=== PATIENT | male | born 1940 | race Caucasian/White ===

== ENCOUNTER 2017-04-19 11:58 | Inpatient (IN) | payer BC, OTHER ==
[2017-04-19] VITALS (9 sets, daily range): BP systolic 136–157; BP diastolic 83–93; PULSE 63–96; TEMP 37.2; O2SAT 87–97; Ht 172.7 cm; Wt 94.3 kg
[~2017-04-19] VITALS: Ht 172.7 cm; Wt 94.3 kg
[2017-04-19] MEDS ORDERED: SODIUM CHLORIDE 0.9% 1000ML 1,000 ML IV STA (12:18)
[2017-04-19] MEDS ORDERED: ALBUT/IPRATROP 3MG/0.5MG NEB 3 ML VIAL INH STA (12:25)
[2017-04-19] MEDS ORDERED: METHYLPREDNISOLONE 125 MG VIAL IV STA (12:30)
[2017-04-19] MEDS ORDERED: PIPERACILLIN/TAZOBACTAM 4.5 GM/100ML D5W IV STA (12:32)
[2017-04-19] MEDS ORDERED: LEVAQUIN 750MG / 150ML D5W IV ONE (12:45)
--- NOTE | 2017-04-19 12:49 | EMERGENCY ROOM VISIT NOTE ---
History First contact with patient: 12:13 Chief Complaint: RESPIRATORY PROBLEMS Stated Complaint: BREATHING DIFFICULTY History of Present Illness The patient is a 76 year old male with myasthenia gravis and polycythemia jennifer vera who presents to the Emergency Room with complaints of cough and shortness of breath. He has been getting progressively unwell for the past week with worsening cough and shortness of breath. He reports no problems with eyelid droop or swallowing which have previously been a problem with his myasthenia crisis. He last had a myasthenia crisis two years previously requiring plasmapheresis. He previously has had all his care in [place] but recently moved to the area. He has had his pneumococcal vaccinations. He most recent decreased his prednisone from 20->15mg 1 month previously. On arrival his oxygen saturations are 79% on room air. He denies any fevers, chills, chest pain , previous SD, asthma or COPD. His myasthenia gravis [facility] physician is Dr Morris and he sees Dr Alfaro locally. 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 HTN Hypothyroidism Hx melanoma Hx prostate cancer GERD HTN Polycythemia jennifer vera Social History Smoking Status: Former Smoker Smokeless Tobacco Use: No Alcohol Use: none Drug Use: none Marital Status: Housing Status: lives with family Current/Historical Medications Scheduled Amlodipine (Norvasc), 5 MG PO DAILY Aspirin (Aspirin Ec), 81 MG PO DAILY Azathioprine (Imuran), 50 MG PO DAILY Cholecalciferol (Vitamin D3), 1 CAP PO DAILY Hydrochlorothiazide (Hctz), 25 MG PO DAILY Levothyroxine Sodium (Levothyroxine Sodium), 1 TAB PO DAILY Omeprazole (Prilosec), 40 MG PO DAILY Prednisone (Prednisone), 1.5 TAB PO UD Pyridostigmine [place] (Mestinon), 60 MG PO QID Physical Exam Vital Signs Date Time Temp Pulse Resp B/P (MAP) Pulse Ox O2 Delivery O2 Flow Rate FiO2 04/19/17 16:15 72 23 91 04/19/17 16:01 139/81 04/19/17 16:00 73 21 90 Nasal Cannula 6.0 Humidified Oxygen 12/9/17 15:45 78 32 91 Nasal Cannula 6.0 Humidified Oxygen 04/19/17 15:30 72 28 146/80 89 04/19/17 15:15 72 41 88 04/19/17 15:00 70 31 152/77 89 Nasal Cannula 6.0 Humidified Oxygen 04/19/17 14:36 68 32 136/78 91 Nasal Cannula 6.0 Humidified Oxygen 04/19/17 13:35 73 37 92 Nasal Cannula 6.0 04/19/17 13:31 92 Nasal Cannula 6.0 04/19/17 13:31 135/102 04/19/17 13:20 72 26 88 04/19/17 13:05 74 29 83 04/19/17 13:01 140/77 04/19/17 12:50 81 27 96 04/19/17 12:35 74 15 95 04/19/17 12:30 150/90 04/19/17 12:20 80 19 93 04/19/17 12:12 79 04/19/17 12:10 37.5 77 14 135/75 79 Room Air 04/19/17 12:06 135/75 04/19/17 11:58 79 Room Air Physical Exam General Appearance: WD/WN, + mild distress (respiratory) Head: normocephalic, atraumatic Eyes: normal inspection (pupils equal) ENT: pharynx normal (moist mucus membranes) Neck: supple, no JVD, trachea midline Respiratory/Chest: no accessory muscle use, + respiratory distress (mild), + crackles (b/l worse on left base, coarse, no wheezing) Cardiovascular: regular rate, rhythm, no murmur, normal peripheral pulses Abdomen / GI: normal bowel sounds, non tender, soft Back: no CVA tenderness Extremities: no calf tenderness, normal capillary refill, no pedal edema Neurologic/Psych: alert, oriented x 3, + pertinent finding (no facial muscle fatigue noted) Medical Decision & Procedures ER Provider Diagnostic Interpretation: CHEST ONE VIEW PORTABLE CLINICAL HISTORY: Shortness of breath. COMPARISON STUDY: No previous studies for comparison. FINDINGS: There is no pneumothorax. Mild elevation of the right hemidiaphragm is noted. No pleural effusion is noted. Extensive bilateral airspace opacities are present. Cardiac size is within normal limits. No cavitation is identified. IMPRESSION: Extensive bilateral airspace opacities. Bilateral pneumonia is favored. However, pulmonary edema or hemorrhage could appear similar. Metastatic disease is also within the differential although is considered less likely. Radiographic follow-up is recommended to ensure resolution. Electronically signed by: Andre Tripathi M.D. 04/19/2017 1:05 PM Dictated Date/Time: 04/19/2017 1:03 PM Laboratory Results Test 04/19/17 12:10 04/19/17 13:45 04/19/17 14:20 04/19/17 15:49 Prothrombin Time 10.7 SECONDS (9.0-12.0) Prothromb Time International Ratio 1.0 (0.9-1.1) Troponin I 0.045 ng/ml (0-0.045) Procalcitonin 0.31 ng/ml (0-0.5) Influenza Type A (RT-PCR) Neg for Influ A (NEG) Influenza Type B (RT-PCR) Neg for Influ B (NEG) Total Bilirubin 1.1 mg/dl (0.2-1) Direct Bilirubin 0.4 mg/dl (0-0.2) Aspartate Amino Transf (AST/SGOT) 128 U/L (15-37) Alanine Aminotransferase (ALT/SGPT) 89 U/L (12-78) Alkaline Phosphatase 165 U/L (45-117) Pro-B-Type Natriuretic Peptide 138 pg/ml (0-900) Total Protein 6.5 gm/dl (6.4-8.2) Albumin 2.8 gm/dl (3.4-5.0) Arterial Blood pH 7.45 (7.35-7.45) Arterial Blood Partial Pressure CO2 43 mmHg (35-46) Arterial Blood Partial Pressure O2 62 mm/Hg (80-95) Arterial Blood HCO3 30 mmol/L (19-24) Arterial Blood Oxygen Saturation 90.0 % (90-95) Arterial Blood Base Excess 5.0 mEq/L (-9-1.8) Arterial Blood Gas Delivery 5 L [place] Test POS (POS) Date/Time Source Procedure Growth Status 04/19/17 00:00 Nasal MRSA DNA Surveillance Screen - Final Specimen Negative for MRSA by DNA Probe Complete Medications Administered Medications (Trade) Dose Ordered Sig/Kevin Route Start Time Stop Time Status Last Admin Dose Admin Sodium Chloride 1,000 ml @ 999 mls/hr Q1H1M STAT IV 04/19/17 12:18 04/19/17 13:18 DC 04/19/17 12:31 999 MLS/HR Albuterol/ Ipratropium (Duoneb) 3 ml ONE STAT INH 04/19/17 12:25 04/19/17 12:26 DC 04/19/17 12:33 3 ML Methylprednisolone Sodium Succinate (Solu-Medrol IV) 125 mg NOW STAT IV 04/19/17 12:30 04/19/17 12:33 DC 04/19/17 13:36 125 MG Piperacillin Sod/ Tazobactam Sod (Zosyn Iv) 4.5 gm NOW STAT IV 04/19/17 12:32 04/19/17 12:34 DC 04/19/17 13:36 4.5 GM Levofloxacin (Levaquin / D5W) 750 mg NOW ONCE IV 04/19/17 12:45 04/19/17 12:46 DC 04/19/17 13:58 750 MG Pyridostigmine [place] (Mestinon Tab) 60 mg ONE STAT PO 04/19/17 13:02 04/19/17 13:03 DC 04/19/17 13:57 60 MG Potassium Chloride (Klor-Con Tab) 40 meq NOW STAT PO 04/19/17 14:04 04/19/17 14:06 DC 04/19/17 14:35 40 MEQ ECG Indication: SOB/dyspnea Rate (beats per minute): 71 Comparison ECG Date: no prior available Change: Normal sinus rhythm ST & T wave abnormality, consider lateral ischemia Abnormal ECG No previous ECGs available Confirmed by JEANINE WHATLEY ([id number]) on 04/20/2017 11:59:37 AM ED Course Complete history and physical was performed by myself - labs, CXR and solu- medrol were ordered The patient was discussed with Dr Porras who separately performed history and examination After his CXR showed bilateral opacifications consistent with history and concerning for pneumonia, Zosyn and Levaquin were ordered The patient was reassessed multiple times throughout his ER stay His care was discussed with [facility]. I do not believe his current condition is consistent with myasthenia crisis and more likely represents a pneumonia therefore I do not feel an emergent transfer is currently necessary. Medical Decision Prior records/ancillary studies reviewed. Triage Nursing notes reviewed. Additional history obtained from the patient and his . The patient's history was concerning for shortness of breath with myasthenia gravis. Differential diagnosis: Etiologies such as infections, reactive airway disease, pneumonia, pneumothorax , COPD, CHF, cardiac ischemia, pulmonary embolism, musculoskeletal, gastrointestinal, as well as others were entertained. Physical examination: As above. bilateral crackles R > L ER treatment provided: 1L NSS bolus 125mg Solu-medrol IV Duoneb Zosyn 4.5g IV Levaquin 750mg IV Pyridostigmine 60mg PO (usual dose and time for patient) On reassessment the patient felt better but still requiring 5L O2. Diagnostic interpretation by me: The electrocardiogram showed some ST changes however likely demand related with troponin 0.045 The labs revealed elevated WBC and lactic acid. The patient was hypoxic (on no oxygen at home and currently requiring 5L in the ER to maintain 92-94%) Imaging studies: Chest x-ray as above Concerning findings of pneumonia with hypoxia with history of myasthenia gravis. I do not believe this represents a myasthenia crisis as currently the patient Consultation: A consultation was placed with the [facility] hospitalist (Dr Sanches). The case was discussed and diagnostics were reviewed. The patient was evaluated in the ER for further treatment. Medication Reconcilliation Current Medication List: was personally reviewed by me Consults Time Called: 13:24 Consulting Physician: Dr Sanches ([facility] Hospitalist) Returned Call: 13:24 Impression Primary Impression: Bilateral pneumonia Additional Impressions: Myasthenia gravis Hypoxia Hypokalemia Departure Information Dispostion Being Evaluated By Hospitalist Condition FAIR Referrals Kai Freeman M.D. (PCP) Patient Instructions [facility] Resident Tracking Resident Involvement: Resident Care Provided Care Provided: Adult ED Problem Qualifiers Primary Impression: Bilateral pneumonia Pneumonia type: due to unspecified organism Lung location: unspecified part of lung Qualified Codes: J18.9 - Pneumonia, unspecified organism
[2017-04-19 12:50] LABS: BASO % 0.2 %; BASO ABS # 0.03 K/uL (0-0.2); EOS % 0.1 %; EOS ABS # 0.02 K/uL (0-0.5); HEMATOCRIT 44.1 % (42-52); HEMOGLOBIN 13.7 g/dL (14.0-18.0); IG# 0.05 K/uL (0.00-0.02); LYMPH % 4.2 %; LYMPH ABS # 0.58 K/uL (1.2-3.4); MEAN CELL VOLUME 80.5 fL (80-100); MEAN CORPUSCULAR HGB CONC 31.1 g/dl (32-36); MEAN PLATELET VOLUME 9.7 fL (7.4-10.4); MONO % 4.5 %; MONO ABS # 0.62 K/uL (0.11-0.59); NEUT % 90.6 %; NEUT ABS # 12.45 K/uL (1.4-6.5); PLATELET COUNT 516 K/uL (130-400); RED CELL DISTRIBUTION WIDTH CV 17.4 % (11.5-14.5); RED CELL DISTRIBUTION WIDTH SD 50.2 fL (36.4-46.3); WHITE BLOOD COUNT 13.75 K/uL (4.8-10.8)
[2017-04-19] MEDS ORDERED: PYRIDOSTIGMINE BROMIDE 60 MG TAB PO STA (13:02)
[2017-04-19 13:06] LABS: CREATININE 1.1 mg/dl (0.60-1.40)
--- NOTE | 2017-04-19 13:07 | DIAGNOSTIC IMAGING REPORT ---
CHEST ONE VIEW PORTABLE CLINICAL HISTORY: Shortness of breath. COMPARISON STUDY: No previous studies for comparison. FINDINGS: There is no pneumothorax. Mild elevation of the right hemidiaphragm is noted. No pleural effusion is noted. Extensive bilateral airspace opacities are present. Cardiac size is within normal limits. No cavitation is identified. IMPRESSION: Extensive bilateral airspace opacities. Bilateral pneumonia is favored. However, pulmonary edema or hemorrhage could appear similar. Metastatic disease is also within the differential although is considered less likely. Radiographic follow-up is recommended to ensure resolution. Electronically signed by: Andre Tripathi M.D. 04/19/2017 1:05 PM Dictated Date/Time: 04/19/2017 1:03 PM
[2017-04-19] MEDS ORDERED: POTASSIUM CHLORIDE 20 MEQ TABCR PO STA (14:04)
--- NOTE | 2017-04-19 14:07 | EMERGENCY ROOM VISIT NOTE ---
History Report prepared by Taco: Lora Kaplan Under the Supervision of: Dr. John Porras D.O. First contact with patient: 12:13 Chief Complaint: RESPIRATORY PROBLEMS Stated Complaint: BREATHING DIFFICULTY History of Present Illness The patient is a 76 year old male who presents to the Emergency Room with complaints of worsening shortness of breath beginning 1 week ago. The patient also reports having a non-productive cough. He states that he recently decreased his prednisone, which he was on for myasthenia gravis. The patient states that he was a smoker and quit 40 years ago. Source of History: patient Onset: 1 week ago Position: other (global) Quality: other (shortness of breath ) Timing: worsening Associated Symptoms: + cough (non-productive) Review of Systems See HPI for pertinent positives & negatives. A total of 10 systems reviewed and were otherwise negative. Family History No pertinent family history stated. Social History Smoking Status: Former Smoker Marital Status: Physical Exam Vital Signs Date Time Temp Pulse Resp B/P (MAP) Pulse Ox O2 Delivery O2 Flow Rate FiO2 04/19/17 13:35 73 37 92 Nasal Cannula 6.0 04/19/17 13:31 92 Nasal Cannula 6.0 04/19/17 13:31 135/102 04/19/17 13:20 72 26 88 04/19/17 13:05 74 29 83 04/19/17 13:01 140/77 04/19/17 12:50 81 27 96 04/19/17 12:35 74 15 95 04/19/17 12:30 150/90 04/19/17 12:20 80 19 93 04/19/17 12:12 79 04/19/17 12:10 37.5 77 14 135/75 79 Room Air 04/19/17 12:06 135/75 04/19/17 11:58 79 Room Air Physical Exam CONSTITUTIONAL/VITAL SIGNS: Reviewed / noted above. GENERAL: Non-toxic in appearance. INTEGUMENTARY: Warm, dry, and [place]. HEAD: Normocephalic. EYES: without scleral icterus or trauma. ENT/OROPHARYNX: clear and moist. LYMPHADENOPATHY/NECK: Is supple without lymphadenopathy or meningismus. RESPIRATORY: Bilateral crackles. Mild increased work of breathing. CARDIOVASCULAR: Regular rate and rhythm. GI/ABDOMEN: Soft and nontender. No organomegaly or pulsatile mass. No rebound or guarding. Normal bowel sounds. EXTREMITIES: Warm and well perfused. BACK: No CVA tenderness. NEUROLOGICAL: Intact without focal deficits. PSYCHIATRIC: normal affect. MUSCULOSKELETAL: Normally developed with good muscle tone. Medical Decision & Procedures ER Provider Diagnostic Interpretation: Radiology results as stated below per my review and radiologist interpretation: CHEST ONE VIEW PORTABLE CLINICAL HISTORY: Shortness of breath. COMPARISON STUDY: No previous studies for comparison. FINDINGS: There is no pneumothorax. Mild elevation of the right hemidiaphragm is noted. No pleural effusion is noted. Extensive bilateral airspace opacities are present. Cardiac size is within normal limits. No cavitation is identified. IMPRESSION: Extensive bilateral airspace opacities. Bilateral pneumonia is favored. However, pulmonary edema or hemorrhage could appear similar. Metastatic disease is also within the differential although is considered less likely. Radiographic follow-up is recommended to ensure resolution. Electronically signed by: Andre Tripathi M.D. 04/19/2017 1:05 PM Dictated Date/Time: 04/19/2017 1:03 PM Laboratory Results 04/19/17 12:10 Red Blood Count 5.48, Mean Corpuscular Volume 80.5, Mean Corpuscular Hemoglobin 25.0, Mean Corpuscular Hemoglobin Concent 31.1, Mean Platelet Volume 9.7, Neutrophils (%) (Auto) 90.6, Lymphocytes (%) (Auto) 4.2, Monocytes (%) (Auto) 4.5, Eosinophils (%) (Auto) 0.1, Basophils (%) (Auto) 0.2, Neutrophils # (Auto) 12.45, Lymphocytes # (Auto) 0.58, Monocytes # (Auto) 0.62, Eosinophils # (Auto) 0.02, Basophils # (Auto) 0.03 04/19/17 12:10 Test 04/19/17 12:10 04/19/17 13:11 04/19/17 13:45 White Blood Count 13.75 K/uL (4.8-10.8) Red Blood Count 5.48 M/uL (4.7-6.1) Hemoglobin 13.7 g/dL (14.0-18.0) Hematocrit 44.1 % (42-52) Mean Corpuscular Volume 80.5 fL (80-100) Mean Corpuscular Hemoglobin 25.0 pg (25-34) Mean Corpuscular Hemoglobin Concent 31.1 g/dl (32-36) Platelet Count 516 K/uL (130-400) Mean Platelet Volume 9.7 fL (7.4-10.4) Neutrophils (%) (Auto) 90.6 % Lymphocytes (%) (Auto) 4.2 % Monocytes (%) (Auto) 4.5 % Eosinophils (%) (Auto) 0.1 % Basophils (%) (Auto) 0.2 % Neutrophils # (Auto) 12.45 K/uL (1.4-6.5) Lymphocytes # (Auto) 0.58 K/uL (1.2-3.4) Monocytes # (Auto) 0.62 K/uL (0.11-0.59) Eosinophils # (Auto) 0.02 K/uL (0-0.5) Basophils # (Auto) 0.03 K/uL (0-0.2) RDW Standard Deviation 50.2 fL (36.4-46.3) RDW Coefficient of Variation 17.4 % (11.5-14.5) Immature Granulocyte % (Auto) 0.4 % Immature Granulocyte # (Auto) 0.05 K/uL (0.00-0.02) Anion Gap 8.0 mmol/L (3-11) Est Creatinine Clear Calc Drug Dose 64.7 ml/min Estimated GFR () 75.7 Estimated GFR (Non- 65.3 BUN/Creatinine Ratio 15.4 (10-20) Calcium Level 9.0 mg/dl (8.5-10.1) Magnesium Level 1.8 mg/dl (1.8-2.4) Troponin I 0.045 ng/ml (0-0.045) Lactic Acid Level 3.9 mmol/L (0.4-2.0) Laboratory results as stated above per my review. Medications Administered Medications (Trade) Dose Ordered Sig/Kevin Route Start Time Stop Time Status Last Admin Dose Admin Sodium Chloride 1,000 ml @ 999 mls/hr Q1H1M STAT IV 04/19/17 12:18 04/19/17 13:18 DC 04/19/17 12:31 999 MLS/HR Albuterol/ Ipratropium (Duoneb) 3 ml ONE STAT INH 04/19/17 12:25 04/19/17 12:26 DC 04/19/17 12:33 3 ML Methylprednisolone Sodium Succinate (Solu-Medrol IV) 125 mg NOW STAT IV 04/19/17 12:30 04/19/17 12:33 DC 04/19/17 13:36 125 MG Piperacillin Sod/ Tazobactam Sod (Zosyn Iv) 4.5 gm NOW STAT IV 04/19/17 12:32 04/19/17 12:34 DC 04/19/17 13:36 4.5 GM Levofloxacin (Levaquin / D5W) 750 mg NOW ONCE IV 04/19/17 12:45 04/19/17 12:46 DC 04/19/17 13:58 750 MG Pyridostigmine [place] (Mestinon Tab) 60 mg ONE STAT PO 04/19/17 13:02 04/19/17 13:03 DC 04/19/17 13:57 60 MG ECG Indication: SOB/dyspnea Rate (beats per minute): 71 Rhythm: normal sinus Findings: other (ST changes laterally, concerning for ischemia) ED Course 1200: Previous medical records were reviewed. The patient was evaluated in room C11B by Dr. Todd. A complete history and physical examination was performed. 1218: Ordered Sodium Chloride 1,000 ml @ 999 mls/hr IV. 1225: Ordered Duoneb 3 ml INH. 1230: Ordered Methylprednisolone Sodium Succinate 125 mg IV. 1232: Ordered Zosyn Iv 4.5 gm IV. 1245: Ordered Levofloxacin 750 mg IV. 1302: Ordered Mestinon Tab 60 mg PO. 1324: Dr. Todd discussed the patient's case with Dr. Sanches. The patient will be evaluated for further treatment and disposition. 1346: Previous medical records were reviewed. The patient was evaluated in room C11B. A complete history and physical examination was performed. 1350: On reevaluation, the patient is resting. I discussed the results and findings with him. He verbalized agreement of the treatment plan. Medical Decision the differential was considered includes acute myocardial infarction, acute coronary syndrome, myocarditis, pericarditis, pericardial effusions /tamponad, esophageal perforation, pulmonary embolism, pneumonia, pneumothorax, cardiomyopathy, congestive heart, anemia , COPD/asthma exacerbation. This is a 76-year-old male who presents to the ED with a chief complaint of shortness of breath. The patient had some bilateral upper respiratory symptoms last week. He progressively worsened over the past 4 days. Further details listed above. Physical exam reveals bilateral rhonchi. EKG shows a normal sinus rhythm. White blood cell count is 13.7. Lactic acid level was 3.9. Potassium was 3.0. Chest x-ray reveals extensive bilateral infiltrates. The patient was treated with IV Levaquin and IV Zosyn. He was given 1 L normal saline and some by mouth potassium. He will be seen by the hospitalist service for further inpatient evaluation and care. He is currently not in any significant respiratory distress. Medication Reconcilliation Current Medication List: was personally reviewed by me Blood Pressure Screening Patient's blood pressure: Low blood pressure Consults Time Called: 1250 Consulting Physician: Dr. Sanches- [place] Returned Call: 1324 Dr. Todd discussed the patient's case with Dr. Sanches. The patient will be evaluated for further treatment and disposition. Impression Primary Impression: Bilateral pneumonia Additional Impression: Hypoxia Scribe Attestation The scribe's documentation has been prepared under my direction and personally reviewed by me in its entirety. I confirm that the note above accurately reflects all work, treatment, procedures, and medical decision making performed by me. Departure Information Dispostion Being Evaluated By Hospitalist Referrals Kai Freeman M.D. (PCP) Patient Instructions [facility] Problem Qualifiers
[2017-04-19] MEDS ORDERED: AZAT50TA17 PO (14:19)
[2017-04-19] MEDS ORDERED: AMLO-110 PO (14:19)
[2017-04-19] MEDS ORDERED: PYRI60TA2 PO (14:19)
[2017-04-19] MEDS ORDERED: HYDR25TA4 PO (14:19)
[2017-04-19] MEDS ORDERED: PRED10TA PO (14:19)
[2017-04-19] MEDS ORDERED: LEVO50TA6 PO (14:19)
[2017-04-19] MEDS ORDERED: CHOL2000 PO (14:19)
[2017-04-19] MEDS ORDERED: OMEP40CA41 PO (14:19)
[2017-04-19] MEDS ORDERED: ASPI81TA28 PO (14:19)
[2017-04-19] MEDS ORDERED: SODIUM CHLORIDE 0.9% 1000ML 1,000 ML IV SCH (14:25)
[2017-04-19] MEDS ORDERED: ACETAMINOPHEN 325 MG TAB PO PRN (14:30)
[2017-04-19] MEDS ORDERED: ONDANSETRON INJ 2 MG/ML 2 ML VIAL IV PRN (14:30)
[2017-04-19 15:16] LABS: INFLUENZA A PCR Neg for Influ A (NEG); INFLUENZA B PCR Neg for Influ B (NEG)
--- NOTE | 2017-04-19 16:01 | Pulmonary Consultation ---
History General Date of Service: Apr 19, 2017. Stated Complaint: Breathing Difficulty HPI The patient is a 76 year old male who presents to [facility] with complaints of Breathing Difficulty. The patient's primary care provider is Ladarius Hernandez MD. Mr. Shaikh is a 76-year-old male with history of myasthenia gravis on long- standing prednisone at 20 mg and azathioprine, hypertension, hypothyroidism who presents with 4 day history of shortness of breath and dyspnea on exertion. Patient states that he is also had nonproductive cough productive and chills. He denies any fevers. He states his dyspnea is worse upon exertion. He denies any sick contacts or recent travel. He denies any chest pain, palpitations, lightheadedness or dizziness. He denies orthopnea, paroxysmal dyspnea or lower extremity edema. He denies any lower extremity weakness. His last myasthenia gravis exacerbation was several years ago in which she received plasmapheresis. He was started on azathioprine at that time. He was managed by neurologist in [place], however recently moved to [place] lasta year to be closer to family . He was tapered down from 20 mg of prednisone in December 2016, to 15 mg. Initial vital signs upon presentation to the ER showed a pulse oximetry of 79% on room air, 37.5, pulse 77, respiratory rate 14, blood pressure 135/75. Laboratory data shows a white blood cell count of 13.75, hemoglobin 13.7, platelet count 516. Chemistry significant for potassium of 3, carbon dioxide of 33, creatinine 1.1, glucose 115. Lactate was 3.9, calcium 9, magnesium 1.8 and troponin 0.045. Influenza A and B PCR is negative. Chest x-ray showed extensive bilateral airspace opacities consistent with multifocal bilateral pneumonia. In the ER he was given 1 L normal saline bolus , albuterol/ipratropium nebulizer, Solu-Medrol 125 mg, Zosyn 4.5 g, Levaquin 750 mg, pyridostigmine 60 mg and potassium chloride 40 mEq. Historian: patient Onset: other (4 days prior to arrival) Complaint Status: persistent Review of Systems Constitutional: reports: chills Eyes: reports: as stated in HPI ENT: reports: as stated in HPI Cardiovascular: reports: as stated in HPI Respiratory: reports: cough, shortness of breath, ARIAS Gastrointestinal: reports: no symptoms Genitourinary - Male: reports: no symptoms Musculoskeletal: reports: no symptoms Integumentary: reports: no symptoms Neurologic: reports: no symptoms Psychiatric: reports: no symptoms Endocrine: no symptoms Hematologic / Lymphatic: no symptoms Allergic / Immunologic: no symptoms Past Medical History Past Medical History: Hyperlipidemia Baretts esophagus Myasthenia gravis Hyperparathyroidism 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 state [place] to be closer to family. He denies any alcohol, illicit drug use. He smoked 4-5 cigarettes per day for about 10 years. Quit 30 years ago. Hx Tobacco Use In Past Year?: No Smoking Status: Former Smoker Marital status: Allergies Coded Allergies: No Known Allergies (Unverified , 04/19/17) Current Medications Reported Home Medications Medications Dose Route/Sig Max Daily Dose Days Date Category Aspirin Ec (Aspirin) 81 Mg Tab 81 Mg PO DAILY 04/19/17 Reported Mestinon (Pyridostigmine [place]) 60 Mg Tab 60 Mg PO QID 04/19/17 Reported Imuran (Azathioprine) 50 Mg Tab 50 Mg PO DAILY 04/19/17 Reported Prilosec (Omeprazole) 40 Mg Cap 40 Mg PO DAILY 04/19/17 Reported Norvasc (Amlodipine Besylate) 5 Mg Tab 5 Mg PO DAILY 04/19/17 Reported Hctz (Hydrochlorothiazide) 25 Mg Tab 25 Mg PO DAILY 04/19/17 Reported Levothyroxine Sodium 50 Mcg Tab 1 Tab PO DAILY 04/19/17 Reported Vitamin D3 (Cholecalciferol) 2,000 Unit Cap 1 Cap PO DAILY 04/19/17 Reported Prednisone 10 Mg Tab 1.5 Tab PO UD 04/19/17 Reported Physical Physical Exam Vital Signs: Date Time Temp Pulse Resp B/P (MAP) Pulse Ox O2 Delivery O2 Flow Rate FiO2 04/19/17 14:36 68 32 136/78 91 Nasal Cannula 6.0 Humidified Oxygen 04/19/17 13:35 73 37 92 Nasal Cannula 6.0 04/19/17 13:31 92 Nasal Cannula 6.0 04/19/17 13:31 135/102 04/19/17 13:20 72 26 88 04/19/17 13:05 74 29 83 04/19/17 13:01 140/77 04/19/17 12:50 81 27 96 04/19/17 12:35 74 15 95 04/19/17 12:30 150/90 04/19/17 12:20 80 19 93 04/19/17 12:12 79 04/19/17 12:10 37.5 77 14 135/75 79 Room Air 04/19/17 12:06 135/75 04/19/17 11:58 79 Room Air General Appearance: WD/WN, uncomfortable Head: NORMOCEPHALIC, ATRAUMATIC Eyes: PERRLA, NO DISCHARGE, EOMI, SCLERAE NORMAL, CONJUNCTIVAE NORMAL ENT: NORMAL MOUTH EXAM Neck: NORMAL RANGE OF MOTION, NO TENDERNESS, TRACHEA MIDLINE, NO STRIDOR, SUPPLE, NO LYMPHADENOPATHY, NO NUCHAL RIGIDITY Respiratory: other (coarse breath sound bilaterally, with pleural rub in left upper lung field, tachypneic) Cardiovasular: REGULAR RATE/RHYTHM, NORMAL S1S2, NORMAL PERIPHERAL PULSES Abdomen: NON TENDER, NORMAL BOWEL SOUNDS, NO REBOUND Back: NORMAL INSPECTION, NO MIDLINE TENDERNESS, NO CVA TENDERNESS Upper Extremities: NO EDEMA, NO DEFORMITY, NORMAL ROM Lower Extremities: NO EDEMA, NO DEFORMITY, NORMAL ROM Pulses: dorsalis pedis (R) (1+), dorsalis pedis (L) (2+) Neuro: ALERT, ORIENTED x 3, NORMAL MOTOR EXAM, NORMAL SENSATION, NORMAL CEREBELLAR EXAM, NORMAL SPEECH, NORMAL MEMORY Psychiatric: NORMAL AFFECT, NO SUICIDAL IDEATION, CONTRACTS FOR SAFETY Diagnostics Labs Results Past 24 Hours Test 04/19/17 12:10 04/19/17 13:11 04/19/17 13:45 04/19/17 14:56 Range/Units White Blood Count 13.75 4.8-10.8 K/uL Red Blood Count 5.48 4.7-6.1 M/uL Hemoglobin 13.7 14.0-18.0 g/dL Hematocrit 44.1 42-52 % Mean Corpuscular Volume 80.5 80-100 fL Mean Corpuscular Hemoglobin 25.0 25-34 pg Mean Corpuscular Hemoglobin Concent 31.1 32-36 g/dl Platelet Count 516 130-400 K/uL Mean Platelet Volume 9.7 7.4-10.4 fL Neutrophils (%) (Auto) 90.6 % Lymphocytes (%) (Auto) 4.2 % Monocytes (%) (Auto) 4.5 % Eosinophils (%) (Auto) 0.1 % Basophils (%) (Auto) 0.2 % Neutrophils # (Auto) 12.45 1.4-6.5 K/uL Lymphocytes # (Auto) 0.58 1.2-3.4 K/uL Monocytes # (Auto) 0.62 0.11-0.59 K/uL Eosinophils # (Auto) 0.02 0-0.5 K/uL Basophils # (Auto) 0.03 0-0.2 K/uL RDW Standard Deviation 50.2 36.4-46.3 fL RDW Coefficient of Variation 17.4 11.5-14.5 % Immature Granulocyte % (Auto) 0.4 % Immature Granulocyte # (Auto) 0.05 0.00-0.02 K/uL Sodium Level 140 136-145 mmol/L Potassium Level 3.0 3.5-5.1 mmol/L Chloride Level 98 98-107 mmol/L Carbon Dioxide Level 33 21-32 mmol/L Anion Gap 8.0 3-11 mmol/L Blood Urea Nitrogen 17 7-18 mg/dl Creatinine 1.10 0.60-1.40 mg/dl Est Creatinine Clear Calc Drug Dose 64.7 ml/min Estimated GFR () 75.7 Estimated GFR (Non- 65.3 BUN/Creatinine Ratio 15.4 10-20 Random Glucose 115 70-99 mg/dl Calcium Level 9.0 8.5-10.1 mg/dl Magnesium Level 1.8 1.8-2.4 mg/dl Troponin I 0.045 0-0.045 ng/ml Lactic Acid Level 3.9 0.4-2.0 mmol/L Microbiology Results 04/19/17 Blood Culture, Received Pending 04/19/17 Blood Culture, Received Pending Diagnostic Radiology CHEST ONE VIEW PORTABLE CLINICAL HISTORY: Shortness of breath. COMPARISON STUDY: No previous studies for comparison. FINDINGS: There is no pneumothorax. Mild elevation of the right hemidiaphragm is noted. No pleural effusion is noted. Extensive bilateral airspace opacities are present. Cardiac size is within normal limits. No cavitation is identified. IMPRESSION: Extensive bilateral airspace opacities. Bilateral pneumonia is favored. However, pulmonary edema or hemorrhage could appear similar. Metastatic disease is also within the differential although is considered less likely. Radiographic follow-up is recommended to ensure resolution EKG EKG Normal sinus rhythm, [address] & T wave abnormality, consider lateral ischemia Abnormal ECG No previous ECGs available Impression Assessment and Plan Hypoxemic respiratory failure Multifocal pneumonia Myasthenia gravis Mr. Shaikh is a 76-year-old male with history of myasthenia gravis now with multifocal pneumonia and hypoxic respiratory failure. Patient has been on long- standing azathioprine as well as prednisone which puts him at risk for opportunistic infections as well as community-acquired pneumonia. Patient remains patient remains hypoxic despite supplemental oxygenation. Patient has mild elevation in CO2 and my fear is that he may ultimately decompensate secondary to increased work of breathing. I have consulted ICU and discussd case with Dr. Rhina stewart has accepted patient upon my recommendation. I would continue his supplemental oxygen to maintain an SaO2 above 92%. This can be obtained with high flow nasal cannula on BiPAP to assist with the work of breathing. However if he should decompensate intubation is warranted. I recommend broad-spectrum antibiotics with vancomycin, Zosyn or cefepime. We have to be careful with antibiotics such as aminoglycosides, fluoroquinolones tetracyclines and macrolides as they can exacerbate myasthenic gravis and place him into crisis. He has been on long-standing prednisone and should ideally cover empirically for PCP with Bactrim. If he shows no improvement, recommend bronchoscopy and BAL. Follow up blood cultures. I recommend putting him systemic corticosteroids while he is critically ill for relative adrenal insufficiency. Obviously his blood sugars will have to be closely monitored. Check a TSH. I have also ordered an ABG as well as CT chest of early evaluate degree of hypoxemia and hypercarbia as well as his lung parenchymal, respectively. He does not appear to be clinically fluid overloaded however still ordered a BNP. Also check transthoracic echo. He denies any dysphasia but may be silently aspirating. Can evaluate further with video swallowing evaluation. Continue with DVT and GI prophylaxis. I appreciate the consult and will continue to follow with you. Please contact with any further questions or concerns.
[2017-04-19] MEDS ORDERED: GLUCAGON FOR INJ 1 MG VIAL SQ PRN ×2 (16:30→17:15)
[2017-04-19] MEDS ORDERED: ICU ELECTROLYTE REPLACEMENT PROTOCOL PRN ×2 (16:30→19:45)
[2017-04-19] MEDS ORDERED: ICU PROTOCOL FOR HYPERGLYCEMIA PRN ×2 (16:30→19:45)
[2017-04-19] MEDS ORDERED: DEXTROSE 50% 50 ML SYR IV PRN ×2 (16:30→17:15)
[2017-04-19] MEDS ORDERED: GLUCOSE 10 TABS/TUBE PO PRN ×2 (16:30→17:15)
[2017-04-19] MEDS ORDERED: GLUCOSE 40% GEL 15 GM TUBE PO PRN ×2 (16:30→17:15)
[2017-04-19] MEDS ORDERED: LEVALBUTEROL 0.63MG/3 ML NEB INH PRN (16:30)
--- NOTE | 2017-04-19 17:13 | Critical Care Consultation ---
Critical Care Consultation Date of Consultation: Apr 19, 2017. Attending Physician: Reason for Consultation: Acute Respiratory Failure History of Present Illness Patient is a 76 year old male with a past medical history of myasthenia gravis currently on chronic prednisone therapy (15mg daily) and Azathioprine that presents with a 4 day history of progressive shortness of breath. The patient states that it initially started as a cough but became progressively short of breath to the point that walking up and down the stars was making him winded. He also states that he has been having sweats at night. His cough has been dry and constant throughout the day, and denies any fevers, chills, nausea, vomiting , diarrhea, abdominal pain, chest pain, or headaches. He is currently on 15mg of Prednison daily that was recently reduced from 20mg daily. He follow with Dr. Duke for hematology and Dr. Perez of neurology. The patient has previously had plasmapheresis as treatment for an MG exacerbation several years ago. The patient was assessed in the ED this afternoon and found to be hypoxic with a oxygen saturation on 79% on room air. The patient is not chronically on home oxygen. At time of evaluation the patient was 90% on 6L NC and was becoming winded with speaking. His CXR revealed revealed extensive bilateral airspace opacities. Due to the concern for acute respiratory failure the critical care team was consulted. Past Medical/Surgical History Myasthenia Gravis, HTN, Hypothyroidism Social History Smoking Status: Former Smoker Smokeless Tobacco Use: No Drug Use: none Marital Status: Housing Status: lives with family Allergies Coded Allergies: No Known Allergies (Unverified , 04/19/17) Home Medications Scheduled Amlodipine (Norvasc), 5 MG PO DAILY Aspirin (Aspirin Ec), 81 MG PO DAILY Azathioprine (Imuran), 50 MG PO DAILY Cholecalciferol (Vitamin D3), 1 CAP PO DAILY Hydrochlorothiazide (Hctz), 25 MG PO DAILY Levothyroxine Sodium (Levothyroxine Sodium), 1 TAB PO DAILY Omeprazole (Prilosec), 40 MG PO DAILY Prednisone (Prednisone), 1.5 TAB PO UD Pyridostigmine [place] (Mestinon), 60 MG PO QID Current Inpatient Medications Current Inpatient Medications Medications (Trade) Dose Ordered Sig/Kevin Route Start Time Stop Time Status Last Admin Dose Admin Enoxaparin Sodium (Lovenox Inj) 40 mg Q24H SC 04/19/17 14:30 05/19/17 14:29 UNV Acetaminophen (Tylenol Tab) 650 mg Q4H PRN PO 04/19/17 14:30 05/19/17 14:29 Ondansetron HCl (Zofran Inj) 4 mg Q6H PRN IV 04/19/17 14:30 05/19/17 14:29 Amlodipine Besylate (Norvasc Tab) 5 mg DAILY PO 04/20/17 09:00 05/20/17 08:59 Aspirin (Ecotrin Tab) 81 mg DAILY PO 04/20/17 09:00 05/20/17 08:59 Azathioprine (Imuran Tab) 50 mg DAILY PO 04/20/17 09:00 05/20/17 08:59 Levothyroxine Sodium (Synthroid Tab) 50 mcg DAILYBB PO 04/20/17 07:00 05/20/17 06:59 Prednisone (PredniSONE TAB) 15 mg UD PO 04/19/17 14:30 05/19/17 14:29 UNV Pyridostigmine [place] (Mestinon Tab) 60 mg QID PO 04/19/17 17:00 05/19/17 16:59 UNV Pantoprazole Sodium (Protonix Tab) 40 mg DAILY PO 04/20/17 09:00 05/20/17 08:59 Levofloxacin 750 mg/Prmx 150 ml @ 100 mls/hr Q24H IV 04/19/17 14:45 04/26/17 14:44 UNV Ampicillin Sodium/ Sulbactam Sodium 3000 mg/Sodium Chloride 108 ml @ 200 mls/hr Q6H IV 04/19/17 14:45 04/26/17 14:44 UNV Albuterol/ Ipratropium (Duoneb) 3 ml QIDR INH 04/19/17 16:00 05/19/17 15:59 UNV Hydrocortisone Sodium Succinate 50 mg/Syringe 1 ml @ 4 mls/min Q8 IV 04/19/17 22:00 04/20/17 14:01 UNV Parenteral Electrolyte Solution 1,000 ml @ 100 mls/hr Q10H IV 04/19/17 16:30 05/19/17 16:29 UNV Miscellaneous Information ( [facility] Electrolyte Replacement Protocol) 1 ea per protocol PRN N/A 04/19/17 16:30 12/16/17 16:29 Levalbuterol (Xopenex 0.63 Mg/ 3 Ml Neb) 0.63 mg Q6H PRN INH 04/19/17 16:30 05/19/17 16:29 Miscellaneous Information ([facility] Protocol For Hyperglycemia) 1 ea PRN PRN N/A 04/19/17 16:30 04/21/17 16:29 Glucose (Glucose 40% Gel) 15-30 GRAMS 15 GRAMS... UD PRN PO 04/19/17 16:30 05/19/17 16:29 Glucose (Glucose Chew Tab) 4-8 Tablets 4 Tabl... UD PRN PO 04/19/17 16:30 05/19/17 16:29 Dextrose (Dextrose 50% 50ML Syringe) 25-50ML OF 50% DW IV FOR... UD PRN IV 04/19/17 16:30 05/19/17 16:29 Glucagon (Glucagon Inj) 1 mg UD PRN SQ 04/19/17 16:30 05/19/17 16:29 Review of Systems Constitutional: + fatigue, No fever, No chills Eyes: No worsening of vision, No diplopia Respiratory: + cough, + shortness of breath, No sputum, No wheezing Cardiovascular: No chest pain, No palpitations Abdomen: No pain, No nausea, No vomiting Neurologic: No weakness, No numbness/tingling Physical Exam Date Time Temp Pulse Resp B/P (MAP) Pulse Ox O2 Delivery O2 Flow Rate FiO2 04/19/17 16:15 72 23 91 04/19/17 16:01 139/81 04/19/17 16:00 73 21 90 Nasal Cannula 6.0 Humidified Oxygen 04/19/17 15:45 78 32 91 Nasal Cannula 6.0 Humidified Oxygen 04/19/17 15:30 72 28 146/80 89 04/19/17 15:15 72 41 88 04/19/17 15:00 70 31 152/77 89 Nasal Cannula 6.0 Humidified Oxygen 04/19/17 14:36 68 32 136/78 91 Nasal Cannula 6.0 Humidified Oxygen 04/19/17 13:35 73 37 92 Nasal Cannula 6.0 04/19/17 13:31 92 Nasal Cannula 6.0 04/19/17 13:31 135/102 04/19/17 13:20 72 26 88 12/9/17 13:05 74 29 83 04/19/17 13:01 140/77 04/19/17 12:50 81 27 96 04/19/17 12:35 74 15 95 04/19/17 12:30 150/90 04/19/17 12:20 80 19 93 04/19/17 12:12 79 04/19/17 12:10 37.5 77 14 135/75 79 Room Air 04/19/17 12:06 135/75 04/19/17 11:58 79 Room Air General Appearance: WD/WN, uncomfortable Head: normocephalic, atraumatic Neck: trachea midline, supple Respiratory: other (Bilateral crackles. Patient short of breath and unable to speak full sentences without becoming winded. No accessory muscle use and currently on nasal cannula.) Cardiovasular: regular rate/rhythm, normal S1S2, no M/G/R Abdomen: non tender, normal bowel sounds Neuro: alert, oriented x 3 Laboratory Results Last 24 Hours Test 04/19/17 12:10 04/19/17 13:11 04/19/17 13:45 04/19/17 14:20 White Blood Count 13.75 K/uL Red Blood Count 5.48 M/uL Hemoglobin 13.7 g/dL Hematocrit 44.1 % Mean Corpuscular Volume 80.5 fL Mean Corpuscular Hemoglobin 25.0 pg Mean Corpuscular Hemoglobin Concent 31.1 g/dl Platelet Count 516 K/uL Mean Platelet Volume 9.7 fL Neutrophils (%) (Auto) 90.6 % Lymphocytes (%) (Auto) 4.2 % Monocytes (%) (Auto) 4.5 % Eosinophils (%) (Auto) 0.1 % Basophils (%) (Auto) 0.2 % Neutrophils # (Auto) 12.45 K/uL Lymphocytes # (Auto) 0.58 K/uL Monocytes # (Auto) 0.62 K/uL Eosinophils # (Auto) 0.02 K/uL Basophils # (Auto) 0.03 K/uL RDW Standard Deviation 50.2 fL RDW Coefficient of Variation 17.4 % Immature Granulocyte % (Auto) 0.4 % Immature Granulocyte # (Auto) 0.05 K/uL Sodium Level 140 mmol/L Potassium Level 3.0 mmol/L Chloride Level 98 mmol/L Carbon Dioxide Level 33 mmol/L Anion Gap 8.0 mmol/L Blood Urea Nitrogen 17 mg/dl Creatinine 1.10 mg/dl Est Creatinine Clear Calc Drug Dose 64.7 ml/min Estimated GFR () 75.7 Estimated GFR (Non- 65.3 BUN/Creatinine Ratio 15.4 Random Glucose 115 mg/dl Calcium Level 9.0 mg/dl Magnesium Level 1.8 mg/dl Troponin I 0.045 ng/ml Lactic Acid Level 3.9 mmol/L Influenza Type A (RT-PCR) Neg for Influ A Influenza Type B (RT-PCR) Neg for Influ B Pro-B-Type Natriuretic Peptide 138 pg/ml Test 04/19/17 15:49 04/19/17 16:24 Arterial Blood pH 7.45 Arterial Blood Partial Pressure CO2 43 mmHg Arterial Blood Partial Pressure O2 62 mm/Hg Arterial Blood HCO3 30 mmol/L Arterial Blood Oxygen Saturation 90.0 % Arterial Blood Base Excess 5.0 mEq/L Arterial Blood Gas Delivery 5 L [place] Test POS Lactic Acid Level 2.7 mmol/L Assessment & Plan Patient is a 76 year old male that presents with acute hypoxic respiratory failure 2/2 presumed bilateral pneumonia Neuro - [facility] ICU- Negative - Alert and Oriented - Continue Azathioprine 50mg daily for MG - Continue Pyridostigmine Bromine 60mg QID home medication - 120mg Solumedrol IV in ED - 50mg Hydrocortisone q8h IV - Consult Neurology Respiratory - CXR: . However, pulmonary edema or hemorrhage could appear similar. Metastatic disease is also within the differential although is considered less likely. Radiographic follow-up is recommended to ensure resolution. - Follow up Chest CT ordered - 7.45/ / / 30 - Pulmonary Consult - 120mg Solumedrol in ED, 50mg Hydrocortisone q8h IV - Vancomycin, Zosyn, and Levaquin broad spectrum coverage - Tamiflu Prophylaxis - Currently on oxygen to maintain O2 sats > 90% - Patient full code and consent obtained for Bronchoscopy, A-line, Central Line , Intubation, and Blood Transfusions - Admission to the ICU - Lactic Acid Initially 3.9, repeat 2.7 --> Trend q4h - Influenza A & B negative - Mycoplasma pending - Procalcitonin Pending CV: - Hemodynamically stable - Continue home Norvasc 5mg daily - Holding home HCTZ due to hypokalemia - Normosol 100cc/hr - Aspirin 81mg daily GI: - Protonix 40mg PO Daily - AHA Diet Renal: - Hypokalemia (3.0) - Holding home HCTZ - 40mEq of KCl in the ED - Daily BMP Endo: - Continue home Levothyroxine 50 mcg - Monitor blood sugars as patient on high dose steroid Heme/ ID: - Leukocytosis - 13.75 - Bilateral Airspace Opacities on CXR - Broad Spectrum Antibiotic coverage + Tamiflu prophylaxis - H/H: 13.7/44.1 - Thrombocytosis- Platelets 516 DVT Prophylaxis: - Lovenox GI Prophylaxis: - Protonix Code Status: - Full Resuscitation Resident Physician Supervision Note: Dr. Griffith was resident physician during care of patient. I separately evaluated patient and did history and exam. I discussed the case with the resident and generally agree with the findings and plan. Patient in hypoxic respiratory failure, does not wear oxygen at baseline. Initial concern was for bilateral pneumonia possibly concerning for ARDS. Obtain CT scan which demonstrated multiple pulmonary nodules, obtained contrasted CT scan of chest as well as abdomen pelvis and there appears to be nodules in both the soft tissue, muscles, liver. Differential diagnoses included metastatic melanoma, upon additional questioning patient remembered he had a removal of melanoma lesion of the right naris in approximately September of this year. I advised the patient of the CT findings, we will discuss these findings with his family tomorrow, we have consult to Dr. Duke of oncology, we have started empiric Lovenox 1 mg/kg twice a day I have personally spent 175 minutes of critical care time in the direct management of this patient. This is a life/limb threatening event. This includes time spent evaluating patient, direct bedside care, chart review, placing orders, interpretation of diagnostic studies, discussion with consultants, patient, and family members, as well as other required patient management activities. This time is exclusive of all separately billable procedures, and teaching time and separate from and in addition to any other critical care service time. Documented By: Roldan Lantigua DO Resident Tracking Resident Involvement: Resident Care Provided Care Provided: Adult Hospital Medicine
--- NOTE | 2017-04-19 17:32 | DIAGNOSTIC IMAGING REPORT ---
CT OF THE CHEST WITHOUT IV CONTRAST CLINICAL HISTORY: Shortness of breath. Pneumonia. COMPARISON STUDY: Chest radiograph April 19, 2017. CT DOSE: 990.86 mGy.cm TECHNIQUE: Axial images of the chest were obtained without IV contrast. Images were reviewed in the axial, sagittal, and coronal planes. IV contrast was not administered for this examination. A dose lowering technique was utilized adhering to the principles of ALARA. FINDINGS: A few prominent mediastinal lymph nodes are present. The size of the heart is normal. There is no pericardial effusion. A small hiatal hernia is noted. A mildly enlarged distal paraesophageal lymph node is noted. There are innumerable nodules throughout the lungs, the largest of which is a 2.2 cm left lower lobe nodule. The nodules are confluent. In addition, there is possible superimposed airspace opacity within the lungs. There is no cavitation. There is no pneumothorax or pleural effusion. Central airways are patent. No suspicious osseous lesions are identified within the bony thorax. A tracheal diverticulum along the right aspect of the trachea at the level of the thoracic inlet is incidentally noted. Visualized portions of the upper abdomen reveal a possible hypodense hepatic lesions, including a 3 cm subcapsular right hepatic lobe lesion and additional 3.7 cm right hepatic dome lesion. There are also several nonspecific upper abdominal soft tissue nodules that measure up to 1.2 cm. IMPRESSION: 1. Innumerable nodules throughout the lungs. Although nonspecific, extensive metastatic disease is favored. Metastatic melanoma could have this imaging appearance. Findings discussed with Dr. Lantigua at time of dictation. 2. Upper lobe predominant airspace opacity within the lungs which could reflect superimposed pneumonia. 3. Possible hypodense hepatic lesions which raise the possibility of metastatic disease. A contrast-enhanced CT of the abdomen and pelvis could be obtained. 4. Multiple small indeterminate but suspicious upper abdominal nodules/implants which favor metastatic disease. Electronically signed by: Andre Tripathi M.D. 04/19/2017 5:31 PM Dictated Date/Time: 04/19/2017 5:12 PM
[2017-04-19] MEDS ORDERED: OPTIRAY 320 IV PRN (17:45)
[2017-04-19] MEDS ORDERED: OSELTAMIVIR PHOSPHATE 75 MG CAP PO SCH (18:00)
[2017-04-19] MEDS: NORMOSOL R 1,000 ML IV SCH (18:05)
[2017-04-19] MEDS: HYDROCORTISONE IV 50 MG in SYRINGE 0 ML IV SCH (18:05)
[2017-04-19] MEDS ORDERED: THIAMINE HCL INJ 200 MG in SODIUM CHLORIDE 0.9% 50ML 50 ML IV ONE (18:30)
[2017-04-19] MEDS: ALBUT/IPRATROP 3MG/0.5MG NEB 3 ML VIAL INH SCH (18:55)
[2017-04-19] MEDS ORDERED: ENOXAPARIN 40 MG/0.4 ML SYR SC SCH (19:00)
--- NOTE | 2017-04-19 19:04 | DIAGNOSTIC IMAGING REPORT ---
CT ANGIOGRAPHY OF THE CHEST, PULMONARY EMBOLUS PROTOCOL CLINICAL HISTORY: Bilateral airspace opacities. Acute respiratory failure. COMPARISON STUDY: Chest radiograph and chest CT performed earlier today. TECHNIQUE: Following IV administration of 119 mL of Optiray-320, helical axial images of the chest were obtained utilizing the pulmonary embolus protocol. Maximal intensity projections and sagittal and coronal reformats were viewed on an independent 3D workstation. IV contrast was administered without complication. A dose lowering technique was utilized adhering to the principles of ALARA. FINDINGS: No pulmonary emboli are identified although the segmental and subsegmental pulmonary arteries are suboptimally assessed due to respiratory motion. There are innumerable nodules within the lungs, the largest of which is a 2.2 cm left lower lobe nodule. In addition, there is apparent superimposed upper lobe airspace opacity. There is no cavitation. No pneumothorax or pleural effusion is present. Note is made of an enlarged posterior left hilar lymph node that measures 1.7 cm. A possible right anterior chest wall implant is noted. A 6 mm subcutaneous nodule of the left aspect of the back is noted. Multiple hepatic metastases and upper abdominal implants are better depicted on the abdominal CT. There are no suspicious osseous lesions. IMPRESSION: 1. No pulmonary emboli identified although segmental and subsegmental pulmonary arteries suboptimally assessed due to respiratory motion. 2. Innumerable pulmonary nodule is consistent with extensive metastatic disease. 3. Upper lobe predominant airspace opacity within the lungs which could reflect superimposed pneumonia. 4. Mild mediastinal lymphadenopathy and multiple soft tissue implants. This is consistent with metastatic disease and this distribution raises the possibility of metastatic melanoma. Electronically signed by: Andre Tripathi M.D. 04/19/2017 7:02 PM Dictated Date/Time: 04/19/2017 6:49 PM
--- NOTE | 2017-04-19 19:17 | DIAGNOSTIC IMAGING REPORT ---
CT OF THE ABDOMEN AND PELVIS WITH CONTRAST CLINICAL HISTORY: Abnormal chest CT. COMPARISON STUDY: None. TECHNIQUE: Following IV administration of 119 mL of Optiray-320, axial images of the abdomen and pelvis were obtained from the lung bases to the proximal femurs. Images were reviewed in the axial, sagittal, and coronal planes. IV contrast was administered without complication. A dose lowering technique was utilized adhering to the principles of ALARA. CT DOSE: 1262.84 mGy.cm FINDINGS: The chest will be reported separately. However, innumerable nodules are noted within the lungs. There are innumerable bilobar hepatic metastases, including a 3.2 cm right hepatic dome lesion and a 2.9 cm lateral segment lesion. There is a suspected 1 cm splenic lesion. The adrenal glands and pancreas are unremarkable. A few subcentimeter renal lesions likely reflect cysts. There is no evidence for a bowel reduction. No pneumatosis, free air or portal venous gas is present. There are numerous implants throughout the abdomen and pelvis including multiple enhancing intramuscular lesions. Specifically, there is a 1.1 cm lesion within the left paraspinal musculature at the L3 level as well as enhancing lesions within the left abductor musculature and left proximal thigh musculature as well as the lateral aspect of the left gluteus marian. A small implant is noted within the right gluteal musculature. The prostate is surgically absent. There are fat-containing bilateral inguinal hernias. Multiple nodules along the colon are noted, including a 2.9 x 1.1 cm nodule posterior to the mid descending colon. Major vasculature of the abdomen and pelvis is patent. A few subtle lucencies within the skeletal structures are indeterminate. IMPRESSION: Findings consistent with extensive metastatic disease with innumerable pulmonary and hepatic metastases and numerous soft tissue implants, including intramuscular metastases. This distribution raises the possibility of metastatic melanoma. Additional sites of metastatic disease, as detailed above. Discussed with Dr. Lantigua at time of dictation. Electronically signed by: Andre Tripathi M.D. 04/19/2017 7:16 PM Dictated Date/Time: 04/19/2017 7:04 PM
[2017-04-19 19:19] LABS: ALBUMIN 2.8 gm/dl (3.4-5.0); TOTAL PROTEIN 6.5 gm/dl (6.4-8.2)
[2017-04-19] MEDS ORDERED: ENOXAPARIN 1 MG/KG SQ SCH (19:30)
--- NOTE | 2017-04-19 20:15 | History and Physical ---
History & Physical Date & Time of Service: Apr 19, 2017 at 19:38 Chief Complaint: Acute Respiratory Failure Primary Care Physician: Ladarius Hernandez MD History of Present Illness Source: patient, family, clinic records, hospital records This is a 76 year old male with a PMH of myasthenia gravis on long-term pyridostigmine, azathioprine, and prednisone; hx. of hypothyroidism, HTN, melanoma, polycythemia vera - presents with a four day history of shortness of breath and dyspnea on exertion. As per patient, he has been developing this facial congestion, cough and difficulty breathing for the past four days. On the day of arrival, he was seen by primary care doctor and was found to be hypoxic in the upper 70's. He was sent to the ED for further evaluation. In the ED, patient was found to be hypoxic on room air and was placed on 5L O2 via NC. He had a CXR which favored bilateral pneumonia and he was started on antibiotics. He denied chest pain or palpitations. Denied fevers/chills. After the admission, pulmonary saw the patient and decided that due to increased work of breathing, patient should be transferred to the ICU. Chest CT was then performed and patient was found to have nodular appearance likely secondary to metastatic melanoma. Abdominal CT was also performed - which suggested metastatic disease to liver and intramuscularly. Patient was then placed on bipap for improved oxygenation. Social History Smoking Status: Former Smoker Smokeless Tobacco Use: No Drug Use: none Marital Status: Allergies Coded Allergies: No Known Allergies (Unverified , 04/19/17) Home Medications Scheduled Amlodipine (Norvasc), 5 MG PO DAILY Aspirin (Aspirin Ec), 81 MG PO DAILY Azathioprine (Imuran), 50 MG PO DAILY Cholecalciferol (Vitamin D3), 1 CAP PO DAILY Hydrochlorothiazide (Hctz), 25 MG PO DAILY Levothyroxine Sodium (Levothyroxine Sodium), 1 TAB PO DAILY Omeprazole (Prilosec), 40 MG PO DAILY Prednisone (Prednisone), 1.5 TAB PO UD Pyridostigmine [place] (Mestinon), 60 MG PO QID Review of Systems Constitutional: No fever, No chills, No sweats Respiratory: + cough, + sputum, + shortness of breath, + dyspnea on exertion, No wheezing, No dyspnea at rest, No hemoptysis Cardiovascular: No chest pain, No orthopnea, No edema, No palpitations Abdomen: No pain, No nausea, No vomiting, No diarrhea, No constipation, No GI bleeding Musculoskeletal: No joint pain, No muscle pain Genitourinary - Male: No hematuria, No dysuria, No urinary frequency, No urinary urgency Neurologic: No memory loss, No paralysis Psychiatric: No depression symptoms Endocrine: No fatigue Hematologic / Lymphatic: No abnormal bleeding/bruising Integumentary: No rash Allergic / Immunologic: No environmental allergies, No seasonal allergies Physical Exam Vital Signs Date Time Temp Pulse Resp B/P (MAP) Pulse Ox O2 Delivery O2 Flow Rate FiO2 04/19/17 18:57 75 22 90 Nasal Cannula 6.0 04/19/17 17:18 82 97 04/19/17 17:17 82 28 97 BiPAP/CPAP 50 04/19/17 17:05 84 22 157/93 (114) 97 CPAP 04/19/17 16:43 70 31 151/89 92 04/19/17 16:15 72 23 91 04/19/17 16:01 139/81 04/19/17 16:00 73 21 90 Nasal Cannula 6.0 Humidified Oxygen 04/19/17 15:45 78 32 91 Nasal Cannula 6.0 Humidified Oxygen 04/19/17 15:30 72 28 146/80 89 04/19/17 15:15 72 41 88 04/19/17 15:00 70 31 152/77 89 Nasal Cannula 6.0 Humidified Oxygen 04/19/17 14:36 68 32 136/78 91 Nasal Cannula 6.0 Humidified Oxygen 04/19/17 13:35 73 37 92 Nasal Cannula 6.0 04/19/17 13:31 92 Nasal Cannula 6.0 04/19/17 13:31 135/102 04/19/17 13:20 72 26 88 04/19/17 13:05 74 29 83 04/19/17 13:01 140/77 04/19/17 12:50 81 27 96 04/19/17 12:35 74 15 95 04/19/17 12:30 150/90 04/19/17 12:20 80 19 93 04/19/17 12:12 79 04/19/17 12:10 37.5 77 14 135/75 79 Room Air 04/19/17 12:06 135/75 12/9/17 11:58 79 Room Air General Appearance: + moderate distress (secondary to shortness of breath), + pertinent finding (unable to complete full sentences without shortness of breath ) Head: normocephalic, atraumatic Eyes: normal inspection ENT: hearing grossly normal Respiratory/Chest: chest non-tender, + respiratory distress, + decreased breath sounds, + crackles Cardiovascular: regular rate, rhythm, no edema, no gallop, no JVD, no murmur, normal peripheral pulses Abdomen/GI: normal bowel sounds, non tender, soft Extremities/Musculoskelatal: normal inspection, no calf tenderness, normal capillary refill, no pedal edema, normal range of motion Neurologic/Psych: video network engineer II-XII nml as tested, no motor/sensory deficits, alert, normal mood/affect, oriented x 3 Skin: normal color Lymphatic: no adenopathy Diagnostics Laboratory Results Results Past 24 Hours Test 04/19/17 12:10 04/19/17 13:11 04/19/17 13:45 04/19/17 14:20 Range/Units White Blood Count 13.75 4.8-10.8 K/uL Red Blood Count 5.48 4.7-6.1 M/uL Hemoglobin 13.7 14.0-18.0 g/dL Hematocrit 44.1 42-52 % Mean Corpuscular Volume 80.5 80-100 fL Mean Corpuscular Hemoglobin 25.0 25-34 pg Mean Corpuscular Hemoglobin Concent 31.1 32-36 g/dl Platelet Count 516 130-400 K/uL Mean Platelet Volume 9.7 7.4-10.4 fL Neutrophils (%) (Auto) 90.6 % Lymphocytes (%) (Auto) 4.2 % Monocytes (%) (Auto) 4.5 % Eosinophils (%) (Auto) 0.1 % Basophils (%) (Auto) 0.2 % Neutrophils # (Auto) 12.45 1.4-6.5 K/uL Lymphocytes # (Auto) 0.58 1.2-3.4 K/uL Monocytes # (Auto) 0.62 0.11-0.59 K/uL Eosinophils # (Auto) 0.02 0-0.5 K/uL Basophils # (Auto) 0.03 0-0.2 K/uL RDW Standard Deviation 50.2 36.4-46.3 fL RDW Coefficient of Variation 17.4 11.5-14.5 % Immature Granulocyte % (Auto) 0.4 % Immature Granulocyte # (Auto) 0.05 0.00-0.02 K/uL Prothrombin Time 10.7 9.0-12.0 SECONDS Prothromb Time International Ratio 1.0 0.9-1.1 Sodium Level 140 136-145 mmol/L Potassium Level 3.0 3.5-5.1 mmol/L Chloride Level 98 98-107 mmol/L Carbon Dioxide Level 33 21-32 mmol/L Anion Gap 8.0 3-11 mmol/L Blood Urea Nitrogen 17 7-18 mg/dl Creatinine 1.10 0.60-1.40 mg/dl Est Creatinine Clear Calc Drug Dose 64.7 ml/min Estimated GFR () 75.7 Estimated GFR (Non- 65.3 BUN/Creatinine Ratio 15.4 10-20 Random Glucose 115 70-99 mg/dl Calcium Level 9.0 8.5-10.1 mg/dl Magnesium Level 1.8 1.8-2.4 mg/dl Troponin I 0.045 0-0.045 ng/ml Procalcitonin 0.31 0-0.5 ng/ml Lactic Acid Level 3.9 0.4-2.0 mmol/L Influenza Type A (RT-PCR) Neg for Influ A NEG Influenza Type B (RT-PCR) Neg for Influ B NEG Total Bilirubin 1.1 0.2-1 mg/dl Direct Bilirubin 0.4 0-0.2 mg/dl Aspartate Amino Transf (AST/SGOT) 128 15-37 U/L Alanine Aminotransferase (ALT/SGPT) 89 12-78 U/L Alkaline Phosphatase 165 45-117 U/L Pro-B-Type Natriuretic Peptide 138 0-900 pg/ml Total Protein 6.5 6.4-8.2 gm/dl Albumin 2.8 3.4-5.0 gm/dl Test 04/19/17 15:49 Range/Units Arterial Blood pH 7.45 7.35-7.45 Arterial Blood Partial Pressure CO2 43 35-46 mmHg Arterial Blood Partial Pressure O2 62 80-95 mm/Hg Arterial Blood HCO3 30 19-24 mmol/L Arterial Blood Oxygen Saturation 90.0 90-95 % Arterial Blood Base Excess 5.0 -9-1.8 mEq/L Arterial Blood Gas Delivery 5 L [place] Test POS POS Lactic Acid Level 2.7 0.4-2.0 mmol/L Microbiology Results 04/19/17 Blood Culture, Received Pending 04/19/17 Blood Culture, Received Pending 04/19/17 MRSA DNA Surveillance Screen - Final, Complete Specimen Negative for MRSA by DNA Probe Diagnostic Radiology CHEST ONE VIEW PORTABLE CLINICAL HISTORY: Shortness of breath. COMPARISON STUDY: No previous studies for comparison. FINDINGS: There is no pneumothorax. Mild elevation of the right hemidiaphragm is noted. No pleural effusion is noted. Extensive bilateral airspace opacities are present. Cardiac size is within normal limits. No cavitation is identified. IMPRESSION: Extensive bilateral airspace opacities. Bilateral pneumonia is favored. However, pulmonary edema or hemorrhage could appear similar. Metastatic disease is also within the differential although is considered less likely. Radiographic follow-up is recommended to ensure resolution. CT OF THE CHEST WITHOUT IV CONTRAST CLINICAL HISTORY: Shortness of breath. Pneumonia. COMPARISON STUDY: Chest radiograph April 19, 2017. CT DOSE: 990.86 mGy.cm TECHNIQUE: Axial images of the chest were obtained without IV contrast. Images were reviewed in the axial, sagittal, and coronal planes. IV contrast was not administered for this examination. A dose lowering technique was utilized adhering to the principles of ALARA. FINDINGS: A few prominent mediastinal lymph nodes are present. The size of the heart is normal. There is no pericardial effusion. A small hiatal hernia is noted. A mildly enlarged distal paraesophageal lymph node is noted. There are innumerable nodules throughout the lungs, the largest of which is a 2.2 cm left lower lobe nodule. The nodules are confluent. In addition, there is possible superimposed airspace opacity within the lungs. There is no cavitation. There is no pneumothorax or pleural effusion. Central airways are patent. No suspicious osseous lesions are identified within the bony thorax. A tracheal diverticulum along the right aspect of the trachea at the level of the thoracic inlet is incidentally noted. Visualized portions of the upper abdomen reveal a possible hypodense hepatic lesions, including a 3 cm subcapsular right hepatic lobe lesion and additional 3.7 cm right hepatic dome lesion. There are also several nonspecific upper abdominal soft tissue nodules that measure up to 1.2 cm. IMPRESSION: 1. Innumerable nodules throughout the lungs. Although nonspecific, extensive metastatic disease is favored. Metastatic melanoma could have this imaging appearance. Findings discussed with Dr. Lantigua at time of dictation. 2. Upper lobe predominant airspace opacity within the lungs which could reflect superimposed pneumonia. 3. Possible hypodense hepatic lesions which raise the possibility of metastatic disease. A contrast-enhanced CT of the abdomen and pelvis could be obtained. 4. Multiple small indeterminate but suspicious upper abdominal nodules/implants which favor metastatic disease. CT ANGIOGRAPHY OF THE CHEST, PULMONARY EMBOLUS PROTOCOL CLINICAL HISTORY: Bilateral airspace opacities. Acute respiratory failure. COMPARISON STUDY: Chest radiograph and chest CT performed earlier today. TECHNIQUE: Following IV administration of 119 mL of Optiray-320, helical axial images of the chest were obtained utilizing the pulmonary embolus protocol. Maximal intensity projections and sagittal and coronal reformats were viewed on an independent 3D workstation. IV contrast was administered without complication. A dose lowering technique was utilized adhering to the principles of ALARA. FINDINGS: No pulmonary emboli are identified although the segmental and subsegmental pulmonary arteries are suboptimally assessed due to respiratory motion. There are innumerable nodules within the lungs, the largest of which is a 2.2 cm left lower lobe nodule. In addition, there is apparent superimposed upper lobe airspace opacity. There is no cavitation. No pneumothorax or pleural effusion is present. Note is made of an enlarged posterior left hilar lymph node that measures 1.7 cm. A possible right anterior chest wall implant is noted. A 6 mm subcutaneous nodule of the left aspect of the back is noted. Multiple hepatic metastases and upper abdominal implants are better depicted on the abdominal CT. There are no suspicious osseous lesions. IMPRESSION: 1. No pulmonary emboli identified although segmental and subsegmental pulmonary arteries suboptimally assessed due to respiratory motion. 2. Innumerable pulmonary nodule is consistent with extensive metastatic disease. 3. Upper lobe predominant airspace opacity within the lungs which could reflect superimposed pneumonia. 4. Mild mediastinal lymphadenopathy and multiple soft tissue implants. This is consistent with metastatic disease and this distribution raises the possibility of metastatic melanoma. CT OF THE ABDOMEN AND PELVIS WITH CONTRAST CLINICAL HISTORY: Abnormal chest CT. COMPARISON STUDY: None. TECHNIQUE: Following IV administration of 119 mL of Optiray-320, axial images of the abdomen and pelvis were obtained from the lung bases to the proximal femurs. Images were reviewed in the axial, sagittal, and coronal planes. IV contrast was administered without complication. A dose lowering technique was utilized adhering to the principles of ALARA. CT DOSE: 1262.84 mGy.cm FINDINGS: The chest will be reported separately. However, innumerable nodules are noted within the lungs. There are innumerable bilobar hepatic metastases, including a 3.2 cm right hepatic dome lesion and a 2.9 cm lateral segment lesion. There is a suspected 1 cm splenic lesion. The adrenal glands and pancreas are unremarkable. A few subcentimeter renal lesions likely reflect cysts. There is no evidence for a bowel reduction. No pneumatosis, free air or portal venous gas is present. There are numerous implants throughout the abdomen and pelvis including multiple enhancing intramuscular lesions. Specifically, there is a 1.1 cm lesion within the left paraspinal musculature at the L3 level as well as enhancing lesions within the left abductor musculature and left proximal thigh musculature as well as the lateral aspect of the left gluteus marian. A small implant is noted within the right gluteal musculature. The prostate is surgically absent. There are fat-containing bilateral inguinal hernias. Multiple nodules along the colon are noted, including a 2.9 x 1.1 cm nodule posterior to the mid descending colon. Major vasculature of the abdomen and pelvis is patent. A few subtle lucencies within the skeletal structures are indeterminate. IMPRESSION: Findings consistent with extensive metastatic disease with innumerable pulmonary and hepatic metastases and numerous soft tissue implants, including intramuscular metastases. This distribution raises the possibility of metastatic melanoma. Additional sites of metastatic disease, as detailed above. Discussed with Dr. Lantigua at time of dictation. EKG Normal sinus rhythm ST & T wave abnormality Impression Assessment and Plan This is a 76 year old male with a PMH of myasthenia gravis on long-term pyridostigmine, azathioprine, and prednisone; hx. of hypothyroidism, HTN, melanoma, polycythemia vera - presents with a four day history of shortness of breath and dyspnea on exertion. Acute Hypoxic Respiratory Failure patient presented with O2 in the upper 70s, air hunger, dyspnea with exertion improved with O2 via NC; but distress with exertion still present now on bipap likely multifactorial, b/l PNA, metastatic lung disease pulmonary consulted, broad spectrum abx., hem-onc for eval of metastatic disease hx. of Myasthenia - continue Mestinon and Azathioprine; prednisone changed to Solu-Cortef Metastatic Disease likely metastatic melanoma patient was seen in December by dermatology - at that time, no recurrence of melanoma was noted CT of the chest/abdomen/pelvis suggest metastatic disease to the lung and liver Hem/Onc consulted may need bronchoscopy + lavage started on Lovenox 1mg/kg q12 for prophylaxis Bilateral Pneumonia patient on broad spectrum abx: Unasyn + Levaquin for now started on Tamiflu prophylaxis as well as per procurement forester team continue nebulizers and Mucinex Lactic Acidosis a combination of pneumonia and hypoxia being given IVFs (Normosol at 100mL/hr), lactic acid trending down from 3.9 to 2.7 now will obtain lactic acid q4 Myasthenia Gravis no muscle weakness detected at this time no aspiration as per patient, seems to be swallowing okay will cover for anaerobes (Unasyn) continue Mestinon, Azathioprine and started on Solu-Cortef may need neurology HTN continue amlodipine Hypothyroidism check TSH continue Synthroid DVT ppx Lovenox FULL CODE Advanced Directives Existing Living Will: No Existing Power of Nozzle Operator: No VTE Prophylaxis VTE Risk Assessment Done? Y/N: Yes Risk Level: Moderate
[2017-04-19] MEDS: AMPICILLIN/SULBACTAM SOD INJ 3,000 MG in SODIUM CHLORIDE 0.9% 100ML 100 ML IV SCH (20:39)
[2017-04-19] MEDS: ENOXAPARIN 100 MG/1ML SYR SQ SCH (20:40)
[2017-04-19] MEDS: PYRIDOSTIGMINE BROMIDE 60 MG TAB PO SCH (20:40)
[2017-04-19] MEDS ORDERED: GUAIFENESIN 600 MG TABCR PO SCH (21:00)
[2017-04-20] VITALS (19 sets, daily range): BP systolic 122–180; BP diastolic 68–99; PULSE 56–94; TEMP 36.4–37.3; O2SAT 90–96
[2017-04-20] MEDS: HYDROCORTISONE IV 50 MG in SYRINGE 0 ML IV SCH ×2 (02:23→12:55)
[2017-04-20] MEDS: AMPICILLIN/SULBACTAM SOD INJ 3,000 MG in SODIUM CHLORIDE 0.9% 100ML 100 ML IV SCH (02:23)
[2017-04-20 04:02] LABS: BASO % 0.1 %; BASO ABS # 0.01 K/uL (0-0.2); IG# 0.02 K/uL (0.00-0.02); LYMPH % 2.9 %; LYMPH ABS # 0.31 K/uL (1.2-3.4); MEAN CELL VOLUME 80.7 fL (80-100); MEAN CORPUSCULAR HEMOGLOBIN 24.8 pg (25-34); MEAN CORPUSCULAR HGB CONC 30.8 g/dl (32-36); MONO % 3.2 %; MONO ABS # 0.35 K/uL (0.11-0.59); NEUT % 93.6 %; NEUT ABS # 10.12 K/uL (1.4-6.5); NUCLEATED RED BLOOD CELL ABS 0.02 K/uL (0-0); PLATELET COUNT 370 K/uL (130-400); RED CELL DISTRIBUTION WIDTH CV 17.5 % (11.5-14.5); RED CELL DISTRIBUTION WIDTH SD 50.4 fL (36.4-46.3); WHITE BLOOD COUNT 10.81 K/uL (4.8-10.8)
[2017-04-20 04:26] LABS: CREATININE 0.94 mg/dl (0.60-1.40); POTASSIUM 3.5 mmol/L (3.5-5.1)
[2017-04-20 04:41] LABS: PHOSPHORUS 3.4 mg/dl (2.5-4.9)
[2017-04-20] MEDS: NORMOSOL R 1,000 ML IV SCH (04:51)
[2017-04-20] MEDS ORDERED: NURSING VERBAL MED ORDER ONE ×2 (05:30)
[2017-04-20] MEDS ORDERED: MAGNESIUM SULFATE 1GM / D5W 1 GM in PREMIXED IN D5W 100 ML IV ONE (05:45)
[2017-04-20] MEDS: POTASSIUM CHLORIDE 10 MEQ TABCR PO SCH ×2 (06:34→12:55)
[2017-04-20] MEDS: LEVOTHYROXINE 50 MCG TAB PO SCH (06:34)
[2017-04-20] MEDS ORDERED: PIPERACILL/TAZOBAC IV 3.375 GM in DEXTROSE 5% 100ML 100 ML IV ONE (06:45)
[2017-04-20] MEDS ORDERED: PIPERACILL/TAZOBAC CONSULT ACTIVE PRN (06:45)
--- NOTE | 2017-04-20 07:39 | DIAGNOSTIC IMAGING REPORT ---
CHEST ONE VIEW PORTABLE HISTORY: 76 years-old Male hypoxia follow-up study in a patient with hypoxia COMPARISON: CTA of the chest 04/19/2017, chest radiograph 04/19/2017 TECHNIQUE: Portable AP view of the chest FINDINGS: Cardiac silhouette is mildly enlarged. The lungs are hypoinflated with bronchovascular crowding. There is no pneumothorax or large pleural effusion. No definite overt pulmonary edema. Alveolar opacities with air bronchograms of the left upper lobe appear slightly worsened. Innumerable pulmonary nodules redemonstrated. Bones appear grossly intact. IMPRESSION: 1. Mildly worsened airspace opacities of the left upper lobe suggest ongoing pneumonia. 2. Innumerable multilobar multifocal nodules of the bilateral lungs redemonstrated suggesting diffuse pulmonary metastasis. The above report was generated using voice recognition software. It may contain grammatical, syntax or spelling errors. Electronically signed by: Fidel Parkinson M.D. 04/20/2017 7:38 AM Dictated Date/Time: 04/20/2017 7:33 AM
[2017-04-20] MEDS: ALBUT/IPRATROP 3MG/0.5MG NEB 3 ML VIAL INH SCH ×4 (07:49→19:56)
[2017-04-20] MEDS: ASPIRIN 81 MG ECTAB PO SCH (07:51)
[2017-04-20] MEDS: ENOXAPARIN 100 MG/1ML SYR SQ SCH ×2 (07:51→20:40)
[2017-04-20] MEDS: AZATHIOPRINE 50 MG TAB PO SCH (07:52)
[2017-04-20] MEDS: PYRIDOSTIGMINE BROMIDE 60 MG TAB PO SCH ×4 (07:52→20:40)
[2017-04-20] MEDS: AMLODIPINE BESYLATE 5 MG TAB PO SCH (07:53)
[2017-04-20] MEDS: PANTOprazole SOD 40 MG TAB PO SCH (07:53)
[2017-04-20] MEDS ORDERED: LEVOFLOXACIN / D5W 750 MG in PREMIXED IN D5W 150 ML IV SCH (09:00)
--- NOTE | 2017-04-20 09:13 | Critical Care Progress Note ---
Critical Care Progress Note Date of Service Apr 20, 2017. ICU Day ICU Day Number: [address] Lantigua Subjective Patient resting comfortably in bed this morning with no acute complaints overnight. Denies any fevers, chills, chest pain, worsening shortness of breath , abdominal pain, or headaches. Objective General Appearance: WD/WN, uncomfortable Head: normocephalic, atraumatic Neck: trachea midline, supple Respiratory: Currently on Oxymask 8L, Bilateral crackles, no increased work of breathing or respiratory distress Cardiovasular: regular rate/rhythm, normal S1S2, no M/G/R Abdomen: non tender, normal bowel sounds Neuro: alert, oriented x 3 Current SOFA Score SOFA Score Response (Comments) Value Platelets (x10) > 150 0 Bilirubin (mg/dL) < 1.2 0 Marisela Coma Score 15 0 Level of Hypotension No Hypotension 0 Creatinine (mg/dL) < 1.2 0 Total 0 Assessment & Plan Patient is a 76 year old male that presents with acute hypoxic respiratory failure 2/2 bilateral pneumonia superimposed on presumed metastatic melanoma ( new diagnosis on this admission) Neuro - [facility] ICU- Negative - Alert and Oriented - Continue Azathioprine 50mg daily for MG - Continue Pyridostigmine Bromine 60mg QID home medication - 120mg Solumedrol IV in ED - 50mg Hydrocortisone q8h IV - Consult Neurology Respiratory: Hypoxemic respiratory failure requiring supplemental O2 - Worsening pneumonia on imaging this morning and patient requiring 8L oxymask this morning (6L NC yesterday) - CXR 12/: Mildly worsened airspace opacities of the left upper lobe suggest ongoing pneumonia. - Chest CT: 1) Innumerable nodules throughout the lungs. Although nonspecific, extensive metastatic disease is favored. Metastatic melanoma could have this imaging appearance. Findings discussed with Dr. Lantigua at time of dictation. 2) Upper lobe predominant airspace opacity within the lungs which could reflect superimposed pneumonia. 3) Possible hypodense hepatic lesions which raise the possibility of metastatic disease. A contrast-enhanced CT of the abdomen and pelvis could be obtained. 4) Multiple small indeterminate but suspicious upper abdominal nodules/implants which favor metastatic disease. - ABG 7.45/ 43/ 62/ 30 - 120mg Solumedrol in ED, 50mg Hydrocortisone q8h IV - Vancomycin, Zosyn, and Levaquin broad spectrum coverage - Tamiflu Prophylaxis - Currently on oxygen to maintain O2 sats > 90% - CPAP at night (COPD) - Lactic Acid remains elevated (3.5 on am labs, 3.5 on admission) - Influenza A & B negative - Mycoplasma pending - Procalcitonin Pending - Pulmonary following - Patient full code and consent obtained for Bronchoscopy, A-line, Central Line , Intubation, and Blood Transfusions CV: - Hemodynamically stable - Continue home Norvasc 5mg daily - Holding home HCTZ due to hypokalemia - Normosol 100cc/hr - Aspirin 81mg daily GI: - CT Abd/ Pelvis 04/20: Findings consistent with extensive metastatic disease with innumerable pulmonary and hepatic metastases and numerous soft tissue implants, including intramuscular metastases. This distribution raises the possibility of metastatic melanoma. - Transaminitis with concerning metastasis to the liver - Hepatitis panel - Protonix 40mg PO Daily - AHA Diet Renal: - Hypokalemia resolved - 3.5 --> Additional 40 mEq 20mEq q4h x 2 doses - Holding home HCTZ - 40mEq of KCl in the ED - Daily BMP Endo: - Continue home Levothyroxine 50 mcg - Monitor blood sugars as patient on high dose steroid Heme/ ID: - Leukocytosis improving- 13.75 --> 10.81 - Bilateral Airspace Opacities on CXR - Broad Spectrum Antibiotic coverage + Tamiflu prophylaxis - H/H: 13.7/44.1 -->12.0/33.9 - Thrombocytosis- Platelets 516 DVT Prophylaxis: - Lovenox GI Prophylaxis: - Protonix Code Status: - Full Resuscitation Resident Physician Supervision Note: Dr. Griffith was resident physician during care of patient. I separately evaluated patient and did history and exam. I discussed the case with the resident and generally agree with the findings and plan. Patient tolerated CPAP overnight, no significant change and oxygen requirement, still gets extremely short of breath with minimal exertion and significant oxygen desaturation. I discussed the findings with the patient's and son today. We've had discussions about next steps, patient will likely need tissue biopsy which would likely occur Friday. Patient remains critically ill due to hypoxemic respiratory failure I have personally spent 40 minutes of critical care time in the direct management of this patient. This is a life/limb threatening event. This includes time spent evaluating patient, direct bedside care, chart review, placing orders, interpretation of diagnostic studies, discussion with consultants, patient, and family members, as well as other required patient management activities. This time is exclusive of all separately billable procedures, and teaching time and separate from and in addition to any other critical care service time. Documented By: Roldan Lantigua DO Consults & Procedures Consultants: Dr. Hodges Procedures: None Data Medications: Current Inpatient Medications Medications (Trade) Dose Ordered Sig/Kevin Route Start Time Stop Time Status Last Admin Dose Admin Acetaminophen (Tylenol Tab) 650 mg Q4H PRN PO 04/19/17 14:30 05/19/17 14:29 Ondansetron HCl (Zofran Inj) 4 mg Q6H PRN IV 04/19/17 14:30 05/19/17 14:29 Amlodipine Besylate (Norvasc Tab) 5 mg DAILY PO 04/20/17 09:00 05/20/17 08:59 04/20/17 07:53 5 MG Aspirin (Ecotrin Tab) 81 mg DAILY PO 04/20/17 09:00 05/20/17 08:59 04/20/17 07:51 81 MG Azathioprine (Imuran Tab) 50 mg DAILY PO 04/20/17 09:00 05/20/17 08:59 04/20/17 07:52 50 MG Levothyroxine Sodium (Synthroid Tab) 50 mcg DAILYBB PO 04/20/17 06:00 05/20/17 06:59 04/20/17 06:34 50 MCG Pyridostigmine [place] ([place] Tab) 60 mg QID PO 04/19/17 21:00 05/19/17 20:59 04/20/17 07:52 60 MG Pantoprazole Sodium (Protonix Tab) 40 mg DAILY PO 04/20/17 09:00 05/20/17 08:59 04/20/17 07:53 40 MG Levofloxacin 750 mg/Prmx 150 ml @ 100 mls/hr Q24H IV 04/20/17 09:00 04/27/17 08:59 04/20/17 07:56 100 MLS/HR Albuterol/ Ipratropium (Duoneb) 3 ml QIDR INH 04/19/17 20:00 05/19/17 19:59 04/20/17 07:49 3 ML Hydrocortisone Sodium Succinate 50 mg/Syringe 1 ml @ 4 mls/min Q8H IV 04/19/17 18:00 04/20/17 10:01 04/20/17 02:23 4 MLS/MIN Levalbuterol (Xopenex 0.63 Mg/ 3 Ml Neb) 0.63 mg Q6H PRN INH 04/19/17 16:30 05/19/17 16:29 04/19/17 17:16 0.63 MG Glucose (Glucose 40% Gel) 15-30 GRAMS 15 GRAMS... UD PRN PO 04/19/17 17:15 05/19/17 17:14 Glucose (Glucose Chew Tab) 4-8 Tablets 4 Tabl... UD PRN PO 04/19/17 17:15 05/19/17 17:14 Dextrose (Dextrose 50% 50ML Syringe) 25-50ML OF 50% DW IV FOR... UD PRN IV 04/19/17 17:15 05/19/17 17:14 Glucagon (Glucagon Inj) 1 mg UD PRN SQ 04/19/17 17:15 05/19/17 17:14 Ioversol (Optiray 320) 100 ml UD PRN IV 04/19/17 17:45 04/23/17 17:44 Enoxaparin Sodium (Lovenox Inj) 100 mg Q12@0800,2000 SQ 04/19/17 20:00 05/19/17 19:59 04/20/17 07:51 100 MG Miscellaneous Information (Icu Protocol For Hyperglycemia) 1 ea PRN PRN N/A 04/19/17 19:45 04/21/17 19:44 Miscellaneous Information ( Icu Electrolyte Replacement Protocol) 1 ea per protocol PRN N/A 04/19/17 19:45 04/26/17 19:44 Potassium Chloride (Klor-Con M10) 20 meq Q4H PO 04/20/17 06:00 04/20/17 10:01 04/20/17 06:34 20 MEQ Piperacillin Sod/ Tazobactam Sod 3.375 gm/Dextrose 115 ml @ 28.75 mls/ hr Q8H IV 04/20/17 12:00 04/21/17 19:59 Piperacillin Sod/ Tazobactam Sod (Consult) 1 ea UD PRN N/A 04/20/17 06:45 05/20/17 06:44 Vital Signs: Date Time Temp Pulse Resp B/P (MAP) Pulse Ox O2 Delivery O2 Flow Rate FiO2 04/20/17 07:49 84 20 92 Mask 8.0 04/20/17 06:00 59 16 122/68 (86) 91 CPAP 50 04/20/17 05:29 59 92 50 04/20/17 04:00 CPAP 50 04/20/17 04:00 60 15 146/80 (102) 91 CPAP 50 04/20/17 02:10 56 90 50 04/20/17 02:00 58 17 122/71 (88) 90 CPAP 50 04/20/17 00:01 37.3 61 15 130/73 (92) 91 CPAP 50 04/19/17 23:59 CPAP 50 04/19/17 22:31 96 91 50 04/19/17 22:00 63 16 136/83 (100) 87 CPAP 40 04/19/17 20:00 37.2 84 16 136/90 (105) 90 CPAP 40 04/19/17 20:00 CPAP 40 04/19/17 19:36 96 94 40 04/19/17 18:57 75 22 90 Nasal Cannula 6.0 04/19/17 17:18 82 97 04/19/17 17:17 82 28 97 BiPAP/CPAP 50 04/19/17 17:05 84 22 157/93 (114) 97 CPAP 04/19/17 16:43 70 31 151/89 92 04/19/17 16:15 72 23 91 04/19/17 16:01 139/81 04/19/17 16:00 73 21 90 Nasal Cannula 6.0 Humidified Oxygen 04/19/17 15:45 78 32 91 Nasal Cannula 6.0 Humidified Oxygen 04/19/17 15:30 72 28 146/80 89 04/19/17 15:15 72 41 88 04/19/17 15:00 70 31 152/77 89 Nasal Cannula 6.0 Humidified Oxygen 04/19/17 14:36 68 32 136/78 91 Nasal Cannula 6.0 Humidified Oxygen 04/19/17 13:35 73 37 92 Nasal Cannula 6.0 04/19/17 13:31 92 Nasal Cannula 6.0 04/19/17 13:31 135/102 04/19/17 13:20 72 26 88 04/19/17 13:05 74 29 83 04/19/17 13:01 140/77 04/19/17 12:50 81 27 96 04/19/17 12:35 74 15 95 04/19/17 12:30 150/90 04/19/17 12:20 80 19 93 04/19/17 12:12 79 04/19/17 12:10 37.5 77 14 135/75 79 Room Air 04/19/17 12:06 135/75 04/19/17 11:58 79 Room Air Laboratory Results: Last 24 Hours Test 04/19/17 12:10 04/19/17 13:11 04/19/17 13:45 04/19/17 14:20 White Blood Count 13.75 K/uL Red Blood Count 5.48 M/uL Hemoglobin 13.7 g/dL Hematocrit 44.1 % Mean Corpuscular Volume 80.5 fL Mean Corpuscular Hemoglobin 25.0 pg Mean Corpuscular Hemoglobin Concent 31.1 g/dl Platelet Count 516 K/uL Mean Platelet Volume 9.7 fL Neutrophils (%) (Auto) 90.6 % Lymphocytes (%) (Auto) 4.2 % Monocytes (%) (Auto) 4.5 % Eosinophils (%) (Auto) 0.1 % Basophils (%) (Auto) 0.2 % Neutrophils # (Auto) 12.45 K/uL Lymphocytes # (Auto) 0.58 K/uL Monocytes # (Auto) 0.62 K/uL Eosinophils # (Auto) 0.02 K/uL Basophils # (Auto) 0.03 K/uL RDW Standard Deviation 50.2 fL RDW Coefficient of Variation 17.4 % Immature Granulocyte % (Auto) 0.4 % Immature Granulocyte # (Auto) 0.05 K/uL Prothrombin Time 10.7 SECONDS Prothromb Time International Ratio 1.0 Sodium Level 140 mmol/L Potassium Level 3.0 mmol/L Chloride Level 98 mmol/L Carbon Dioxide Level 33 mmol/L Anion Gap 8.0 mmol/L Blood Urea Nitrogen 17 mg/dl Creatinine 1.10 mg/dl Est Creatinine Clear Calc Drug Dose 64.7 ml/min Estimated GFR () 75.7 Estimated GFR (Non- 65.3 BUN/Creatinine Ratio 15.4 Random Glucose 115 mg/dl Calcium Level 9.0 mg/dl Magnesium Level 1.8 mg/dl Troponin I 0.045 ng/ml Procalcitonin 0.31 ng/ml Lactic Acid Level 3.9 mmol/L Influenza Type A (RT-PCR) Neg for Influ A Influenza Type B (RT-PCR) Neg for Influ B Total Bilirubin 1.1 mg/dl Direct Bilirubin 0.4 mg/dl Aspartate Amino Transf (AST/SGOT) 128 U/L Alanine Aminotransferase (ALT/SGPT) 89 U/L Alkaline Phosphatase 165 U/L Pro-B-Type Natriuretic Peptide 138 pg/ml Total Protein 6.5 gm/dl Albumin 2.8 gm/dl Test 04/19/17 15:49 04/19/17 20:09 04/19/17 20:56 04/19/17 22:37 Arterial Blood pH 7.45 Arterial Blood Partial Pressure CO2 43 mmHg Arterial Blood Partial Pressure O2 62 mm/Hg Arterial Blood HCO3 30 mmol/L Arterial Blood Oxygen Saturation 90.0 % Arterial Blood Base Excess 5.0 mEq/L Arterial Blood Gas Delivery 5 L [place] Test POS Lactic Acid Level 2.7 mmol/L 3.7 mmol/L Urine Color YELLOW Urine Appearance CLEAR Urine pH 5.5 Urine Specific [place] > 1.045 Urine Protein NEG Urine Glucose (UA) NEG Urine Ketones TRACE Urine Occult Blood NEG Urine Nitrite NEG Urine Bilirubin NEG Urine Urobilinogen NEG Urine Leukocyte Esterase NEG Bedside Glucose 146 mg/dl Test 04/19/17 23:40 04/20/17 03:56 04/20/17 07:52 Lactic Acid Level 2.7 mmol/L 2.6 mmol/L 3.5 mmol/L White Blood Count 10.81 K/uL Red Blood Count 4.83 M/uL Hemoglobin 12.0 g/dL Hematocrit 39.0 % Mean Corpuscular Volume 80.7 fL Mean Corpuscular Hemoglobin 24.8 pg Mean Corpuscular Hemoglobin Concent 30.8 g/dl Platelet Count 370 K/uL Mean Platelet Volume 9.0 fL Neutrophils (%) (Auto) 93.6 % Lymphocytes (%) (Auto) 2.9 % Monocytes (%) (Auto) 3.2 % Eosinophils (%) (Auto) 0.0 % Basophils (%) (Auto) 0.1 % Neutrophils # (Auto) 10.12 K/uL Lymphocytes # (Auto) 0.31 K/uL Monocytes # (Auto) 0.35 K/uL Eosinophils # (Auto) 0.00 K/uL Basophils # (Auto) 0.01 K/uL RDW Standard Deviation 50.4 fL RDW Coefficient of Variation 17.5 % Immature Granulocyte % (Auto) 0.2 % Immature Granulocyte # (Auto) 0.02 K/uL Nucleated RBC Absolute Count (auto) 0.02 K/uL Nucleated Red Blood Cells % 0.2 % Sodium Level 139 mmol/L Potassium Level 3.5 mmol/L Chloride Level 102 mmol/L Carbon Dioxide Level 33 mmol/L Anion Gap 4.0 mmol/L Blood Urea Nitrogen 16 mg/dl Creatinine 0.94 mg/dl Est Creatinine Clear Calc Drug Dose 75.9 ml/min Estimated GFR () 91.6 Estimated GFR (Non- 79.0 BUN/Creatinine Ratio 17.1 Random Glucose 130 mg/dl Calcium Level 8.0 mg/dl Phosphorus Level 3.4 mg/dl Magnesium Level 1.9 mg/dl Thyroid Stimulating Hormone (TSH) 0.727 uIu/ml Resident Tracking Resident Involvement: Resident Care Provided Care Provided: Adult Hospital Medicine
[2017-04-20 09:22] LABS: HEP C IGG 13 YRS+OLDER_RFLX NEG (NEG)
--- NOTE | 2017-04-20 12:47 | Pulmonology Progress Note ---
Pulmonary Progress Note Date of Service Apr 20, 2017. Attending Dr. Hodges Subjective Patient seen and examined in ICU. Family at bedside. He states that he is feeling a little bit better from a respiratory standpoint. Still remains quite dyspneic with minimal movement. Still remains hypoxic on 10 L facemask. Objective Vital signs reviewed. MAXIMUM TEMPERATURE 37.3, BP 122/68-146/80, pulse 56-94 , respiratory rate 15-22, saturating 90-92% on 8-10 L nasal cannula. Currently 677 L positive since admission. Gen.: Awake alert oriented 3 CVS: S1-S2 regular rate and rhythm Lungs: Crackles bilaterally, tachypnea Abdomen: Soft, nontender, nondistended, Bowel sounds positive Extremity: No cyanosis, no clubbing, no edema bilaterally Labs reviewed. White blood cell count 13 down to 10. Hemoglobin 13 down to 12. Platelets 516 down to 370. Chemistry significant for a potassium 3.5, carbon dioxide level of 33, creatinine 0.94. Lactate: 3.9-2.7-3.7-2.7-2.6-3.5 Blood cultures: Pending Sputum culture: pending ABG pH 7.45/43/62/30 saturating 90% on [address] chest without contrast 1. Innumerable nodules throughout the lungs. Although nonspecific, extensive metastatic disease is favored. Metastatic melanoma could have this imaging appearance. 2. Upper lobe predominant airspace opacity within the lungs which could reflect superimposed pneumonia. 3. Possible hypodense hepatic lesions which raise the possibility of metastatic disease. 4. Multiple small indeterminate but suspicious upper abdominal nodules/implants which favor metastatic disease. CT CHEST with CONTRAST 1. No pulmonary emboli identified although segmental and subsegmental pulmonary arteries suboptimally assessed due to respiratory motion. 2. Innumerable pulmonary nodule is consistent with extensive metastatic disease. 3. Upper lobe predominant airspace opacity within the lungs which could reflect superimposed pneumonia. 4. Mild mediastinal lymphadenopathy and multiple soft tissue implants. This is consistent with metastatic disease and this distribution raises the possibility of metastatic melanoma. CT OF THE ABDOMEN AND PELVIS WITH CONTRAST CLINICAL HISTORY: Abnormal chest CT. COMPARISON STUDY: None. TECHNIQUE: Following IV administration of 119 mL of Optiray-320, axial images of the abdomen and pelvis were obtained from the lung bases to the proximal femurs. Images were reviewed in the axial, sagittal, and coronal planes. IV contrast was administered without complication. A dose lowering technique was utilized adhering to the principles of ALARA. CT DOSE: 1262.84 mGy.cm FINDINGS: The chest will be reported separately. However, innumerable nodules are noted within the lungs. There are innumerable bilobar hepatic metastases, including a 3.2 cm right hepatic dome lesion and a 2.9 cm lateral segment lesion. There is a suspected 1 cm splenic lesion. The adrenal glands and pancreas are unremarkable. A few subcentimeter renal lesions likely reflect cysts. There is no evidence for a bowel reduction. No pneumatosis, free air or portal venous gas is present. There are numerous implants throughout the abdomen and pelvis including multiple enhancing intramuscular lesions. Specifically, there is a 1.1 cm lesion within the left paraspinal musculature at the L3 level as well as enhancing lesions within the left abductor musculature and left proximal thigh musculature as well as the lateral aspect of the left gluteus marian. A small implant is noted within the right gluteal musculature. The prostate is surgically absent. There are fat-containing bilateral inguinal hernias. Multiple nodules along the colon are noted, including a 2.9 x 1.1 cm nodule posterior to the mid descending colon. Major vasculature of the abdomen and pelvis is patent. A few subtle lucencies within the skeletal structures are indeterminate. IMPRESSION: Findings consistent with extensive metastatic disease with innumerable pulmonary and hepatic metastases and numerous soft tissue implants, including intramuscular metastases. This distribution raises the possibility of metastatic melanoma. Medication reviewed. 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 Shaikh presented with acute hypoxic respiratory failure, initially thought to be secondary to multifocal pneumonia. However upon further workup and CT imaging revealed likely metastatic disease to the lung and liver. Patient does have history of melanoma and prostate cancer, however tissue biopsy will be ultimately needed for diagnosis. At the current time, I recommend that patient continue with either high flow nasal cannula or BiPAP. Current nasal canula is not sufficient at this time. If he should further decompensate intubation may be warranted. I would continue to treat him for possible superimposed pneumonia with broad- spectrum antibiotics. Follow-up sputum culture. Due to his tenuous respiratory status and I do not think that we will be safe to proceed with bronchoscopy at this time. Patient does have other lesions elsewhere that can possibly be biopsied without respiratory compromise. Can obtain an MRI of the brain to evaluate for metastasis. Hematology/oncology has been consulted and we await their recommendations. He was myasthenia gravis management per primary team. Continue with Lovenox for DVT prophylaxis. I discussed my recommendations with the patient and family who are at bedside as well as , Dr. Lantigua. I will be off of pulmonary service tomorrow, however I will signoff case today either Dr. Lyman or Dr. Huffman who will be taking over service in my stead. Data Medications: Current Inpatient Medications Medications (Trade) Dose Ordered Sig/Kevin Route Start Time Stop Time Status Last Admin Dose Admin Acetaminophen (Tylenol Tab) 650 mg Q4H PRN PO 04/19/17 14:30 05/19/17 14:29 Ondansetron HCl (Zofran Inj) 4 mg Q6H PRN IV 04/19/17 14:30 05/19/17 14:29 Amlodipine Besylate (Norvasc Tab) 5 mg DAILY PO 04/20/17 09:00 05/20/17 08:59 04/20/17 07:53 5 MG Aspirin (Ecotrin Tab) 81 mg DAILY PO 04/20/17 09:00 05/20/17 08:59 04/20/17 07:51 81 MG Azathioprine (Imuran Tab) 50 mg DAILY PO 04/20/17 09:00 05/20/17 08:59 04/20/17 07:52 50 MG Levothyroxine Sodium (Synthroid Tab) 50 mcg DAILYBB PO 04/20/17 06:00 05/20/17 06:59 04/20/17 06:34 50 MCG Pyridostigmine [place] (Mestinon Tab) 60 mg QID PO 04/19/17 21:00 05/19/17 20:59 04/20/17 07:52 60 MG Pantoprazole Sodium (Protonix Tab) 40 mg DAILY PO 04/20/17 09:00 05/20/17 08:59 04/20/17 07:53 40 MG Levofloxacin 750 mg/Prmx 150 ml @ 100 mls/hr Q24H IV 04/20/17 09:00 04/27/17 08:59 04/20/17 07:56 100 MLS/HR Albuterol/ Ipratropium (Duoneb) 3 ml QIDR INH 04/19/17 20:00 05/19/17 19:59 04/20/17 12:09 3 ML Levalbuterol (Xopenex 0.63 Mg/ 3 Ml Neb) 0.63 mg Q6H PRN INH 04/19/17 16:30 05/19/17 16:29 04/19/17 17:16 0.63 MG Glucose (Glucose 40% Gel) 15-30 GRAMS 15 GRAMS... UD PRN PO 04/19/17 17:15 05/19/17 17:14 Glucose (Glucose Chew Tab) 4-8 Tablets 4 Tabl... UD PRN PO 04/19/17 17:15 05/19/17 17:14 Dextrose (Dextrose 50% 50ML Syringe) 25-50ML OF 50% DW IV FOR... UD PRN IV 04/19/17 17:15 05/19/17 17:14 Glucagon (Glucagon Inj) 1 mg UD PRN SQ 04/19/17 17:15 05/19/17 17:14 Ioversol (Optiray 320) 100 ml UD PRN IV 04/19/17 17:45 04/23/17 17:44 Enoxaparin Sodium (Lovenox Inj) 100 mg Q12@0800,2000 SQ 04/19/17 20:00 05/19/17 19:59 04/20/17 07:51 100 MG Miscellaneous Information (I[facility] Protocol For Hyperglycemia) 1 ea PRN PRN N/A 04/19/17 19:45 04/21/17 19:44 Miscellaneous Information ( [facility] Electrolyte Replacement Protocol) 1 ea per protocol PRN N/A 04/19/17 19:45 04/26/17 19:44 Piperacillin Sod/ Tazobactam Sod 3.375 gm/Dextrose 115 ml @ 28.75 mls/ hr Q8H IV 04/20/17 12:00 04/21/17 19:59 Piperacillin Sod/ Tazobactam Sod (Consult) 1 ea UD PRN N/A 04/20/17 06:45 05/20/17 06:44 Vital Signs: Date Time Temp Pulse Resp B/P (MAP) Pulse Ox O2 Delivery O2 Flow Rate FiO2 04/20/17 12:09 88 20 91 Nasal Cannula 45.0 60 04/20/17 12:00 36.4 90 20 139/75 (96) 90 High Flow Oxygen 04/20/17 12:00 90 High Flow Oxygen 04/20/17 10:00 94 22 144/77 (99) 92 Oxymask 8.0 04/20/17 08:00 36.4 84 22 131/73 (92) 92 Oxymask 8.0 04/20/17 08:00 92 Oxymask 8.0 04/20/17 07:49 84 20 92 Mask 8.0 04/20/17 06:00 59 16 122/68 (86) 91 CPAP 50 04/20/17 05:29 59 92 50 04/20/17 04:00 CPAP 50 04/20/17 04:00 60 15 146/80 (102) 91 CPAP 50 04/20/17 02:10 56 90 50 04/20/17 02:00 58 17 122/71 (88) 90 CPAP 50 04/20/17 00:01 37.3 61 15 130/73 (92) 91 CPAP 50 04/19/17 23:59 CPAP 50 04/19/17 22:31 96 91 50 04/19/17 22:00 63 16 136/83 (100) 87 CPAP 40 04/19/17 20:00 37.2 84 16 136/90 (105) 90 CPAP 40 04/19/17 20:00 CPAP 40 04/19/17 19:36 96 94 40 04/19/17 18:57 75 22 90 Nasal Cannula 6.0 04/19/17 17:18 82 97 04/19/17 17:17 82 28 97 BiPAP/CPAP 50 04/19/17 17:05 84 22 157/93 (114) 97 CPAP 04/19/17 16:43 70 31 151/89 92 04/19/17 16:15 72 23 91 04/19/17 16:01 139/81 04/19/17 16:00 73 21 90 Nasal Cannula 6.0 Humidified Oxygen 04/19/17 15:45 78 32 91 Nasal Cannula 6.0 Humidified Oxygen 04/19/17 15:30 72 28 146/80 89 04/19/17 15:15 72 41 88 04/19/17 15:00 70 31 152/77 89 Nasal Cannula 6.0 Humidified Oxygen 04/19/17 14:36 68 32 136/78 91 Nasal Cannula 6.0 Humidified Oxygen 04/19/17 13:35 73 37 92 Nasal Cannula 6.0 04/19/17 13:31 92 Nasal Cannula 6.0 04/19/17 13:31 135/102 04/19/17 13:20 72 26 88 04/19/17 13:05 74 29 83 04/19/17 13:01 140/77 04/19/17 12:50 81 27 96 04/19/17 12:35 74 15 95 04/19/17 12:30 150/90 Laboratory Results: Last 24 Hours Test 04/19/17 13:11 04/19/17 13:45 04/19/17 14:20 04/19/17 15:49 Lactic Acid Level 3.9 mmol/L 2.7 mmol/L Influenza Type A (RT-PCR) Neg for Influ A Influenza Type B (RT-PCR) Neg for Influ B Total Bilirubin 1.1 mg/dl Direct Bilirubin 0.4 mg/dl Aspartate Amino Transf (AST/SGOT) 128 U/L Alanine Aminotransferase (ALT/SGPT) 89 U/L Alkaline Phosphatase 165 U/L Pro-B-Type Natriuretic Peptide 138 pg/ml Total Protein 6.5 gm/dl Albumin 2.8 gm/dl Arterial Blood pH 7.45 Arterial Blood Partial Pressure CO2 43 mmHg Arterial Blood Partial Pressure O2 62 mm/Hg Arterial Blood HCO3 30 mmol/L Arterial Blood Oxygen Saturation 90.0 % Arterial Blood Base Excess 5.0 mEq/L Arterial Blood Gas Delivery 5 L [place] Test POS Test 04/19/17 20:09 04/19/17 20:56 04/19/17 22:37 04/19/17 23:40 Lactic Acid Level 3.7 mmol/L 2.7 mmol/L Urine Color YELLOW Urine Appearance CLEAR Urine pH 5.5 Urine Specific [place] > 1.045 Urine Protein NEG Urine Glucose (UA) NEG Urine Ketones TRACE Urine Occult Blood NEG Urine Nitrite NEG Urine Bilirubin NEG Urine Urobilinogen NEG Urine Leukocyte Esterase NEG Bedside Glucose 146 mg/dl Test 04/20/17 03:56 04/20/17 07:52 04/20/17 11:54 White Blood Count 10.81 K/uL Red Blood Count 4.83 M/uL Hemoglobin 12.0 g/dL Hematocrit 39.0 % Mean Corpuscular Volume 80.7 fL Mean Corpuscular Hemoglobin 24.8 pg Mean Corpuscular Hemoglobin Concent 30.8 g/dl Platelet Count 370 K/uL Mean Platelet Volume 9.0 fL Neutrophils (%) (Auto) 93.6 % Lymphocytes (%) (Auto) 2.9 % Monocytes (%) (Auto) 3.2 % Eosinophils (%) (Auto) 0.0 % Basophils (%) (Auto) 0.1 % Neutrophils # (Auto) 10.12 K/uL Lymphocytes # (Auto) 0.31 K/uL Monocytes # (Auto) 0.35 K/uL Eosinophils # (Auto) 0.00 K/uL Basophils # (Auto) 0.01 K/uL RDW Standard Deviation 50.4 fL RDW Coefficient of Variation 17.5 % Immature Granulocyte % (Auto) 0.2 % Immature Granulocyte # (Auto) 0.02 K/uL Nucleated RBC Absolute Count (auto) 0.02 K/uL Nucleated Red Blood Cells % 0.2 % Sodium Level 139 mmol/L Potassium Level 3.5 mmol/L Chloride Level 102 mmol/L Carbon Dioxide Level 33 mmol/L Anion Gap 4.0 mmol/L Blood Urea Nitrogen 16 mg/dl Creatinine 0.94 mg/dl Est Creatinine Clear Calc Drug Dose 75.9 ml/min Estimated GFR () 91.6 Estimated GFR (Non- 79.0 BUN/Creatinine Ratio 17.1 Random Glucose 130 mg/dl Lactic Acid Level 2.6 mmol/L 3.5 mmol/L Calcium Level 8.0 mg/dl Phosphorus Level 3.4 mg/dl Magnesium Level 1.9 mg/dl Thyroid Stimulating Hormone (TSH) 0.727 uIu/ml Hepatitis B Surface Antigen NEG Hepatitis C Antibody NEG
[2017-04-20] MEDS: PIPERACILL/TAZOBAC IV 3.375 GM in DEXTROSE 5% 100ML 100 ML IV SCH ×2 (12:57→20:43)
--- NOTE | 2017-04-20 14:02 | CONSULTATION REPORT ---
DATE OF CONSULTATION: 04/20/2017 FOR: Dr. Lantigua and Dr. Rodriguez. SUBJECTIVE: Stephane is 76 years old and is currently in the ICU and presented with a respiratory failure several days ago. I refer the reader to the history and physical dictated by Dr. Rodriguez on April 19. He is regular patient of Dr. Hernandez, he has not been seeing him now for myasthenia gravis in conjunction with Dr. Juancho Morris at [facility]. He was diagnosed with myasthenia, probably 5-6 years ago had some crises type situation requiring inpatient plasma exchange but has been stabilized now on his current dose of Imuran 50 mg daily, Mestinon 60 mg 4 times a day and prednisone 30 mg daily. I had tried him on 40 mg every other day about 3 months ago in hopes that this would treat a mild flare up of his disease and recommended that he get in touch with Dr. Morris as we do not have plasma exchange or ready access to IVIG protocols here should he have issues and in fact a plastic exchange was the only treatment that actually worked for him, [place] when he was there. He was doing well up until the last week or so when he has become increasingly respiratory compromised and hypoxemia, has had an x-ray of his chest showing bilateral pneumonias, but also very suspicious for metastatic deposits and a CT of the abdomen shows deposits in the liver as well. He does have a history of melanoma in situ, which was a small lesion treated by Mohs surgery back in about 6-8 months ago and no adenopathy, etc. was noted at that time. He has remote history of apparently a colonic polyp removed by colonoscope, probably 5 years ago and he had another colonoscopy 2 years ago which was apparently negative, this was all done at [place]. 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 He has also post-transurethral resection of the prostate or actually a radical prostatectomy for prostate CA and his most recent PSA was less than 0.02 and no evidence for metastatic disease at least has been documented. Other problems include hypothyroidism, hypertension, polycythemia vera. MEDICATION LIST: Includes in addition to the Mestinon, Imuran and prednisone, Norvasc, aspirin, cholecalciferol, hydrochlorothiazide, levothyroxine, Prilosec, and no other agents. ALLERGIES: He has no known allergies. FAMILY HISTORY: Noncontributory. SOCIAL HISTORY: Reveals him to be and retired and he has moved from [place] to the [facility] to be near to his children and grandchildren and is active taken care of them. He is a former smoker, does not consume ethanol to any degree at present. REVIEW OF SYSTEMS: Reveals malaise, fatigue and dyspnea over the last week, but otherwise no systemic complaints of note, no new issues referable to head, ears, nose and throat other than some mild dysarthria and occasional ptosis related to his myasthenia; no cardiovascular, pulmonary, gastrointestinal, genitourinary, or musculoskeletal issues other than those described above under the history of present illness and past medical history. PHYSICAL EXAMINATION: VITAL SIGNS: His blood pressure was 157/93, pulse was 84, and respirations were 22. He was in a mild degree of distress. HEENT: There were no abnormalities on examination of head, eyes, ears, nose and throat. NECK: There were no carotid bruits. LUNGS: Had some mild decreased breath so sounds and a few crackles. HEART: Had a regular rhythm without murmurs. ABDOMEN: Soft, nontender. EXTREMITIES: Free of edema and had good peripheral pulses. NEUROLOGIC: Today neurologically, he is awake, alert, oriented in 3 spheres. There may be a slight degree of dysarthria of speech which pretty subtle. 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 I certainly see nothing on the right. There are no limitations of ocular movements. Facial motility and strength is normal. Facial sensation is normal. Tongue protrudes in the midline. Neck flexor strength is normal. He has excellent strength in the extremities. Reflexes are 1+. Toes are downgoing. No Tom signs are seen. There is no atrophy. No fasciculations. Sensory examination reveals some minor loss of laboratory distally. ASSESSMENT AND PLAN: The current issues in his case are unfortunately the presence of metastatic deposits or presumptive metastatic deposits in his lungs and liver, whose primary source is yet unknown. While this could be the melanoma, I am suspicious this is probably going to be a GI malignancy, i.e., an adenocarcinoma of unknown primary. At this point, he is going to need tissue diagnosis, maintenance of his myasthenia medications, coverage for his steroid dependency with hydrocortisone intravenously and I will check back with him periodically, but I would not make any changes in his myasthenic regimen at this point other than to cover him with an extra dose steroids and observe him carefully. I will see him daily. JAMEYD
--- NOTE | 2017-04-20 16:00 | DIAGNOSTIC IMAGING REPORT ---
BRAIN WITHOUT CONTRAST HISTORY: 76 years-old Male r/o mets hx melanoma history of melanoma with multiple metastatic foci seen throughout the chest, abdomen and pelvis. COMPARISON: CT chest, abdomen and pelvis 04/19/2017 TECHNIQUE: Multiplanar multisequence MRI of the brain was obtained without contrast. FINDINGS: The large field view machine guide base winder localizer images demonstrate no gross abnormality. Large calcification of the falx cerebri is noted adjacent to the frontal lobes, 3.3 x 0.8 x 1.7 cm. The midline structures including the corpus callosum, brainstem, optic chiasm, pineal gland and cerebellar tonsils are unremarkable the sagittal T1 series. The sella is partially empty. Infundibulum is unremarkable. Degenerative changes are seen within the imaged upper cervical spine. Evaluation for metastatic disease is limited without the use of IV contrast. There is no restricted diffusion to suggest acute infarction. There is no acute intracranial hemorrhage, midline shift or abnormal extra-axial collections. Mild cerebral atrophy. Minimal increased T2/FLAIR signal within the periventricular white matter of the frontal lobes suggests subtle chronic microvascular ischemic changes. There is a 5 x 5 mm focus of increased T1 signal noted involving the medial aspect of the posterior right frontal lobe near the vertex, image 18 series 8 with mild associated edema on the axial T2 images. No definite additional T1 hyperintense lesions identified. The major flow voids at the level the skull base appear patent. Orbits are symmetric. Mastoid air cells are clear. Mild mucosal thickening of the left maxillary antrum. Scalp, calvarium and soft tissues are unremarkable. IMPRESSION: 1. Limited evaluation for metastatic disease without the use of IV contrast. 2. 5 x 5 mm focus of mildly increased T1 signal involving the medial aspect of the posterior right frontal lobe near the vertex adjacent to the falx cerebri as above is suspicious for possible melanoma metastasis. 3. No acute infarction identified. The above report was generated using voice recognition software. It may contain grammatical, syntax or spelling errors. Electronically signed by: Fidel Parkinson M.D. 04/20/2017 3:58 PM Dictated Date/Time: 04/20/2017 3:49 PM
--- NOTE | 2017-04-20 19:07 | Progress Note ---
Medicine Progress Note Date & Time of Visit: Apr 20, 2017 at 16:43. Subjective Pt was seen and examined Lying in bed with no distress with at bedside Pt said that his breathing slightly improved Denies any chest pain, headache, palpitation, fever Objective Last 8 Hrs Date Time Temp Pulse Resp B/P (MAP) Pulse Ox O2 Delivery O2 Flow Rate FiO2 04/20/17 18:00 84 22 172/99 (123) 92 High Flow Oxygen 44.0 60 04/20/17 16:19 88 20 91 Nasal Cannula 45.0 60 04/20/17 16:00 93 High Flow Oxygen 44.0 04/20/17 16:00 37.0 85 24 144/81 (102) 93 High Flow Oxygen 60 04/20/17 14:00 91 22 157/82 (107) 95 High Flow Oxygen 04/20/17 12:09 88 20 91 Nasal Cannula 45.0 60 04/20/17 12:00 36.4 90 20 139/75 (96) 90 High Flow Oxygen 04/20/17 12:00 90 High Flow Oxygen Physical Exam: General- no acute distress Head- atraumatic Eyes- PERRL, EOMI ENT- oropharynx clear Neck- supple, no JVD Lungs- Decrease BS, +crackles Heart- regular rhythm Abdomen- normal bowel sounds, soft Extremities- no calf tenderness Neuro- alert, oriented x 3; PERRL, EOMI; no facial palsy; no dysarthria Skin- warm & dry Laboratory Results: Last 24 Hours Test 04/19/17 20:09 04/19/17 20:56 04/19/17 22:37 04/19/17 23:40 Lactic Acid Level 3.7 mmol/L 2.7 mmol/L Urine Color YELLOW Urine Appearance CLEAR Urine pH 5.5 Urine Specific [place] > 1.045 Urine Protein NEG Urine Glucose (UA) NEG Urine Ketones TRACE Urine Occult Blood NEG Urine Nitrite NEG Urine Bilirubin NEG Urine Urobilinogen NEG Urine Leukocyte Esterase NEG Bedside Glucose 146 mg/dl Test 04/20/17 03:56 04/20/17 07:52 04/20/17 11:54 White Blood Count 10.81 K/uL Red Blood Count 4.83 M/uL Hemoglobin 12.0 g/dL Hematocrit 39.0 % Mean Corpuscular Volume 80.7 fL Mean Corpuscular Hemoglobin 24.8 pg Mean Corpuscular Hemoglobin Concent 30.8 g/dl Platelet Count 370 K/uL Mean Platelet Volume 9.0 fL Neutrophils (%) (Auto) 93.6 % Lymphocytes (%) (Auto) 2.9 % Monocytes (%) (Auto) 3.2 % Eosinophils (%) (Auto) 0.0 % Basophils (%) (Auto) 0.1 % Neutrophils # (Auto) 10.12 K/uL Lymphocytes # (Auto) 0.31 K/uL Monocytes # (Auto) 0.35 K/uL Eosinophils # (Auto) 0.00 K/uL Basophils # (Auto) 0.01 K/uL RDW Standard Deviation 50.4 fL RDW Coefficient of Variation 17.5 % Immature Granulocyte % (Auto) 0.2 % Immature Granulocyte # (Auto) 0.02 K/uL Nucleated RBC Absolute Count (auto) 0.02 K/uL Nucleated Red Blood Cells % 0.2 % Sodium Level 139 mmol/L Potassium Level 3.5 mmol/L Chloride Level 102 mmol/L Carbon Dioxide Level 33 mmol/L Anion Gap 4.0 mmol/L Blood Urea Nitrogen 16 mg/dl Creatinine 0.94 mg/dl Est Creatinine Clear Calc Drug Dose 75.9 ml/min Estimated GFR () 91.6 Estimated GFR (Non- 79.0 BUN/Creatinine Ratio 17.1 Random Glucose 130 mg/dl Lactic Acid Level 2.6 mmol/L 3.5 mmol/L 3.9 mmol/L Calcium Level 8.0 mg/dl Phosphorus Level 3.4 mg/dl Magnesium Level 1.9 mg/dl Thyroid Stimulating Hormone (TSH) 0.727 uIu/ml Hepatitis B Surface Antigen NEG Hepatitis C Antibody NEG Date/Time Source Procedure Growth Status 04/19/17 23:00 Sputum Expectorated Sputum Gram Stain - Final Resulted 04/19/17 23:00 Sputum Expectorated Sputum Sputum Culture Pending Resulted Assessment & Plan Acute Hypoxic Respiratory Failure PNEUMONIA CTA chest showed Innumerable nodules throughout the lungs. Although nonspecific , extensive metastatic disease is favored. Upper lobe predominant airspace opacity within the lungs. NO PE identified has been on high flow oxygen and CPAP at night negative for flu Elevated lactic acid and WBC Continue IV Vancomycin, Zosyn, and Levaquin broad spectrum coverage Continue monitor in the ICU Stable Pulmonary/Liver nodules Unknown primary source Possible metastatic melanoma CT of the chest/abdomen/pelvis suggest metastatic disease to the lung and liver MRI head wi/o contrast showed 5 x 5 mm focus of mildly increased T1 signal involving the medial aspect posterior right frontal lobe suspicious for possible melanoma metastasis. 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 Hem/Oncology Pulmonary Current Inpatient Medications: Current Inpatient Medications Medications (Trade) Dose Ordered Sig/Kevin Route Start Time Stop Time Status Last Admin Dose Admin Acetaminophen (Tylenol Tab) 650 mg Q4H PRN PO 04/19/17 14:30 05/19/17 14:29 Ondansetron HCl (Zofran Inj) 4 mg Q6H PRN IV 04/19/17 14:30 05/19/17 14:29 Amlodipine Besylate (Norvasc Tab) 5 mg DAILY PO 04/20/17 09:00 05/20/17 08:59 04/20/17 07:53 5 MG Aspirin (Ecotrin Tab) 81 mg DAILY PO 04/20/17 09:00 05/20/17 08:59 04/20/17 07:51 81 MG Azathioprine (Imuran Tab) 50 mg DAILY PO 04/20/17 09:00 05/20/17 08:59 04/20/17 07:52 50 MG Levothyroxine Sodium (Synthroid Tab) 50 mcg DAILYBB PO 04/20/17 06:00 05/20/17 06:59 04/20/17 06:34 50 MCG Pyridostigmine [place] (Mestinon Tab) 60 mg QID PO 04/19/17 21:00 05/19/17 20:59 04/20/17 16:27 60 MG Pantoprazole Sodium (Protonix Tab) 40 mg DAILY PO 04/20/17 09:00 05/20/17 08:59 04/20/17 07:53 40 MG Levofloxacin 750 mg/Prmx 150 ml @ 100 mls/hr Q24H IV 04/20/17 09:00 04/27/17 08:59 04/20/17 07:56 100 MLS/HR Albuterol/ Ipratropium (Duoneb) 3 ml QIDR INH 04/19/17 20:00 05/19/17 19:59 04/20/17 14:55 3 ML Levalbuterol (Xopenex 0.63 Mg/ 3 Ml Neb) 0.63 mg Q6H PRN INH 04/19/17 16:30 05/19/17 16:29 04/19/17 17:16 0.63 MG Glucose (Glucose 40% Gel) 15-30 GRAMS 15 GRAMS... UD PRN PO 04/19/17 17:15 05/19/17 17:14 Glucose (Glucose Chew Tab) 4-8 Tablets 4 Tabl... UD PRN PO 04/19/17 17:15 05/19/17 17:14 Dextrose (Dextrose 50% 50ML Syringe) 25-50ML OF 50% DW IV FOR... UD PRN IV 04/19/17 17:15 05/19/17 17:14 Glucagon (Glucagon Inj) 1 mg UD PRN SQ 04/19/17 17:15 05/19/17 17:14 Ioversol (Optiray 320) 100 ml UD PRN IV 04/19/17 17:45 04/23/17 17:44 Enoxaparin Sodium (Lovenox Inj) 100 mg Q12@0800,2000 SQ 04/19/17 20:00 05/19/17 19:59 04/20/17 07:51 100 MG Miscellaneous Information (Icu Protocol For Hyperglycemia) 1 ea PRN PRN N/A 04/19/17 19:45 04/21/17 19:44 Miscellaneous Information ( [facility] Electrolyte Replacement Protocol) 1 ea per protocol PRN N/A 04/19/17 19:45 04/26/17 19:44 Piperacillin Sod/ Tazobactam Sod 3.375 gm/Dextrose 115 ml @ 28.75 mls/ hr Q8H IV 04/20/17 12:00 04/21/17 19:59 04/20/17 12:57 28.75 MLS/HR Piperacillin Sod/ Tazobactam Sod (Consult) 1 ea UD PRN N/A 04/20/17 06:45 05/20/17 06:44
[2017-04-21] VITALS (12 sets, daily range): BP systolic 129–162; BP diastolic 77–96; PULSE 55–84; TEMP 36.4–37; O2SAT 89–95
[2017-04-21] MEDS: PIPERACILL/TAZOBAC IV 3.375 GM in DEXTROSE 5% 100ML 100 ML IV SCH ×2 (04:59→13:00)
[2017-04-21] MEDS: LEVOTHYROXINE 50 MCG TAB PO SCH (06:16)
[2017-04-21 06:32] LABS: HEMATOCRIT 39.7 % (42-52); HEMOGLOBIN 11.7 g/dL (14.0-18.0); MEAN CELL VOLUME 82.2 fL (80-100); MEAN CORPUSCULAR HEMOGLOBIN 24.2 pg (25-34); MEAN CORPUSCULAR HGB CONC 29.5 g/dl (32-36); MEAN PLATELET VOLUME 9.5 fL (7.4-10.4); PLATELET COUNT 450 K/uL (130-400); RED CELL DISTRIBUTION WIDTH CV 17.6 % (11.5-14.5); RED CELL DISTRIBUTION WIDTH SD 52.1 fL (36.4-46.3); WHITE BLOOD COUNT 10.65 K/uL (4.8-10.8)
[2017-04-21 07:14] LABS: CREATININE 0.92 mg/dl (0.60-1.40); POTASSIUM 3.2 mmol/L (3.5-5.1)
[2017-04-21 07:16] LABS: PHOSPHORUS 2.6 mg/dl (2.5-4.9)
[2017-04-21] MEDS ORDERED: ICU ELECTROLYTE REPLACEMENT PROTOCOL PRN (07:30)
[2017-04-21] MEDS ORDERED: POTASSIUM CHLORIDE 20 MEQ TABCR PO SCH (07:30)
[2017-04-21] MEDS ORDERED: POTASSIUM CHLORIDE 20 MEQ TABCR PO ONE (07:45)
[2017-04-21] MEDS: PYRIDOSTIGMINE BROMIDE 60 MG TAB PO SCH ×4 (08:28→20:53)
[2017-04-21] MEDS: PANTOprazole SOD 40 MG TAB PO SCH (08:28)
[2017-04-21] MEDS: AZATHIOPRINE 50 MG TAB PO SCH (08:28)
[2017-04-21] MEDS: AMLODIPINE BESYLATE 5 MG TAB PO SCH (08:28)
[2017-04-21] MEDS: ASPIRIN 81 MG ECTAB PO SCH (08:28)
[2017-04-21] MEDS ORDERED: NURSING VERBAL MED ORDER ONE ×3 (09:30→15:45)
--- NOTE | 2017-04-21 10:28 | Pharmacy Progress Note ---
Pharmacy Abx Dose Short Note Date of Service Apr 21, 2017. Assessment & Plan Assessment 76 year old male receiving zosyn and levaquin for treatment of multifocal pneumonia Day # 3 of antimicrobial therapy. Plan * Levaquin discontinued today given patient has history of myasthenia gravis * Zosyn to continue for now given respiratory/clinical status and imaging Pharmacy will continue to follow and will adjust dose/frequency as necessary. Thank you.
--- NOTE | 2017-04-21 11:47 | Palliative Care Consultation ---
Consultation Date of Consultation: Apr 21, 2017. Requesting Physician: Dr. Aranda Attending Physician: Dr. Rodriguez Reason for Consultation: Goals of care History of Present Illness This 76 year old male patient with PMH myasthenia gravis on prednisone taper outpatient, prostate cancer, thyroid cancer, htn, and others listed below presented to the hospital two days ago with c/o four days shortness of breath. Upon arrival, patient sats in 70s, placed on 5LNC. CXR obtained which showed extensive bilateral airspace opacities, CT chest showed innumerable pulmonary nodules throughout bilateral lungs which could be metastatic disease with the appearance of possible metastatic melanoma. Oxygen needs increased, patient is now on high-flow nasal cannula at 50LPM and 70% FiO2. There is question and ongoing conversation about what the course of action will be for Mr. Shaikh regarding obtaining tissue biopsy for the new, extensive lung disease. Palliative care is consulted to help establish goals of care and to be extra layer of support for family in difficult medical decision-making. I met with the patient, Dr. Aranda, Dr. Mcgee, Dr. Griffith, and respiratory therapist in room 105. Patient is awake, alert and oriented x4. He is in no distress, sitting in bed on high-flow nasal cannula. Patient is clear-minded and able to make his own decision at this point. Dr. Aranda laid out patient's current medical problems and discussed some options of how to move forward. Patient does have a lesion under the skin on the left side under breast that could potentially be CT-guided biopsied vs. doing bronchoscopy. The risk with bronchoscopy of course is that patient would certainly require intubation, and extubation/liberation from ventilatory will likely be difficult. Patient states he has always been a "proactive person," and would err on the side of doing the bronchoscopy and "putting it in God's hands." However, patient does have some concerns about his making decisions for him in the case he is unable to, such as if he is unable to be liberated from the vent. He states that his won't even sign off on a living will because "she just doesn't want to hear about it." Patient is requesting that further conversation be held when his is here. Past Medical/Surgical History Medical History: Myasthenia Gravis Htn Hypothyroidism s/p thyroidectomy and thyroid cancer Prostate cancer s/p prostatectomy Melanoma s/p resection of lesion on right side of nose Polycythemia vera Social History Smoking Status: Former Smoker History of Alcohol Use: Yes (1 x month) Drug Use: none Marital Status: Review of Systems Constitutional: No weakness ENT: No trouble swallowing Respiratory: + shortness of breath, + dyspnea on exertion, No wheezing Cardiac: No chest pain, No edema Abdomen: No pain, No nausea, No vomiting Male : No problem reported Neurologic: No problem reported (currently no probelms with his MG) Psychiatric: No anxiety Skin: No problem reported (has not seen any lesions on skin) Allergies Coded Allergies: No Known Allergies (Unverified , 04/19/17) Medications Current Inpatient Medications Medications (Trade) Dose Ordered Sig/Kevin Route Start Time Stop Time Status Last Admin Dose Admin Acetaminophen (Tylenol Tab) 650 mg Q4H PRN PO 04/19/17 14:30 05/19/17 14:29 Ondansetron HCl (Zofran Inj) 4 mg Q6H PRN IV 04/19/17 14:30 05/19/17 14:29 Amlodipine Besylate (Norvasc Tab) 5 mg DAILY PO 04/20/17 09:00 05/20/17 08:59 04/21/17 08:28 5 MG Aspirin (Ecotrin Tab) 81 mg DAILY PO 04/20/17 09:00 05/20/17 08:59 04/21/17 08:28 81 MG Azathioprine (Imuran Tab) 50 mg DAILY PO 04/20/17 09:00 05/20/17 08:59 04/21/17 08:28 50 MG Levothyroxine Sodium (Synthroid Tab) 50 mcg DAILYBB PO 04/20/17 06:00 05/20/17 06:59 04/21/17 06:16 50 MCG Pyridostigmine [place] (Mestinon Tab) 60 mg QID PO 04/19/17 21:00 05/19/17 20:59 04/21/17 08:28 60 MG Pantoprazole Sodium (Protonix Tab) 40 mg DAILY PO 04/20/17 09:00 05/20/17 08:59 04/21/17 08:28 40 MG Glucose (Glucose 40% Gel) 15-30 GRAMS 15 GRAMS... UD PRN PO 04/19/17 17:15 05/19/17 17:14 Glucose (Glucose Chew Tab) 4-8 Tablets 4 Tabl... UD PRN PO 04/19/17 17:15 05/19/17 17:14 Dextrose (Dextrose 50% 50ML Syringe) 25-50ML OF 50% DW IV FOR... UD PRN IV 04/19/17 17:15 05/19/17 17:14 Glucagon (Glucagon Inj) 1 mg UD PRN SQ 04/19/17 17:15 05/19/17 17:14 Ioversol (Optiray 320) 100 ml UD PRN IV 04/19/17 17:45 04/23/17 17:44 Miscellaneous Information (I[facility] Protocol For Hyperglycemia) 1 ea PRN PRN N/A 04/19/17 19:45 04/21/17 19:44 Miscellaneous Information ( [facility]cu Electrolyte Replacement Protocol) 1 ea per protocol PRN N/A 04/19/17 19:45 04/26/17 19:44 Piperacillin Sod/ Tazobactam Sod 3.375 gm/Dextrose 115 ml @ 28.75 mls/ hr Q8H IV 04/20/17 12:00 04/21/17 19:59 04/21/17 04:59 28.75 MLS/HR Piperacillin Sod/ Tazobactam Sod (Consult) 1 ea UD PRN N/A 04/20/17 06:45 05/20/17 06:44 Potassium Chloride (Lorena Ciel Elix) 20 meq Q4H PO 04/21/17 12:30 04/21/17 16:31 Physical Exam Date Time Temp Pulse Resp B/P (MAP) Pulse Ox O2 Delivery O2 Flow Rate FiO2 04/21/17 10:00 36.5 79 20 150/84 (106) 90 High Flow Oxygen 50.0 04/21/17 08:00 36.5 75 21 152/80 (104) 91 High Flow Oxygen 50.0 04/21/17 08:00 High Flow Oxygen 50.0 04/21/17 06:00 76 20 148/85 (106) 90 High Flow Oxygen 45.0 04/21/17 04:00 CPAP 04/21/17 04:00 37.0 65 18 154/96 (115) 89 CPAP 04/21/17 02:00 55 19 129/77 (94) 94 CPAP 04/21/17 00:01 37.0 77 16 162/90 (114) 93 CPAP 04/20/17 23:59 CPAP 04/20/17 23:11 76 93 50 04/20/17 22:00 72 18 164/97 (119) 91 High Flow Oxygen 45.0 60 04/20/17 20:00 37.0 80 16 180/82 (114) 96 High Flow Oxygen 44.0 60 04/20/17 20:00 High Flow Oxygen 45.0 60 04/20/17 19:59 80 16 92 Nasal Cannula 45.0 60 04/20/17 18:00 84 22 172/99 (123) 92 High Flow Oxygen 44.0 60 04/20/17 16:19 88 20 91 Nasal Cannula 45.0 60 04/20/17 16:00 93 High Flow Oxygen 44.0 04/20/17 16:00 37.0 85 24 144/81 (102) 93 High Flow Oxygen 60 04/20/17 14:00 91 22 157/82 (107) 95 High Flow Oxygen 04/20/17 12:09 88 20 91 Nasal Cannula 45.0 60 04/20/17 12:00 36.4 90 20 139/75 (96) 90 High Flow Oxygen 04/20/17 12:00 90 High Flow Oxygen General Appearance: no apparent distress, + obese ENT: hearing grossly normal Neck: supple, no JVD Respiratory: no respiratory distress, no accessory muscle use, + decreased breath sounds, + crackles (R > L), + rhonchi Cardiovascular: regular rate, rhythm, no edema, + normal peripheral pulses Abdomen: normal bowel sounds, non tender, soft (obese abdomen) Neurologic/Psychiatric: alert, normal mood/affect, oriented x 3 Skin: normal color Laboratory Results Last 24 Hours Test 04/20/17 11:54 04/20/17 22:38 04/21/17 05:53 Lactic Acid Level 3.9 mmol/L Bedside Glucose 118 mg/dl White Blood Count 10.65 K/uL Red Blood Count 4.83 M/uL Hemoglobin 11.7 g/dL Hematocrit 39.7 % Mean Corpuscular Volume 82.2 fL Mean Corpuscular Hemoglobin 24.2 pg Mean Corpuscular Hemoglobin Concent 29.5 g/dl RDW Standard Deviation 52.1 fL RDW Coefficient of Variation 17.6 % Platelet Count 450 K/uL Mean Platelet Volume 9.5 fL Sodium Level 139 mmol/L Potassium Level 3.2 mmol/L Chloride Level 102 mmol/L Carbon Dioxide Level 31 mmol/L Anion Gap 6.0 mmol/L Blood Urea Nitrogen 22 mg/dl Creatinine 0.92 mg/dl Est Creatinine Clear Calc Drug Dose 77.7 ml/min Estimated GFR () 94.0 Estimated GFR (Non- 81.1 BUN/Creatinine Ratio 23.8 Random Glucose 86 mg/dl Calcium Level 8.0 mg/dl Phosphorus Level 2.6 mg/dl Magnesium Level 2.2 mg/dl Assessment & Plan Problem list: SOB/ARIAS Hypoxia Abnormal CT chest with extensive, innumerable bilateral lung nodules Bilateral airspace opacities- ?Pneumonia Hx myasthenia gravis, melanoma Goals of care (Z51.5) Palliative care recs: -Further discussion to be had when patient's family arrives regarding how the team will move forward with patient's care. -Patient is alluding to the fact that at this time, he would like to be proactive and pursue full treatment with bronchoscopy for tissue biopsy. He is aware of the risk of prolonged intubation post procedure. He would like for his to be here to discuss this and also discuss what will happen if he is unable to be liberated from the ventilator. -Should having living will or POLST form completed including naming someone who will be his decision maker in the case he is unable. I will discuss this with he and his . Thank you kindly for this consult. I will follow.
[2017-04-21] MEDS: POTASSIUM CHLORIDE 20 MEQ/15 ML UDC PO SCH ×2 (13:00→17:18)
--- NOTE | 2017-04-21 13:06 | Pulmonology Progress Note ---
Pulmonary Progress Note Date of Service Apr 21, 2017. Attending Dr. Lyman Subjective Patient continues to note dyspnea on exertion. No significant heel coverer the last 24 hours. Objective Patient currently on high-flow system at 50 liters/minute. He is able to complete full sentences but does have associated tachypnea. VS: I/Os: +2.5L SaO2%: 89-94% FiO2: 45-50L BiPAP: RR: 16-21 Resp: bronchi bilaterally Card: S1 S2 distant HS Abd: soft, none tender Ext: 1+ pitting edema Studies WBC: 1411K ABG (04/19/17) 7.45/43/62/30 O2: 5L Lactic Acid: 3.9 Pending: o Legionella Urine Ag o Hep A o Hep B o Mycoplasma: Pending MRI Brain (non-contrast): 5x5mm right posterior frontal lobe Chest CT: no PE, numerous pulmonary nodules, upper lobe opacifications, mediastinal adenopathy Active pulmonary Medications: 1. Zosyn 2. Azathioprine 3. Protonix 4. Mestinon Assessment & Plan Hypoxic respiratory failure with multiple pulmonary nodules: 1. Hypoxia: Patient's hypoxia is most likely associated with tumor emboli to the lung. I do agree with current antibiotic choices. I also would suggest initiating Bactrim at this time for PCP coverage. High-flow oxygen is stabilizing the patient. 2. Pulmonary nodules: Patient has a history of myasthenia gravis as well as chronic immunosuppressive and melanoma. This places him at risk for multiple different etiologies from atypical lymphoid tumors, metastatic melanoma and/or atypical infections. At this time bronchoscopy with transbronchial biopsies and /or possible trans abdominal liver biopsies are being evaluated. 3. Tracheostomy: I do agree with ICU team that the patient requires intubation after a procedure that early tracheostomy is warranted in this case. We will continue to follow Data Medications: Current Inpatient Medications Medications (Trade) Dose Ordered Sig/Kevin Route Start Time Stop Time Status Last Admin Dose Admin Acetaminophen (Tylenol Tab) 650 mg Q4H PRN PO 04/19/17 14:30 05/19/17 14:29 Ondansetron HCl (Zofran Inj) 4 mg Q6H PRN IV 04/19/17 14:30 05/19/17 14:29 Amlodipine Besylate (Norvasc Tab) 5 mg DAILY PO 04/20/17 09:00 05/20/17 08:59 04/21/17 08:28 5 MG Aspirin (Ecotrin Tab) 81 mg DAILY PO 04/20/17 09:00 05/20/17 08:59 04/21/17 08:28 81 MG Azathioprine (Imuran Tab) 50 mg DAILY PO 04/20/17 09:00 05/20/17 08:59 04/21/17 08:28 50 MG Levothyroxine Sodium (Synthroid Tab) 50 mcg DAILYBB PO 04/20/17 06:00 05/20/17 06:59 04/21/17 06:16 50 MCG Pyridostigmine [place] ([place] Tab) 60 mg QID PO 04/19/17 21:00 05/19/17 20:59 04/21/17 08:28 60 MG Pantoprazole Sodium (Protonix Tab) 40 mg DAILY PO 04/20/17 09:00 05/20/17 08:59 04/21/17 08:28 40 MG Glucose (Glucose 40% Gel) 15-30 GRAMS 15 GRAMS... UD PRN PO 04/19/17 17:15 05/19/17 17:14 Glucose (Glucose Chew Tab) 4-8 Tablets 4 Tabl... UD PRN PO 04/19/17 17:15 05/19/17 17:14 Dextrose (Dextrose 50% 50ML Syringe) 25-50ML OF 50% DW IV FOR... UD PRN IV 04/19/17 17:15 05/19/17 17:14 Glucagon (Glucagon Inj) 1 mg UD PRN SQ 04/19/17 17:15 05/19/17 17:14 Ioversol (Optiray 320) 100 ml UD PRN IV 04/19/17 17:45 04/23/17 17:44 Miscellaneous Information ([facility] Protocol For Hyperglycemia) 1 ea PRN PRN N/A 04/19/17 19:45 04/21/17 19:44 Miscellaneous Information ( [facility] Electrolyte Replacement Protocol) 1 ea per protocol PRN N/A 04/19/17 19:45 04/26/17 19:44 Piperacillin Sod/ Tazobactam Sod 3.375 gm/Dextrose 115 ml @ 28.75 mls/ hr Q8H IV 04/20/17 12:00 04/21/17 19:59 04/21/17 04:59 28.75 MLS/HR Piperacillin Sod/ Tazobactam Sod (Consult) 1 ea UD PRN N/A 04/20/17 06:45 05/20/17 06:44 Potassium Chloride (Lorena Sanchez Elix) 20 meq Q4H PO 04/21/17 12:30 04/21/17 16:31 Vital Signs: Date Time Temp Pulse Resp B/P (MAP) Pulse Ox O2 Delivery O2 Flow Rate FiO2 04/21/17 12:00 High Flow Oxygen 50.0 04/21/17 12:00 36.4 84 20 136/82 (100) 92 High Flow Oxygen 50.0 04/21/17 10:00 36.5 79 20 150/84 (106) 90 High Flow Oxygen 50.0 04/21/17 08:00 36.5 75 21 152/80 (104) 91 High Flow Oxygen 50.0 04/21/17 08:00 High Flow Oxygen 50.0 04/21/17 06:00 76 20 148/85 (106) 90 High Flow Oxygen 45.0 04/21/17 04:00 CPAP 04/21/17 04:00 37.0 65 18 154/96 (115) 89 CPAP 04/21/17 02:00 55 19 129/77 (94) 94 CPAP 04/21/17 00:01 37.0 77 16 162/90 (114) 93 CPAP 04/20/17 23:59 CPAP 04/20/17 23:11 76 93 50 04/20/17 22:00 72 18 164/97 (119) 91 High Flow Oxygen 45.0 60 04/20/17 20:00 37.0 80 16 180/82 (114) 96 High Flow Oxygen 44.0 60 04/20/17 20:00 High Flow Oxygen 45.0 60 04/20/17 19:59 80 16 92 Nasal Cannula 45.0 60 04/20/17 18:00 84 22 172/99 (123) 92 High Flow Oxygen 44.0 60 04/20/17 16:19 88 20 91 Nasal Cannula 45.0 60 04/20/17 16:00 93 High Flow Oxygen 44.0 04/20/17 16:00 37.0 85 24 144/81 (102) 93 High Flow Oxygen 60 04/20/17 14:00 91 22 157/82 (107) 95 High Flow Oxygen Laboratory Results: Last 24 Hours Test 04/20/17 22:38 04/21/17 05:53 04/21/17 11:11 Bedside Glucose 118 mg/dl 95 mg/dl White Blood Count 10.65 K/uL Red Blood Count 4.83 M/uL Hemoglobin 11.7 g/dL Hematocrit 39.7 % Mean Corpuscular Volume 82.2 fL Mean Corpuscular Hemoglobin 24.2 pg Mean Corpuscular Hemoglobin Concent 29.5 g/dl RDW Standard Deviation 52.1 fL RDW Coefficient of Variation 17.6 % Platelet Count 450 K/uL Mean Platelet Volume 9.5 fL Sodium Level 139 mmol/L Potassium Level 3.2 mmol/L Chloride Level 102 mmol/L Carbon Dioxide Level 31 mmol/L Anion Gap 6.0 mmol/L Blood Urea Nitrogen 22 mg/dl Creatinine 0.92 mg/dl Est Creatinine Clear Calc Drug Dose 77.7 ml/min Estimated GFR () 94.0 Estimated GFR (Non- 81.1 BUN/Creatinine Ratio 23.8 Random Glucose 86 mg/dl Calcium Level 8.0 mg/dl Phosphorus Level 2.6 mg/dl Magnesium Level 2.2 mg/dl
--- NOTE | 2017-04-21 15:25 | Critical Care Progress Note ---
Critical Care Progress Note Date of Service Apr 21, 2017. ICU Day ICU Day Number: [address] Aranda Subjective Patient resting comfortably in bed this morning with no acute complaints. Patient now requiring high flow nasal cannula with FiO2 of 70% but states his shortness of breath is approximately the same as when he presented to the ED. We had a family discussion this afternoon regarding options going forward including bronchoscopy for biopsy of the lung nodules with a significant risk for intubation, in addition to IR guided biopsy of the liver. The patient had questions regarding risks of the procedure in addition to details regarding the procedures themselves. The patient and his family will come to decision overnight regarding the next steps in his care. It was explained that at this time his diagnosis is most like a metastatic cancer especially considering his previous history of melanoma and pancreatic cancer, and that the current nodule lode in the lung may pose a risk for potential intubation after bronchoscopy. Objective General Appearance: WD/WN, saturating 91% on high flow nasal cannula at 70% FiO2 Head: normocephalic, atraumatic Neck: trachea midline, supple Respiratory: Currently on hig flow nasal cannula, Bilateral crackles, no increased work of breathing or respiratory distress Cardiovasular: regular rate/rhythm, normal S1S2, no M/G/R Abdomen: non tender, normal bowel sounds Neuro: alert, oriented x 3 Current SOFA Score SOFA Score Response (Comments) Value Platelets (x10) > 150 0 Bilirubin (mg/dL) < 1.2 0 Grayling Coma Score 15 0 Level of Hypotension No Hypotension 0 Creatinine (mg/dL) < 1.2 0 Total 0 Assessment & Plan Patient is a 76 year old male that presents with acute hypoxic respiratory failure 2/2 bilateral pneumonia superimposed on presumed metastatic melanoma ( new diagnosis on this admission). Patient has decided he would like liver biopsy performed by Dr. Callejas. Currently on high flow nasal cannula with FiO2 70% Neuro - [facility] ICU- Negative - Alert and Oriented - Continue Azathioprine 50mg daily for MG - Continue Pyridostigmine Bromine 60mg QID home medication - 120mg Solumedrol IV in ED - 50mg Hydrocortisone q8h IV - Consult Neurology regarding Myasthenia Gravis - MRI Brain on 12: 1. Limited evaluation for metastatic disease without the use of IV contrast. 2. 5 x 5 mm focus of mildly increased T1 signal involving the medial aspect of the posterior right frontal lobe near the vertex adjacent to the falx cerebri as above is suspicious for possible melanoma metastasis. 3. No acute infarction identified. Respiratory: Hypoxemic respiratory failure requiring supplemental O2 - Respiratory status continuing to worsen --> Now requiring high flow oxygen with an FiO2 of 70% - CXR 04/20: Mildly worsened airspace opacities of the left upper lobe suggest ongoing pneumonia. - Chest CT: 1) Innumerable nodules throughout the lungs. Although nonspecific, extensive metastatic disease is favored. Metastatic melanoma could have this imaging appearance. Findings discussed with Dr. Lantigua at time of dictation. 2) Upper lobe predominant airspace opacity within the lungs which could reflect superimposed pneumonia. 3) Possible hypodense hepatic lesions which raise the possibility of metastatic disease. A contrast-enhanced CT of the abdomen and pelvis could be obtained. 4) Multiple small indeterminate but suspicious upper abdominal nodules/implants which favor metastatic disease. - ABG 7.45/ 43/ 62/ 30 - 120mg Solumedrol in ED, 50mg Hydrocortisone q8h IV - Narrow antibiotic spectrum to Zosyn (Day 3 of antibiotics) --> Vancomycin, Zosyn, and Levaquin (04/19-04/20 --> 2 days) - Tamiflu Prophylaxis - Currently on oxygen to maintain O2 sats > 90% - CPAP at night (COPD) - Lactic Acid 3.5 on admission - Influenza A & B negative - Mycoplasma pending - Procalcitonin normal (0.31) - Pulmonary following - Patient full code and consent obtained for Bronchoscopy, A-line, Central Line , Intubation, and Blood Transfusions CV: - Hemodynamically stable - Continue home Norvasc 5mg daily - Holding home HCTZ due to hypokalemia - Aspirin 81mg daily GI: - CT Abd/ Pelvis 04/20: Findings consistent with extensive metastatic disease with innumerable pulmonary and hepatic metastases and numerous soft tissue implants, including intramuscular metastases. This distribution raises the possibility of metastatic melanoma. - Transaminitis with concerning metastasis to the liver - Hepatitis panel - Protonix 40mg PO Daily - AHA Diet Renal: - Hypokalemia 3.1 --> 20 meq q4h - Holding home HCTZ - 40mEq of KCl in the ED - Daily BMP Endo: - Continue home Levothyroxine 50 mcg - TSH - 0.727 - Monitor blood sugars as patient on high dose steroid Heme/ ID: - Leukocytosis improving- 13.75 --> 10.81 --> 10.65 - Bilateral Airspace Opacities on CXR - Broad Spectrum Antibiotic coverage + Tamiflu prophylaxis - H/H: 13.7/44.1 -->12.0/33.9 --> 11.7/39.7 - Thrombocytosis- Platelets - 450 DVT Prophylaxis: - Hold Lovenox for biopsy tomorrow GI Prophylaxis: - Protonix Code Status: - Full Resuscitation Attending addendum. the pt was seen and examined independently , chart reviewed extensively, agreed with the above plan. the pt with metastatic lesions , chest, pelvic, abdomen , sc and intracranial as well. likely malignant , less likely to be inflammatory nor infectious. VSS, BP slightly elevated due to anxiety understandably. S1S2 RRR, lungs with basilar crackles. abdomen is benign, CCE. paraspinal and left gluteal lesions were not palpable. US at the bed side showed small lesion at the left breast area, difficult to manipulate with US , can be biopsied with 50/50 chance to yield a diagnosis. Plan: 1- multiple meetings tith the family and the pt took place, the pt finally voted for obtaining liver biopsy due to the risk of bronch biopsy with FIO2 of 70%. 2- appreciate onc consult. 3- US done personally showing a small left breast lesion , less likely to yield a diagnosis. 4- discuss with radiology to liver biopsy. the pt will be kept NPO post MN, IV over night. INR is 1.1 and off sc anticoagulation. discussed with the staff rounds in details. CCT 45 min. Consults & Procedures Consultants: Dr. Hodges Procedures: None Data Medications: Current Inpatient Medications Medications (Trade) Dose Ordered Sig/Kevin Route Start Time Stop Time Status Last Admin Dose Admin Acetaminophen (Tylenol Tab) 650 mg Q4H PRN PO 04/19/17 14:30 05/19/17 14:29 Ondansetron HCl (Zofran Inj) 4 mg Q6H PRN IV 04/19/17 14:30 05/19/17 14:29 Amlodipine Besylate (Norvasc Tab) 5 mg DAILY PO 04/20/17 09:00 05/20/17 08:59 04/21/17 08:28 5 MG Aspirin (Ecotrin Tab) 81 mg DAILY PO 04/20/17 09:00 05/20/17 08:59 04/21/17 08:28 81 MG Azathioprine (Imuran Tab) 50 mg DAILY PO 04/20/17 09:00 05/20/17 08:59 04/21/17 08:28 50 MG Levothyroxine Sodium (Synthroid Tab) 50 mcg DAILYBB PO 04/20/17 06:00 05/20/17 06:59 04/21/17 06:16 50 MCG Pyridostigmine [place] (Mestinon Tab) 60 mg QID PO 04/19/17 21:00 05/19/17 20:59 04/21/17 12:59 60 MG Pantoprazole Sodium (Protonix Tab) 40 mg DAILY PO 04/20/17 09:00 05/20/17 08:59 04/21/17 08:28 40 MG Glucose (Glucose 40% Gel) 15-30 GRAMS 15 GRAMS... UD PRN PO 04/19/17 17:15 05/19/17 17:14 Glucose (Glucose Chew Tab) 4-8 Tablets 4 Tabl... UD PRN PO 04/19/17 17:15 05/19/17 17:14 Dextrose (Dextrose 50% 50ML Syringe) 25-50ML OF 50% DW IV FOR... UD PRN IV 04/19/17 17:15 05/19/17 17:14 Glucagon (Glucagon Inj) 1 mg UD PRN SQ 04/19/17 17:15 05/19/17 17:14 Ioversol (Optiray 320) 100 ml UD PRN IV 04/19/17 17:45 04/23/17 17:44 Miscellaneous Information (Icu Protocol For Hyperglycemia) 1 ea PRN PRN N/A 04/19/17 19:45 04/21/17 19:44 Miscellaneous Information ( Icu Electrolyte Replacement Protocol) 1 ea per protocol PRN N/A 04/19/17 19:45 04/26/17 19:44 Piperacillin Sod/ Tazobactam Sod 3.375 gm/Dextrose 115 ml @ 28.75 mls/ hr Q8H IV 04/20/17 12:00 04/21/17 19:59 04/21/17 13:00 28.75 MLS/HR Piperacillin Sod/ Tazobactam Sod (Consult) 1 ea UD PRN N/A 04/20/17 06:45 05/20/17 06:44 Potassium Chloride (Lorena Sanchez Elix) 20 meq Q4H PO 04/21/17 12:30 04/21/17 16:31 04/21/17 13:00 20 MEQ Hydrocortisone Sodium Succinate 100 mg/Syringe 2 ml @ 4 mls/min Q8H IV 04/21/17 16:00 05/21/17 15:59 Vital Signs: Date Time Temp Pulse Resp B/P (MAP) Pulse Ox O2 Delivery O2 Flow Rate FiO2 04/21/17 12:00 High Flow Oxygen 50.0 04/21/17 12:00 36.4 84 20 136/82 (100) 92 High Flow Oxygen 50.0 04/21/17 10:00 36.5 79 20 150/84 (106) 90 High Flow Oxygen 50.0 04/21/17 08:00 High Flow Oxygen 65 04/21/17 08:00 36.5 75 21 152/80 (104) 91 High Flow Oxygen 50.0 04/21/17 08:00 High Flow Oxygen 50.0 04/21/17 06:00 76 20 148/85 (106) 90 High Flow Oxygen 45.0 04/21/17 04:00 CPAP 04/21/17 04:00 37.0 65 18 154/96 (115) 89 CPAP 04/21/17 02:00 55 19 129/77 (94) 94 CPAP 04/21/17 00:01 37.0 77 16 162/90 (114) 93 CPAP 04/20/17 23:59 CPAP 04/20/17 23:11 76 93 50 04/20/17 22:00 72 18 164/97 (119) 91 High Flow Oxygen 45.0 60 04/20/17 20:00 37.0 80 16 180/82 (114) 96 High Flow Oxygen 44.0 60 04/20/17 20:00 High Flow Oxygen 45.0 60 04/20/17 19:59 80 16 92 Nasal Cannula 45.0 60 04/20/17 18:00 84 22 172/99 (123) 92 High Flow Oxygen 44.0 60 04/20/17 16:19 88 20 91 Nasal Cannula 45.0 60 04/20/17 16:00 93 High Flow Oxygen 44.0 04/20/17 16:00 37.0 85 24 144/81 (102) 93 High Flow Oxygen 60 Laboratory Results: Last 24 Hours Test 04/20/17 22:38 04/21/17 05:53 04/21/17 11:11 Bedside Glucose 118 mg/dl 95 mg/dl White Blood Count 10.65 K/uL Red Blood Count 4.83 M/uL Hemoglobin 11.7 g/dL Hematocrit 39.7 % Mean Corpuscular Volume 82.2 fL Mean Corpuscular Hemoglobin 24.2 pg Mean Corpuscular Hemoglobin Concent 29.5 g/dl RDW Standard Deviation 52.1 fL RDW Coefficient of Variation 17.6 % Platelet Count 450 K/uL Mean Platelet Volume 9.5 fL Sodium Level 139 mmol/L Potassium Level 3.2 mmol/L Chloride Level 102 mmol/L Carbon Dioxide Level 31 mmol/L Anion Gap 6.0 mmol/L Blood Urea Nitrogen 22 mg/dl Creatinine 0.92 mg/dl Est Creatinine Clear Calc Drug Dose 77.7 ml/min Estimated GFR () 94.0 Estimated GFR (Non- 81.1 BUN/Creatinine Ratio 23.8 Random Glucose 86 mg/dl Calcium Level 8.0 mg/dl Phosphorus Level 2.6 mg/dl Magnesium Level 2.2 mg/dl Resident Tracking Resident Involvement: Resident Care Provided Care Provided: Adult [facility]
[2017-04-21] MEDS: HYDROCORTISONE IV 100 MG in SYRINGE 0 ML IV SCH (16:03)
--- NOTE | 2017-04-21 16:12 | Medical Consult ---
Consultation Date of Consultation: Apr 21, 2017. Attending Physician: Anjelica Rodriguez M.D. History of Present Illness Hematology/Oncology consult: Evaluation management for suspected metastatic disease involving the lungs, abdomen. Date of consultation: 04/21/2017 Consult requested by HPI: 76-year-old male, who has significant past medical history in the form of myasthenia gravis (he is on Pyridostigmine, azathioprine and prednisone), hypothyroidism, hypertension, polycythemia, [facility]ness of breath, found to have hypoxemia, he was then advised to go to [facility] ER for further evaluation management, has increasing cough, difficulty in breathing of 4 days duration, no hemoptysis, denies any increasing chest pain. Presently he is receiving oxygen therapy, imaging study showed innumerable bilateral lung nodules, liver lesions, metastatic implants involving the muscles. I saw him at bedside, sitting comfortably, has shortness of breath, cough with scanty white expectant but no hemoptysis, no chest pain, denies any abdominal discomfort, no leg edema, no bleeding from any sites. Last phlebotomy was done in March,. Earlier blood workup done for polycythemia showed normal EPO level, BRENDA 2 mutation was negative. 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 09/27/2016: A. Skin, right upper lateral back: Squamous cell carcinoma in situ, extending to one peripheral inked edge. B. Skin, right nasal sidewall: Malignant melanoma in situ, extending to the deep (along adnexa) and both peripheral inked edges (see synoptic report). C. Skin, left dorsal forearm: Squamous cell carcinoma in situ, extending to the deep and one peripheral inked edge. He had additional resection from the left side of the nasal sidewall on [address] Lopez. A. Skin, left inferior nasal sidewall (it should be right inferior nasal sidewall, will check with pathologist and with Dr. Lopez): Malignant melanoma in situ, lentigo maligna type, (see comment) Scar and inflammation consistent with prior procedure, (see comment) Comment: In the planes of section examined malignant melanoma in situ is not identified at an inked peripheral tissue edge of the specimen; however, scar extends to the peripheral tissue edge of the specimen. See prior specimen [id number] - Part B. B. Skin, left inferior nasal sidewall (it should be right inferior nasal sidewall, will check with the pathologist and with Dr. Lopez): Multifocal melanocytic hyperplasia with no definite Comment: No definite melanoma in situ is identified including on immunostains for [place]-1 (performed on blocks B1, B2, B3, and B4); however, multifocal melanocytic hyperplasia is present, which may represent melanocytic hyperplasia of chronically sun-damaged skin or a field of melanocytic dysplasia. Close clinical follow-up is recommended. Actinic keratosis is present in blocks B1, B2 , and B4, corresponding to A, B, and D, respectively. REVIEW OF SYSTEMS: GENERAL: No significant change in weight, no weakness, fatigue present, no fever, sweats or chills. SKIN: No skin rash, no bruising. HEAD: No new headache other than some mild frontal discomfort which could be sinus related, no dizziness. EYES: No recent change in the vision, no diplopia, EARS: No earache no tinnitus, NOSE: No epistaxis, No nasal discharge or stuffiness, MOUTH: No sores, no dysphagia, no hoarseness of voice, NECK: No lumps, No swelling in thyroid area. No stiffness. PULMONARY: Cough with scanty white expectant present, shortness of breath on minimal exertion present, no hemoptysis, no chest pain, No wheezing. CARDIOVASCULAR: No anginal chest pain, no PND, no orthopnea. No palpitation, no leg edema. No syncope. GASTROINTESTINAL: No abdominal pain, no nausea or vomiting. No diarrhea, No constipation. No blood in stool or black tarry stools. No abdominal distention. UROLOGIC: No burning urination. No hematuria. MUSCULOSKELETAL: No joint pain, No joint swelling, no muscle weakness. HEMATOLOGIC: No anemia, no bleeding disorder, No bruising. History of polycythemia as described above. Having intermittent phlebotomy. NEUROLOGIC: No seizures, no focal weakness, no speech difficulty, No memory disturbances. No tingling or numbness of the extremities. PSYCHIATRIC: No depression. No anxiety. No psychosis. Past medical and surgical history: As outlined above Social history: Former smoker, no ETOH abuse, Family history: Not significant Medications: Please review her his chart for detailed list of medications. Allergies: None On exam: - Alert and oriented x3, well built man, not in any distress. - HEENT: no icterus, no pallor, Throat: Normal. - Neck: No palpable cervical lymphadenopathy. - Abdomen: soft, nontender, no hepatomegaly, no splenomegaly. - No focal neuro deficit. - Extremities: no finger clubbing, no leg edema. Lab: -WBC 18,700, H&H of 13.7/44, Platelet count of 516,000 (04/19/2017) -WBC 86596, H&H of 11.7/39, Platelet count of 450,000 (04/21/2017) -BUN/Creat: 17/1.1, total bilirubin 1.1, direct bilirubin 0.4, AST 128, ALT 89 , alkaline phosphatase 165, (04/19/2017) - lactic acid of 3.9--> 2.7 -procalcitonin--> 0.31 - Prothrombin time--> 10.7 Imaging: -CT scan of the chest done on 04/19/2017--> her dense of pulmonary emboli, innumerable pulmonary nodules, airspace opacity which could be superimposed pneumonia. Mild mediastinal lymphadenopathy. -CT scan of the abdomen pelvis done on 04/19/2017--> innumerable lung and hepatic metastatic disease, numerous soft tissue implants including may intramuscular metastatic implants noted. -MRI of the brain done on 04/20/2017 without contrast --> Large calcification of the falx cerebri is noted adjacent to the frontal lobes, 3.3 x 0.8 x 1.7 cm. The midline structures including the corpus callosum, brainstem, optic chiasm, pineal gland and cerebellar tonsils are unremarkable the sagittal T1 series. Evaluation for the metastatic disease limited because of lack of intravenous contrast. 5 x 5 mm focus of increased T1 signal noted involving the medial aspect of the posterior right frontal lobe near the vertex, ASSESSMENT AND PLAN: 76-year-old the male, who has few comorbid conditions as outlined above, including myasthenia gravis and the polycythemia, JAK2 mutation negative, normal EPO level, having intermittent phlebotomy, had melanoma in- situ removed from the right nasal sidewall, had additional resection, no invasive melanoma noted (Sep, 2016), also had squamous cell carcinoma in-situ removed from the right upper back and left dorsum of the hand recently in Sep, 2016. Now he is admitted in hospital for increasing shortness of breath, found to have innumerable lung nodules, liver lesions, implants in the abdomen as well as intramuscular metastatic deposits which has raised the possibility of widespread metastatic disease, has slightly abnormal liver function test. It would be unusual to have widespread metastatic melanoma with only just the melanoma in-situ was removed from the right side of the nose. We need tissue diagnosis for further evaluation and management in his case but looking at recent imaging studies, it appears that he has significant metastatic disease involving the lungs and liver, also may have possible brain metastatic disease. We could consider for biopsy of the lung (bronchoscopic evaluation) or biopsy of the liver, I would leave up to the treating team to decide about getting biopsy in his case. Thanks for the consultation. Dr. Elie Duke Hem/Onc (This note was completed using the dictation program Fluency Direct. As such, there may be misspellings, word substitutions, or other variations that should not change the essence of the clinical content of this encounter note. If there is need for further clarification, please direct questions to the provider listed above.) Past Medical/Surgical History Medical Problems: (1) Bilateral pneumonia Status: Acute (2) Hypoxia Status: Acute (3) Myasthenia gravis Status: Acute Social History Smoking Status: Former Smoker Smokeless Tobacco Use: No Drug Use: none Marital Status: Housing Status: lives with family Allergies Coded Allergies: No Known Allergies (Unverified , 04/19/17) Current Inpatient Medications Current Inpatient Medications Medications (Trade) Dose Ordered Sig/Kevin Route Start Time Stop Time Status Last Admin Dose Admin Acetaminophen (Tylenol Tab) 650 mg Q4H PRN PO 04/19/17 14:30 05/19/17 14:29 Ondansetron HCl (Zofran Inj) 4 mg Q6H PRN IV 04/19/17 14:30 05/19/17 14:29 Amlodipine Besylate (Norvasc Tab) 5 mg DAILY PO 04/20/17 09:00 05/20/17 08:59 04/21/17 08:28 5 MG Aspirin (Ecotrin Tab) 81 mg DAILY PO 04/20/17 09:00 05/20/17 08:59 04/21/17 08:28 81 MG Azathioprine (Imuran Tab) 50 mg DAILY PO 04/20/17 09:00 05/20/17 08:59 04/21/17 08:28 50 MG Levothyroxine Sodium (Synthroid Tab) 50 mcg DAILYBB PO 04/20/17 06:00 05/20/17 06:59 04/21/17 06:16 50 MCG Pyridostigmine [place] ([place] Tab) 60 mg QID PO 04/19/17 21:00 05/19/17 20:59 04/21/17 12:59 60 MG Pantoprazole Sodium (Protonix Tab) 40 mg DAILY PO 04/20/17 09:00 05/20/17 08:59 04/21/17 08:28 40 MG Glucose (Glucose 40% Gel) 15-30 GRAMS 15 GRAMS... UD PRN PO 04/19/17 17:15 05/19/17 17:14 Glucose (Glucose Chew Tab) 4-8 Tablets 4 Tabl... UD PRN PO 04/19/17 17:15 05/19/17 17:14 Dextrose (Dextrose 50% 50ML Syringe) 25-50ML OF 50% DW IV FOR... UD PRN IV 04/19/17 17:15 05/19/17 17:14 Glucagon (Glucagon Inj) 1 mg UD PRN SQ 04/19/17 17:15 05/19/17 17:14 Ioversol (Optiray 320) 100 ml UD PRN IV 04/19/17 17:45 04/23/17 17:44 Miscellaneous Information (Icu Protocol For Hyperglycemia) 1 ea PRN PRN N/A 04/19/17 19:45 04/21/17 19:44 Miscellaneous Information ( Icu Electrolyte Replacement Protocol) 1 ea per protocol PRN N/A 04/19/17 19:45 04/26/17 19:44 Piperacillin Sod/ Tazobactam Sod 3.375 gm/Dextrose 115 ml @ 28.75 mls/ hr Q8H IV 04/20/17 12:00 04/21/17 19:59 04/21/17 13:00 28.75 MLS/HR Piperacillin Sod/ Tazobactam Sod (Consult) 1 ea UD PRN N/A 04/20/17 06:45 05/20/17 06:44 Potassium Chloride (Lorena Ciel Elix) 20 meq Q4H PO 04/21/17 12:30 04/21/17 16:31 04/21/17 13:00 20 MEQ Hydrocortisone Sodium Succinate 100 mg/Syringe 2 ml @ 4 mls/min Q8H IV 04/21/17 16:00 05/21/17 15:59 Cholecalciferol (Vitamin D Tab) 2,000 inter.unit DAILY PO 04/22/17 09:00 05/22/17 08:59 Physical Exam Date Time Temp Pulse Resp B/P (MAP) Pulse Ox O2 Delivery O2 Flow Rate FiO2 04/21/17 12:00 High Flow Oxygen 50.0 04/21/17 12:00 36.4 84 20 136/82 (100) 92 High Flow Oxygen 50.0 04/21/17 10:00 36.5 79 20 150/84 (106) 90 High Flow Oxygen 50.0 04/21/17 08:00 High Flow Oxygen 65 04/21/17 08:00 36.5 75 21 152/80 (104) 91 High Flow Oxygen 50.0 04/21/17 08:00 High Flow Oxygen 50.0 04/21/17 06:00 76 20 148/85 (106) 90 High Flow Oxygen 45.0 04/21/17 04:00 CPAP 04/21/17 04:00 37.0 65 18 154/96 (115) 89 CPAP 04/21/17 02:00 55 19 129/77 (94) 94 CPAP 04/21/17 00:01 37.0 77 16 162/90 (114) 93 CPAP 04/20/17 23:59 CPAP 04/20/17 23:11 76 93 50 04/20/17 22:00 72 18 164/97 (119) 91 High Flow Oxygen 45.0 60 04/20/17 20:00 37.0 80 16 180/82 (114) 96 High Flow Oxygen 44.0 60 12/10/17 20:00 High Flow Oxygen 45.0 60 04/20/17 19:59 80 16 92 Nasal Cannula 45.0 60 04/20/17 18:00 84 22 172/99 (123) 92 High Flow Oxygen 44.0 60 04/20/17 16:19 88 20 91 Nasal Cannula 45.0 60 Laboratory Results Last 24 Hours Test 04/20/17 22:38 04/21/17 05:53 04/21/17 11:11 Bedside Glucose 118 mg/dl 95 mg/dl White Blood Count 10.65 K/uL Red Blood Count 4.83 M/uL Hemoglobin 11.7 g/dL Hematocrit 39.7 % Mean Corpuscular Volume 82.2 fL Mean Corpuscular Hemoglobin 24.2 pg Mean Corpuscular Hemoglobin Concent 29.5 g/dl RDW Standard Deviation 52.1 fL RDW Coefficient of Variation 17.6 % Platelet Count 450 K/uL Mean Platelet Volume 9.5 fL Sodium Level 139 mmol/L Potassium Level 3.2 mmol/L Chloride Level 102 mmol/L Carbon Dioxide Level 31 mmol/L Anion Gap 6.0 mmol/L Blood Urea Nitrogen 22 mg/dl Creatinine 0.92 mg/dl Est Creatinine Clear Calc Drug Dose 77.7 ml/min Estimated GFR () 94.0 Estimated GFR (Non- 81.1 BUN/Creatinine Ratio 23.8 Random Glucose 86 mg/dl Calcium Level 8.0 mg/dl Phosphorus Level 2.6 mg/dl Magnesium Level 2.2 mg/dl
--- NOTE | 2017-04-21 16:32 | PROGRESS NOTE ---
DATE: 04/21/2017 SUBJECTIVE: Stephane looks pretty stable today. His respiratory function is precarious. He is being seen by a number of specialists. He done an MRI, unfortunately done without contrast that shows a 5 x 5 mm lesion in parasagittal region, which may be a metastatic deposit but might not be and this is going to need amplified with a further study down the line using contrast. The major issue is trying to get a tissue diagnosis. There is an assumption that this is a metastatic melanoma,and it may well be, but he has had other carcinomas including thyroid, prostate or has had at least a colonic polyp and I am suspicious that this is an adenocarcinoma of GI origin or of unknown primary Whatever the case, his myasthenia is stable. I do not see any fatigable ptosis today. His eye movements are normal, speech is relatively clear, there is no proximal weakness and he is being covered with his usual myasthenic medications plus hydrocortisone. I will check back with him tomorrow. For now, I would not make any changes in his neurologic management. USMAN
--- NOTE | 2017-04-21 18:59 | Progress Note ---
Medicine Progress Note Date & Time of Visit: Apr 21, 2017 at 18:41. Subjective Pt was seen and examined Lying in bed with family members at bedside Pt said that he feels a little better He is going to talk to family to decide for possible lung or liver biopsy of the lesions found on CT Denies any chest pain, palpitation, dizziness and fever. Objective Last 8 Hrs Date Time Temp Pulse Resp B/P (MAP) Pulse Ox O2 Delivery O2 Flow Rate FiO2 04/21/17 18:00 36.5 77 20 159/86 (110) 93 High Flow Oxygen 50.0 04/21/17 16:00 36.5 70 20 136/80 (98) 92 High Flow Oxygen 50.0 04/21/17 16:00 High Flow Oxygen 50.0 04/21/17 14:00 75 22 161/83 (109) 92 High Flow Oxygen 50.0 04/21/17 12:00 High Flow Oxygen 50.0 04/21/17 12:00 36.4 84 20 136/82 (100) 92 High Flow Oxygen 50.0 Physical Exam: General- no acute distress Head- atraumatic Eyes- PERRL, EOMI ENT- oropharynx clear Neck- supple, no JVD Lungs- Decrease BS, +crackles Heart- regular rhythm Abdomen- normal bowel sounds, soft Extremities- no calf tenderness Neuro- alert, oriented x 3; PERRL, EOMI; no facial palsy; no dysarthria Skin- warm & dry Laboratory Results: Last 24 Hours Test 04/20/17 22:38 04/21/17 05:53 04/21/17 11:11 Bedside Glucose 118 mg/dl 95 mg/dl White Blood Count 10.65 K/uL Red Blood Count 4.83 M/uL Hemoglobin 11.7 g/dL Hematocrit 39.7 % Mean Corpuscular Volume 82.2 fL Mean Corpuscular Hemoglobin 24.2 pg Mean Corpuscular Hemoglobin Concent 29.5 g/dl RDW Standard Deviation 52.1 fL RDW Coefficient of Variation 17.6 % Platelet Count 450 K/uL Mean Platelet Volume 9.5 fL Sodium Level 139 mmol/L Potassium Level 3.2 mmol/L Chloride Level 102 mmol/L Carbon Dioxide Level 31 mmol/L Anion Gap 6.0 mmol/L Blood Urea Nitrogen 22 mg/dl Creatinine 0.92 mg/dl Est Creatinine Clear Calc Drug Dose 77.7 ml/min Estimated GFR () 94.0 Estimated GFR (Non- 81.1 BUN/Creatinine Ratio 23.8 Random Glucose 86 mg/dl Calcium Level 8.0 mg/dl Phosphorus Level 2.6 mg/dl Magnesium Level 2.2 mg/dl Assessment & Plan Acute Hypoxic Respiratory Failure PNEUMONIA CTA chest showed Innumerable nodules throughout the lungs. Although nonspecific , extensive metastatic disease is favored. Upper lobe predominant airspace opacity within the lungs. NO PE identified has been on high flow oxygen and CPAP at night negative for flu Elevated lactic acid and WBC Continue IV Vancomycin, D/C Zosyn, and Levaquin Procalcitonin wnl Continue monitor in the ICU Clinically improved Stable Pulmonary/Liver nodules Unknown primary source Doubt about metastatic melanoma Pt has previous hx of prostate cancer/ thyroid mass CT of the chest/abdomen/pelvis suggest metastatic disease to the lung and liver MRI head wi/o contrast showed 5 x 5 mm focus of mildly increased T1 signal involving the medial aspect posterior right frontal lobe suspicious for possible melanoma metastasis. Hem/Onc on board, will wait for biopsy result Bronch is too high risk to perform to get a sample from the lung due to his High flow oxygen Pt decided to get biopsy of the liver NPO after midnight for the u/s guided biopsy tomorrow Lactic Acidosis Mostly due to hypoxia Elevated WBC on admission, trending down Lactic acid continue stay elevated On IVF procalcitonin wnl Continue broad spectrum abx Continue monitor Myasthenia Gravis no muscle weakness detected at this time continue Mestinon, Azathioprine and hydrocortisone IV Neurology on board Stable HTN continue amlodipine Hypokalemia K 3.2 Potassium replaced Continue monitor BMP Hypothyroidism TSH WNL continue Synthroid DVT ppx Lovenox on hold for the biopsy FULL CODE Consultants: Client Leader Neuro Hem/Oncology Pulmonary Current Inpatient Medications: Current Inpatient Medications Medications (Trade) Dose Ordered Sig/Kevin Route Start Time Stop Time Status Last Admin Dose Admin Acetaminophen (Tylenol Tab) 650 mg Q4H PRN PO 04/19/17 14:30 05/19/17 14:29 Ondansetron HCl (Zofran Inj) 4 mg Q6H PRN IV 04/19/17 14:30 05/19/17 14:29 Amlodipine Besylate (Norvasc Tab) 5 mg DAILY PO 04/20/17 09:00 05/20/17 08:59 04/21/17 08:28 5 MG Aspirin (Ecotrin Tab) 81 mg DAILY PO 04/20/17 09:00 05/20/17 08:59 04/21/17 08:28 81 MG Azathioprine (Imuran Tab) 50 mg DAILY PO 04/20/17 09:00 05/20/17 08:59 04/21/17 08:28 50 MG Levothyroxine Sodium (Synthroid Tab) 50 mcg DAILYBB PO 04/20/17 06:00 05/20/17 06:59 04/21/17 06:16 50 MCG Pyridostigmine [place] (Mestinon Tab) 60 mg QID PO 04/19/17 21:00 05/19/17 20:59 04/21/17 17:18 60 MG Pantoprazole Sodium (Protonix Tab) 40 mg DAILY PO 04/20/17 09:00 05/20/17 08:59 04/21/17 08:28 40 MG Glucose (Glucose 40% Gel) 15-30 GRAMS 15 GRAMS... UD PRN PO 04/19/17 17:15 05/19/17 17:14 Glucose (Glucose Chew Tab) 4-8 Tablets 4 Tabl... UD PRN PO 04/19/17 17:15 05/19/17 17:14 Dextrose (Dextrose 50% 50ML Syringe) 25-50ML OF 50% DW IV FOR... UD PRN IV 04/19/17 17:15 05/19/17 17:14 Glucagon (Glucagon Inj) 1 mg UD PRN SQ 04/19/17 17:15 05/19/17 17:14 Ioversol (Optiray 320) 100 ml UD PRN IV 04/19/17 17:45 04/23/17 17:44 Miscellaneous Information (Icu Protocol For Hyperglycemia) 1 ea PRN PRN N/A 04/19/17 19:45 04/21/17 19:44 Miscellaneous Information ( Icu Electrolyte Replacement Protocol) 1 ea per protocol PRN N/A 04/19/17 19:45 04/26/17 19:44 Piperacillin Sod/ Tazobactam Sod 3.375 gm/Dextrose 115 ml @ 28.75 mls/ hr Q8H IV 04/20/17 12:00 04/21/17 19:59 04/21/17 13:00 28.75 MLS/HR Piperacillin Sod/ Tazobactam Sod (Consult) 1 ea UD PRN N/A 04/20/17 06:45 05/20/17 06:44 Hydrocortisone Sodium Succinate 100 mg/Syringe 2 ml @ 4 mls/min Q8H IV 04/21/17 16:00 05/21/17 15:59 04/21/17 16:03 4 MLS/MIN Cholecalciferol (Vitamin D Tab) 2,000 inter.unit DAILY PO 04/22/17 09:00 05/22/17 08:59
[2017-04-21 20:55] LABS: CALCIUM 8.4 mg/dl (8.5-10.1); CREATININE 1.06 mg/dl (0.60-1.40); POTASSIUM 4.4 mmol/L (3.5-5.1)
[2017-04-22] VITALS (15 sets, daily range): BP systolic 110–171; BP diastolic 70–96; PULSE 51–96; TEMP 36–36.7; O2SAT 93–99
[2017-04-22] MEDS: HYDROCORTISONE IV 100 MG in SYRINGE 0 ML IV SCH ×2 (00:26→07:53)
[2017-04-22 05:43] LABS: HEMATOCRIT 39.5 % (42-52); HEMOGLOBIN 11.5 g/dL (14.0-18.0); MEAN CELL VOLUME 83.3 fL (80-100); MEAN CORPUSCULAR HEMOGLOBIN 24.3 pg (25-34); MEAN CORPUSCULAR HGB CONC 29.1 g/dl (32-36); MEAN PLATELET VOLUME 9.5 fL (7.4-10.4); PLATELET COUNT 406 K/uL (130-400); RED CELL DISTRIBUTION WIDTH CV 17.3 % (11.5-14.5); RED CELL DISTRIBUTION WIDTH SD 52.4 fL (36.4-46.3); WHITE BLOOD COUNT 9.06 K/uL (4.8-10.8)
[2017-04-22 06:22] LABS: CALCIUM 8.4 mg/dl (8.5-10.1); CREATININE 0.88 mg/dl (0.60-1.40); POTASSIUM 4.2 mmol/L (3.5-5.1)
[2017-04-22 06:27] LABS: PHOSPHORUS 3.2 mg/dl (2.5-4.9)
[2017-04-22] MEDS: LEVOTHYROXINE 50 MCG TAB PO SCH (06:38)
--- NOTE | 2017-04-22 09:20 | DIAGNOSTIC IMAGING REPORT ---
ULTRASOUND GUIDED FINE-NEEDLE ASPIRATION BIOPSY OF A LEFT HIP INTRAMUSCULAR MASS CLINICAL HISTORY: Metastatic disease with multiple pulmonary masses, liver masses, and intramuscular masses. COMPARISON STUDY: CT scan dated 04/19/2017 FINDINGS: A timeout was performed. The risks the procedure were explained the patient and informed consent was obtained. A brief survey ultrasound was performed. This revealed multiple hepatic masses, intra-abdominal mass adjacent to the descending colon, as well as an intramuscular mass in the region of the left hip. For safety concerns it was decided to sample the left hip lesion. The patient was prepped and draped in sterile fashion. The skin was anesthetized 1% lidocaine. Under ultrasound guidance, the intramuscular left hip mass was sampled x3 with a 25-gauge needle. Initial pathologic review indicates satisfactory material for diagnosis. IMPRESSION: 1. Successful ultrasound-guided fine-needle aspiration biopsy of an intramuscular left hip mass. Electronically signed by: Miguel Barba M.D. 04/22/2017 9:18 AM Dictated Date/Time: 04/22/2017 9:16 AM
[2017-04-22 09:48] LABS: HEPATITIS A IGM TC 51813E NON-REACTIVE (NON-REACTIVE); HEPATITIS B CORE IGM TC51854R NON-REACTIVE (NON-REACTIVE)
[2017-04-22] MEDS: ASPIRIN 81 MG ECTAB PO SCH (09:57)
[2017-04-22] MEDS: PYRIDOSTIGMINE BROMIDE 60 MG TAB PO SCH ×4 (09:58→20:22)
[2017-04-22] MEDS: AZATHIOPRINE 50 MG TAB PO SCH (09:58)
[2017-04-22] MEDS: AMLODIPINE BESYLATE 5 MG TAB PO SCH (09:58)
[2017-04-22] MEDS: PANTOprazole SOD 40 MG TAB PO SCH (09:58)
[2017-04-22] MEDS: CHOLECALCIFEROL 1000 INTER.UNIT TAB PO SCH (09:59)
--- NOTE | 2017-04-22 10:53 | Palliative Care Progress Note ---
Palliative Care Progress Note Date of Service Apr 22, 2017. Subjective Pt evaluation today including: conversation w/ patient Pain: none PO Intake: tolerating diet Met with patient briefly today after his ultrasound-guided biopsy in room 105. Patient is awake, alert and oriented. He feels his breathing is better. Still on high-flow nasal cannula at 70% FiO2, but oxygen saturation increased to 94% today from 90% yesterday. Patient completed living will yesterday with service excellence. Son, Danilo Shaikh (Stephane Shaikh Jr.) named as primary health care agent with his Margarita (Harmony) and daughter Brandy as alternatives. At end stage, patient would not want any heroic measures. For now, he remains a level one full code. Patient stated, "If this is melanoma, I know it's not good. I've done my research, I know it's the hardest to treat." I will continue to follow along to provide support.
--- NOTE | 2017-04-22 11:12 | Pulmonology Progress Note ---
Pulmonary Progress Note Date of Service Apr 22, 2017. Attending Dr. Lyman Subjective Patient is feeling slightly improved from a respiratory standpoint this morning. He states that he feels he is moving air better and is coughing up some sputum this morning. Patient is s/p U/S guided fine-needle aspiration bx of intramuscular left hip mass this morning. Patient's appetite today is improved. Blood cultures: NGTD Sputum cx: moderate normal tam MRSA nasal swab negative. Labs reviewed: Creatinine 0.88 BUN 23 WBC 9.[address] 406 Hep A,B, and C serology negative. Urine legionella Ag negative. Objective VS reviewed: Afebrile HR 51-96 bpm RR 18-26 bpm SaO2 93-94% on high flow at O2 rate of 45 with FiO2 of 60 ULTRASOUND GUIDED FINE-NEEDLE ASPIRATION BIOPSY OF A LEFT HIP INTRAMUSCULAR MASS CLINICAL HISTORY: Metastatic disease with multiple pulmonary masses, liver masses, and intramuscular masses. COMPARISON STUDY: CT scan dated 04/19/2017 FINDINGS: A timeout was performed. The risks the procedure were explained the patient and informed consent was obtained. A brief survey ultrasound was performed. This revealed multiple hepatic masses, intra-abdominal mass adjacent to the descending colon, as well as an intramuscular mass in the region of the left hip. For safety concerns it was decided to sample the left hip lesion. The patient was prepped and draped in sterile fashion. The skin was anesthetized 1% lidocaine. Under ultrasound guidance, the intramuscular left hip mass was sampled x3 with a 25-gauge needle. Initial pathologic review indicates satisfactory material for diagnosis. IMPRESSION: 1. Successful ultrasound-guided fine-needle aspiration biopsy of an intramuscular left hip mass. General: Patient is awake, alert, cooperative, and in no acute distress. Well developed. Head: Normocephalic, Atraumatic. ENT: PERRLA, No discharge, EOMI, Sclera normal Neck: Normal ROM. Trachea midline. No stridor Respiratory: Slightly decreased breath sounds RLL. High flow O2 in place on exam. No respiratory distress. No accessory muscle use. Cardiovascular: Regular rate and rhythm. Abdomen: Nontender to palpation. Normal bowel sounds hear throughout. No guarding. Abdomen is soft and nontender. Extremities: No edema, cyanosis. Normal ROM Neuro: Alert, Oriented x 3. CN II-XII grossly intact. Sensation and motor function grossly intact. Psych: Mood and affect are normal. Assessment & Plan Hypoxic respiratory failure with multiple pulmonary nodules: 1. Hypoxia: Likely associated with tumor emboli to the lung. High flow oxygen is maintaining oxygen saturation currently. Can attempt to taper O2 flow rate/ FiO2 as patient tolerates. Feel that he likely will need continued supplementation. Continue abx pending further workup and improvement. 2. Pulmonary nodules: Still can consider bronchoscopic evaluation if necessary , but will await pathology results of U/S guided bx from this AM. Likely this is metastatic disease, but differential dx includes atypical infection as well as metastatic melanoma, atypical lymphoid tumors, etc. 3. Tracheostomy: If patient decompensates and requires intubation- consider early tracheostomy for stability. We will continue to follow Patient seen and case reviewed and agreed with the plan. Data Medications: Current Inpatient Medications Medications (Trade) Dose Ordered Sig/Kevin Route Start Time Stop Time Status Last Admin Dose Admin Acetaminophen (Tylenol Tab) 650 mg Q4H PRN PO 04/19/17 14:30 05/19/17 14:29 Ondansetron HCl (Zofran Inj) 4 mg Q6H PRN IV 04/19/17 14:30 05/19/17 14:29 Amlodipine Besylate (Norvasc Tab) 5 mg DAILY PO 04/20/17 09:00 05/20/17 08:59 04/22/17 09:58 5 MG Aspirin (Ecotrin Tab) 81 mg DAILY PO 04/20/17 09:00 05/20/17 08:59 04/22/17 09:57 81 MG Azathioprine (Imuran Tab) 50 mg DAILY PO 04/20/17 09:00 05/20/17 08:59 04/22/17 09:58 50 MG Levothyroxine Sodium (Synthroid Tab) 50 mcg DAILYBB PO 04/20/17 06:00 05/20/17 06:59 04/22/17 06:38 50 MCG Pyridostigmine [place] (Mestinon Tab) 60 mg QID PO 04/19/17 21:00 05/19/17 20:59 04/22/17 09:58 60 MG Pantoprazole Sodium (Protonix Tab) 40 mg DAILY PO 04/20/17 09:00 05/20/17 08:59 04/22/17 09:58 40 MG Glucose (Glucose 40% Gel) 15-30 GRAMS 15 GRAMS... UD PRN PO 04/19/17 17:15 05/19/17 17:14 Glucose (Glucose Chew Tab) 4-8 Tablets 4 Tabl... UD PRN PO 04/19/17 17:15 05/19/17 17:14 Dextrose (Dextrose 50% 50ML Syringe) 25-50ML OF 50% DW IV FOR... UD PRN IV 04/19/17 17:15 05/19/17 17:14 Glucagon (Glucagon Inj) 1 mg UD PRN SQ 04/19/17 17:15 05/19/17 17:14 Ioversol (Optiray 320) 100 ml UD PRN IV 04/19/17 17:45 04/23/17 17:44 Miscellaneous Information ( Icu Electrolyte Replacement Protocol) 1 ea per protocol PRN N/A 04/19/17 19:45 04/26/17 19:44 Piperacillin Sod/ Tazobactam Sod (Consult) 1 ea UD PRN N/A 04/20/17 06:45 05/20/17 06:44 Cholecalciferol (Vitamin D Tab) 2,000 inter.unit DAILY PO 04/22/17 09:00 05/22/17 08:59 04/22/17 09:59 2,000 INTER.UNIT Methylprednisolone Sodium Succinate 40 mg/Syringe 0.64 ml @ 1.5 mls/min Q12@0900,2100 IV 04/22/17 21:00 05/22/17 20:59 Piperacillin Sod/ Tazobactam Sod 3.375 gm/Dextrose 115 ml @ 200 mls/hr Q6 IV 04/22/17 12:00 04/29/17 11:59 UNV Vital Signs: Date Time Temp Pulse Resp B/P (MAP) Pulse Ox O2 Delivery O2 Flow Rate FiO2 04/22/17 10:00 96 26 135/84 (101) 94 High Flow Oxygen 45.0 60 04/22/17 08:00 93 High Flow Oxygen 60 04/22/17 08:00 36.0 71 24 143/90 (107) 93 High Flow Oxygen 45.0 60 04/22/17 08:00 High Flow Oxygen 45 04/22/17 06:00 57 18 110/70 (83) 94 High Flow Oxygen 45.0 60 04/22/17 04:00 36.6 51 16 114/73 (87) 95 CPAP 04/22/17 04:00 CPAP 04/22/17 02:00 57 17 144/85 (104) 94 CPAP 04/22/17 00:33 69 95 50 04/22/17 00:01 36.5 68 19 136/81 (99) 95 High Flow Oxygen 50.0 60 04/21/17 23:59 High Flow Oxygen 50.0 60 04/21/17 22:00 69 18 138/85 (102) 95 High Flow Oxygen 50.0 60 04/21/17 20:00 36.6 70 18 157/90 (112) 95 High Flow Oxygen 50.0 60 04/21/17 20:00 High Flow Oxygen 50.0 60 04/21/17 18:00 36.5 77 20 159/86 (110) 93 High Flow Oxygen 50.0 04/21/17 16:00 36.5 70 20 136/80 (98) 92 High Flow Oxygen 50.0 04/21/17 16:00 High Flow Oxygen 50.0 04/21/17 14:00 75 22 161/83 (109) 92 High Flow Oxygen 50.0 04/21/17 12:00 High Flow Oxygen 50.0 04/21/17 12:00 36.4 84 20 136/82 (100) 92 High Flow Oxygen 50.0 Laboratory Results: Last 24 Hours Test 04/21/17 11:11 04/21/17 16:06 04/21/17 20:23 04/21/17 20:57 Bedside Glucose 95 mg/dl 108 mg/dl 109 mg/dl Sodium Level 141 mmol/L Potassium Level 4.4 mmol/L Chloride Level 103 mmol/L Carbon Dioxide Level 33 mmol/L Anion Gap 5.0 mmol/L Blood Urea Nitrogen 22 mg/dl Creatinine 1.06 mg/dl Est Creatinine Clear Calc Drug Dose 67.5 ml/min Estimated GFR () 79.2 Estimated GFR (Non- 68.3 BUN/Creatinine Ratio 20.3 Random Glucose 115 mg/dl Calcium Level 8.4 mg/dl Test 04/22/17 05:06 White Blood Count 9.06 K/uL Red Blood Count 4.74 M/uL Hemoglobin 11.5 g/dL Hematocrit 39.5 % Mean Corpuscular Volume 83.3 fL Mean Corpuscular Hemoglobin 24.3 pg Mean Corpuscular Hemoglobin Concent 29.1 g/dl RDW Standard Deviation 52.4 fL RDW Coefficient of Variation 17.3 % Platelet Count 406 K/uL Mean Platelet Volume 9.5 fL Sodium Level 140 mmol/L Potassium Level 4.2 mmol/L Chloride Level 104 mmol/L Carbon Dioxide Level 31 mmol/L Anion Gap 5.0 mmol/L Blood Urea Nitrogen 23 mg/dl Creatinine 0.88 mg/dl Est Creatinine Clear Calc Drug Dose 81.3 ml/min Estimated GFR () 97.4 Estimated GFR (Non- 84.0 BUN/Creatinine Ratio 25.6 Random Glucose 104 mg/dl Calcium Level 8.4 mg/dl Phosphorus Level 3.2 mg/dl Magnesium Level 2.2 mg/dl
[2017-04-22] MEDS ORDERED: PIPERACILL/TAZOBAC IV 3.375 GM in DEXTROSE 5% 100ML 100 ML IV SCH (12:00)
--- NOTE | 2017-04-22 12:38 | Progress Note ---
Internal Med Progress Note Date of Service: Apr 22, 2017. Provider Documentation: SUBJECTIVE: sitting on bed , conversing , on High flow 02 , being titrated down by Engine Hostler spo02 remains in 97 % talking in full sentences , no respiratory distress says has no Shortness of breath , having scant sputum production with cough no chest pain , no orthopnea afebrile OBJECTIVE: Vital Signs-as noted below Exam: General-well appearing male, comfortable , no sign of respiratory distress Eyes-sclera non icteric , PERRLA/EOMI ENT-High flow 02 via nasal canula Neck-no JVD Lungs-diminished breath sound with + rales /crackles on rt , better air entry on left , no wheeze noted Heart-regular S1/S2 , no JVD , no lower ext edema Abdomen-soft , non tender Extremities-no rash or deformity Neuro-AAO x3, no focal neurological deficit Lab data as noted below. ASSESSMENT & PLAN: ACUTE HYPOXEMIC RESPIRATORY FAILURE : presented with progressive SOB /ARIAS , hypoxic in RA spo2 80% admitted to ICU for respiratory support on High flow 02 required Fio2 70-80% to maintain adequate 02 saturation CTA chest showed Innumerable nodules throughout the lungs. Although nonspecific , extensive metastatic disease is favored. Upper lobe predominant airspace opacity within the lungs. NO PE identified appreciate input from Engine Hostler and Top Cleaner pt given IV steroids for bronchospasm, Neb tx respiratory status gradually improving pt will eventually need bronchoscopic biopsy of nodule for definitive dx respiratory status has to be optimized prior to Bronch procedure feels less SOB , Spo2 in 97-99 % started to wean down Fio2 to 60 % stable to be transferred out of ICU COMMUNITY ACQUIRED PNEUMONIA left upper lobe airspace density noted CT chest Cxray 04/20 mildly worsened airspace opacities on the left upper lobe suggestive of ongoing pneumonia has minimum cough negative for Influenza A and B no evidence of sepsis normal Prolactin level ( 0.31) . leukocytosis has resolved elevated Lactic acid - tissue hypoxemia due to respiratory failure -improved empiric abx with Zosyn ( day # 4 ) for Community acquired pneumonia ( ist day of therapy 04/19/17 ) was on vancomycin /Zosyn /Levaquin ( 04/19-04/20 ) 2 days will be transitioned to Oral Abx in next 24-48 hrs if respiratory status continues to improve total 5-7 days of tx should be adequate METASTATIC LUNG /LIVER AND SUB CUTANEOUS NODULE : Unknown primary source hx of melanoma/ previous hx of prostate cancer/ thyroid mass Malignant Melanoma in situ s/p rt nasal side wall removal on 09/27/[address] [facility] in [facility] had additional resection from the left side of nasal sidewall on 10/10/2016 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 stable Heme onc following HTN BP stable continue amlodipine HCTZ on hold for hypokalemia Hypothyroidism TSH WNL _ 0.727 continue Synthroid FULL CODE Patient completed living Son, Danilo Shaikh (Stephane Shaikh Jr.) named as primary health care agent / Margarita (Harmony) and daughter Brandy as alternatives. At end stage, patient would not want any heroic measures. For now, he remains a level one full code. DVT PROPHYLAXIS moderate risk due to possible metastatic disease sub q Lovenox on hold for biopsy today will be resumed tomorrow DISPOSITION expected to be discharged home when medically stable PT/OT eval prior to discharge Medicine follow up with Dr Hernandez will need Heme Onc follow up with Dr Elie Duke will need Pulmonary follow up with Dr Lyman Consultants: Engine Hostler Neuro Hem/Oncology Pulmonary Vital Signs: Date Time Temp Pulse Resp B/P (MAP) Pulse Ox O2 Delivery O2 Flow Rate FiO2 04/22/17 11:30 36.0 77 26 93 10.0 04/22/17 10:00 96 26 135/84 (101) 94 High Flow Oxygen 45.0 60 04/22/17 08:00 93 High Flow Oxygen 60 04/22/17 08:00 36.0 71 24 143/90 (107) 93 High Flow Oxygen 45.0 60 04/22/17 08:00 High Flow Oxygen 45 04/22/17 06:00 57 18 110/70 (83) 94 High Flow Oxygen 45.0 60 04/22/17 04:00 36.6 51 16 114/73 (87) 95 CPAP 04/22/17 04:00 CPAP 04/22/17 02:00 57 17 144/85 (104) 94 CPAP 04/22/17 00:33 69 95 50 04/22/17 00:01 36.5 68 19 136/81 (99) 95 High Flow Oxygen 50.0 60 04/21/17 23:59 High Flow Oxygen 50.0 60 04/21/17 22:00 69 18 138/85 (102) 95 High Flow Oxygen 50.0 60 04/21/17 20:00 36.6 70 18 157/90 (112) 95 High Flow Oxygen 50.0 60 04/21/17 20:00 High Flow Oxygen 50.0 60 04/21/17 18:00 36.5 77 20 159/86 (110) 93 High Flow Oxygen 50.0 04/21/17 16:00 36.5 70 20 136/80 (98) 92 High Flow Oxygen 50.0 04/21/17 16:00 High Flow Oxygen 50.0 04/21/17 14:00 75 22 161/83 (109) 92 High Flow Oxygen 50.0 Lab Results: Results Past 24 Hours Test 04/21/17 16:06 04/21/17 20:23 04/21/17 20:57 04/22/17 05:06 Range/Units Bedside Glucose 108 109 70-99 mg/dl Sodium Level 141 140 136-145 mmol/L Potassium Level 4.4 4.2 3.5-5.1 mmol/L Chloride Level 103 104 98-107 mmol/L Carbon Dioxide Level 33 31 21-32 mmol/L Anion Gap 5.0 5.0 3-11 mmol/L Blood Urea Nitrogen 22 23 7-18 mg/dl Creatinine 1.06 0.88 0.60-1.40 mg/dl Est Creatinine Clear Calc Drug Dose 67.5 81.3 ml/min Estimated GFR () 79.2 97.4 Estimated GFR (Non- 68.3 84.0 BUN/Creatinine Ratio 20.3 25.6 10-20 Random Glucose 115 104 70-99 mg/dl Calcium Level 8.4 8.4 8.5-10.1 mg/dl White Blood Count 9.06 4.8-10.8 K/uL Red Blood Count 4.74 4.7-6.1 M/uL Hemoglobin 11.5 14.0-18.0 g/dL Hematocrit 39.5 42-52 % Mean Corpuscular Volume 83.3 80-100 fL Mean Corpuscular Hemoglobin 24.3 25-34 pg Mean Corpuscular Hemoglobin Concent 29.1 32-36 g/dl RDW Standard Deviation 52.4 36.4-46.3 fL RDW Coefficient of Variation 17.3 11.5-14.5 % Platelet Count 406 130-400 K/uL Mean Platelet Volume 9.5 7.4-10.4 fL Phosphorus Level 3.2 2.5-4.9 mg/dl Magnesium Level 2.2 1.8-2.4 mg/dl
[2017-04-22] MEDS: PIPERACILL/TAZOBAC IV 3.375 GM in DEXTROSE 5% 100ML 100 ML IV SCH ×2 (13:30→19:43)
--- NOTE | 2017-04-22 15:26 | PROGRESS NOTE ---
DATE: 04/22/2017 SUBJECTIVE: Stephane has been removed off to the regular floor. His O2 is being titrated downwards. He is breathing much more comfortably, but still requires high-flow oxygen. He is on his standard myasthenic protocol with Mestinon 4 times a day, Imuran 50 mg a day and now hydrocortisone, although at some point, he is going to have to be switched over to prednisone orally, which is his baseline at 30 mg. Now with his acute illness, his pneumonia, the recent detection of diffuse metastatic disease, his prednisone requirements are probably going to be higher and we will make the adjustments just prior to his discharge. A tissue diagnosis remains unestablished, but he has had a biopsy of a subcutaneous nodule today, which was fortuitously discovered and prevented the need for liver biopsy and/or a transbronchial biopsy. The later of which would have put him at more risk of respiratory failure in his precarious state. From myasthenic point of view, he has no ptosis. His speech is clear. He is a little breathless, but there are pulmonary reasons for this. There is no proximal weakness of significance, although with continued bed rest, he is going to develop this and his reflexes, etc, remained normal or at his baseline. I will keep making visits with him, but for now, we are all awaiting tissue diagnosis on the assumption that this is some form of metastatic cancer, be it melanoma, adenocarcinoma, unknown primary, or possibly a recurrence of his prostate CA, despite the normal PSA level or a thyroid cancer, which he has had in the past. My suspicions continue to be that this is an adenocarcinoma of unknown primary.
--- NOTE | 2017-04-22 16:51 | Critical Care Progress Note ---
Critical Care Progress Note Date of Service Apr 22, 2017. ICU Day ICU Day Number: [address] Aranda Subjective Patient is resting comfortably in bed this morning with no acute complaints overnight. The patient states that he feels his shortness of breath has marginally improved. He went for the interventional radiologic procedure this morning where a biopsy was obtained from his left hip under US guidance. Objective General Appearance: WD/WN, saturating 91% on high flow nasal cannula at 70% FiO2 Head: normocephalic, atraumatic Neck: trachea midline, supple Respiratory: Currently on hig flow nasal cannula, Bilateral crackles, no increased work of breathing or respiratory distress Cardiovasular: regular rate/rhythm, normal S1S2, no M/G/R Abdomen: non tender, normal bowel sounds Neuro: alert, oriented x 3 Current SOFA Score SOFA Score Response (Comments) Value Platelets (x10) > 150 0 Bilirubin (mg/dL) < 1.2 0 Marisela Coma Score 15 0 Level of Hypotension No Hypotension 0 Creatinine (mg/dL) < 1.2 0 Total 0 Assessment & Plan Patient is a 76 year old male that presents with acute hypoxic respiratory failure 2/2 bilateral pneumonia superimposed on presumed metastatic melanoma ( new diagnosis on this admission). Patient underwent successful ultrasound- guided fine-needle aspiration biopsy of an intramuscular left hip mass this morning. We are currently awaiting cytology results from the biopsy. The patient is currently stable on 65% High Flow Nasal Cannula and will be moved to Telemetry. Neuro - [facility] ICU- Negative - Alert and Oriented - Continue Azathioprine 50mg daily for MG - Continue Pyridostigmine Bromine 60mg QID home medication - 120mg Solumedrol IV in ED - 50mg Hydrocortisone q8h IV - Consult Neurology regarding Myasthenia Gravis - MRI Brain on 04/20: 1. Limited evaluation for metastatic disease without the use of IV contrast. 2. 5 x 5 mm focus of mildly increased T1 signal involving the medial aspect of the posterior right frontal lobe near the vertex adjacent to the falx cerebri as above is suspicious for possible melanoma metastasis. 3. No acute infarction identified. Respiratory: Hypoxemic respiratory failure requiring supplemental O2 - Respiratory status stabilized --> Currently requiring high flow oxygen with an FiO2 of 65% - CXR 04/20: Mildly worsened airspace opacities of the left upper lobe suggest ongoing pneumonia. - Chest CT: 1) Innumerable nodules throughout the lungs. Although nonspecific, extensive metastatic disease is favored. Metastatic melanoma could have this imaging appearance. Findings discussed with Dr. Lantigua at time of dictation. 2) Upper lobe predominant airspace opacity within the lungs which could reflect superimposed pneumonia. 3) Possible hypodense hepatic lesions which raise the possibility of metastatic disease. A contrast-enhanced CT of the abdomen and pelvis could be obtained. 4) Multiple small indeterminate but suspicious upper abdominal nodules/implants which favor metastatic disease. - ABG 7.45/ 43/ 62/ 30 - 40mg Hydrocortisone BID IV (Day 4 of high dose steroid therapy) - Narrow antibiotic spectrum to Zosyn (Day 4 of antibiotics) --> Vancomycin, Zosyn, and Levaquin (04/19-04/20 --> 2 days) - Tamiflu Prophylaxis - Currently on oxygen to maintain O2 sats > 90% - CPAP at night (COPD) - Lactic Acid 3.5 on admission - Influenza A & B negative - Mycoplasma pending - Procalcitonin normal (0.31) - Pulmonary following - Patient full code and consent obtained for Bronchoscopy, A-line, Central Line , Intubation, and Blood Transfusions CV: - Hemodynamically stable - Continue home Norvasc 5mg daily - Holding home HCTZ due to hypokalemia - Aspirin 81mg daily GI: - CT Abd/ Pelvis 04/20: Findings consistent with extensive metastatic disease with innumerable pulmonary and hepatic metastases and numerous soft tissue implants, including intramuscular metastases. This distribution raises the possibility of metastatic melanoma. - Transaminitis with concerning metastasis to the liver - Hepatitis panel - Protonix 40mg PO Daily - AHA Diet Renal: - Hypokalemia 3.1 --> 20 meq q4h - Holding home HCTZ - 40mEq of KCl in the ED - Daily BMP Endo: - Continue home Levothyroxine 50 mcg - TSH - 0.727 - Monitor blood sugars as patient on high dose steroid Heme/ Onc: - Successful ultrasound-guided fine-needle aspiration biopsy of an intramuscular left hip mass --> Currently awaiting cytology - Leukocytosis improving- 13.75 --> 10.81 --> 10.65 --> 9.06 - Bilateral Airspace Opacities on CXR - Day 4 Antibiotic Therapy --> Currently using levaquin - H/H: 13.7/44.1 -->12.0/33.9 --> 11.7/39.7 - Thrombocytosis- Platelets - 450 DVT Prophylaxis: - Hold Lovenox GI Prophylaxis: - Protonix Code Status: - Full Resuscitation attending add, the pt was seen, examined independently, agreed with Dr. Griffith assessment and plan. In discussion with the patient, the patient continues to be asymptomatic. He seems to have more acceptance of his diagnosis of metastatic disease. Pathology is still pending. His physical exam revealed stable vital signs, the patient oxygen requirement is coming down to 60%, he can be changed to high flow nasal cannula possible. Follow-up results of the biopsy done by IR. Appreciate their input. Prognosis is guarded. Oncology consult and follow-up with Dr. Duke. Input appreciated. Patient can be transferred to regular floor. Palliative care on board and appreciated. Case discussed with the staff on rounds and details. Time spent with the patient was 33 minutes. Consults & Procedures Consultants: Dr. Hodges Procedures: None Data Medications: Current Inpatient Medications Medications (Trade) Dose Ordered Sig/Kevin Route Start Time Stop Time Status Last Admin Dose Admin Acetaminophen (Tylenol Tab) 650 mg Q4H PRN PO 04/19/17 14:30 05/19/17 14:29 Ondansetron HCl (Zofran Inj) 4 mg Q6H PRN IV 04/19/17 14:30 05/19/17 14:29 Amlodipine Besylate (Norvasc Tab) 5 mg DAILY PO 04/20/17 09:00 05/20/17 08:59 04/22/17 09:58 5 MG Aspirin (Ecotrin Tab) 81 mg DAILY PO 04/20/17 09:00 05/20/17 08:59 04/22/17 09:57 81 MG Azathioprine (Imuran Tab) 50 mg DAILY PO 04/20/17 09:00 05/20/17 08:59 04/22/17 09:58 50 MG Levothyroxine Sodium (Synthroid Tab) 50 mcg DAILYBB PO 04/20/17 06:00 05/20/17 06:59 04/22/17 06:38 50 MCG Pyridostigmine [place] (Mestinon Tab) 60 mg QID PO 04/19/17 21:00 05/19/17 20:59 04/22/17 13:29 60 MG Pantoprazole Sodium (Protonix Tab) 40 mg DAILY PO 04/20/17 09:00 05/20/17 08:59 04/22/17 09:58 40 MG Glucose (Glucose 40% Gel) 15-30 GRAMS 15 GRAMS... UD PRN PO 04/19/17 17:15 05/19/17 17:14 Glucose (Glucose Chew Tab) 4-8 Tablets 4 Tabl... UD PRN PO 04/19/17 17:15 05/19/17 17:14 Dextrose (Dextrose 50% 50ML Syringe) 25-50ML OF 50% DW IV FOR... UD PRN IV 04/19/17 17:15 05/19/17 17:14 Glucagon (Glucagon Inj) 1 mg UD PRN SQ 04/19/17 17:15 05/19/17 17:14 Ioversol (Optiray 320) 100 ml UD PRN IV 04/19/17 17:45 04/23/17 17:44 Piperacillin Sod/ Tazobactam Sod (Consult) 1 ea UD PRN N/A 04/20/17 06:45 05/20/17 06:44 Cholecalciferol (Vitamin D Tab) 2,000 inter.unit DAILY PO 04/22/17 09:00 05/22/17 08:59 04/22/17 09:59 2,000 INTER.UNIT Methylprednisolone Sodium Succinate 40 mg/Syringe 0.64 ml @ 1.5 mls/min Q12@0900,2100 IV 04/22/17 21:00 05/22/17 20:59 Piperacillin Sod/ Tazobactam Sod 3.375 gm/Dextrose 115 ml @ 28.75 mls/ hr Q8H IV 04/22/17 12:00 04/28/17 11:59 04/22/17 13:30 28.75 MLS/HR Vital Signs: Date Time Temp Pulse Resp B/P (MAP) Pulse Ox O2 Delivery O2 Flow Rate FiO2 04/22/17 16:00 High Flow Oxygen 45.0 65 04/22/17 15:27 36.6 79 18 151/80 (103) 99 High Flow Oxygen 45.0 04/22/17 11:49 36.5 78 20 142/82 (102) 95 High Flow Oxygen 45.0 60 04/22/17 11:49 High Flow Oxygen 45.0 60 04/22/17 11:30 36.0 77 26 93 10.0 04/22/17 10:00 96 26 135/84 (101) 94 High Flow Oxygen 45.0 60 04/22/17 08:00 93 High Flow Oxygen 60 04/22/17 08:00 36.0 71 24 143/90 (107) 93 High Flow Oxygen 45.0 60 04/22/17 08:00 High Flow Oxygen 45 04/22/17 06:00 57 18 110/70 (83) 94 High Flow Oxygen 45.0 60 04/22/17 04:00 36.6 51 16 114/73 (87) 95 CPAP 04/22/17 04:00 CPAP 04/22/17 02:00 57 17 144/85 (104) 94 CPAP 04/22/17 00:33 69 95 50 04/22/17 00:01 36.5 68 19 136/81 (99) 95 High Flow Oxygen 50.0 60 04/21/17 23:59 High Flow Oxygen 50.0 60 04/21/17 22:00 69 18 138/85 (102) 95 High Flow Oxygen 50.0 60 04/21/17 20:00 36.6 70 18 157/90 (112) 95 High Flow Oxygen 50.0 60 04/21/17 20:00 High Flow Oxygen 50.0 60 04/21/17 18:00 36.5 77 20 159/86 (110) 93 High Flow Oxygen 50.0 Laboratory Results: Last 24 Hours Test 04/21/17 20:23 04/21/17 20:57 04/22/17 05:06 Sodium Level 141 mmol/L 140 mmol/L Potassium Level 4.4 mmol/L 4.2 mmol/L Chloride Level 103 mmol/L 104 mmol/L Carbon Dioxide Level 33 mmol/L 31 mmol/L Anion Gap 5.0 mmol/L 5.0 mmol/L Blood Urea Nitrogen 22 mg/dl 23 mg/dl Creatinine 1.06 mg/dl 0.88 mg/dl Est Creatinine Clear Calc Drug Dose 67.5 ml/min 81.3 ml/min Estimated GFR () 79.2 97.4 Estimated GFR (Non- 68.3 84.0 BUN/Creatinine Ratio 20.3 25.6 Random Glucose 115 mg/dl 104 mg/dl Calcium Level 8.4 mg/dl 8.4 mg/dl Bedside Glucose 109 mg/dl White Blood Count 9.06 K/uL Red Blood Count 4.74 M/uL Hemoglobin 11.5 g/dL Hematocrit 39.5 % Mean Corpuscular Volume 83.3 fL Mean Corpuscular Hemoglobin 24.3 pg Mean Corpuscular Hemoglobin Concent 29.1 g/dl RDW Standard Deviation 52.4 fL RDW Coefficient of Variation 17.3 % Platelet Count 406 K/uL Mean Platelet Volume 9.5 fL Phosphorus Level 3.2 mg/dl Magnesium Level 2.2 mg/dl Resident Tracking Resident Involvement: Resident Care Provided Care Provided: Adult Hospital Medicine
[2017-04-22] MEDS: METHYLPREDNISOLONE IV 40 MG in SYRINGE 0 ML IV SCH (20:23)
[2017-04-23] VITALS (9 sets, daily range): BP systolic 134–149; BP diastolic 77–87; PULSE 62–79; TEMP 36.4–36.7; O2SAT 91–100
[2017-04-23] MEDS ORDERED: AMLODIPINE BESYLATE 5 MG TAB PO ONE (00:12)
[2017-04-23] MEDS: PIPERACILL/TAZOBAC IV 3.375 GM in DEXTROSE 5% 100ML 100 ML IV SCH ×2 (04:10→14:16)
[2017-04-23] MEDS: LEVOTHYROXINE 50 MCG TAB PO SCH (06:02)
[2017-04-23] MEDS: CHOLECALCIFEROL 1000 INTER.UNIT TAB PO SCH (08:02)
[2017-04-23] MEDS: PANTOprazole SOD 40 MG TAB PO SCH (08:02)
[2017-04-23] MEDS: ASPIRIN 81 MG ECTAB PO SCH (08:02)
[2017-04-23] MEDS: PYRIDOSTIGMINE BROMIDE 60 MG TAB PO SCH ×4 (08:03→20:46)
[2017-04-23] MEDS: METHYLPREDNISOLONE IV 40 MG in SYRINGE 0 ML IV SCH (08:03)
[2017-04-23] MEDS: AZATHIOPRINE 50 MG TAB PO SCH (08:04)
--- NOTE | 2017-04-23 14:36 | Pulmonology Progress Note ---
Pulmonary Progress Note Date of Service Apr 23, 2017. Attending Dr. Lyman Subjective Patient is feeling well today. His FiO2 was titrated from 60 yesterday to 40 today. He continues to saturate well. He continues on a high flow O2 at a rate of 45 L/Min. No new labs. Pathology pending from biopsy. No new imaging. Patient has a wet cough this morning but is not producing any sputum. He is not SOB at rest. He denies chest pain. His appetite is good. Objective VS reviewed: SaO2 93-94% on high flow with rate 45/FiO2 40. BP 148/87 RR 18 HR 79 General: Patient is awake, alert, cooperative, and in no acute distress. Well developed. Head: Normocephalic, Atraumatic. ENT: PERRLA, No discharge, EOMI, Sclera normal Neck: Normal ROM. Trachea midline. No stridor Respiratory: Very slight wheeze RUL. High flow O2 in place on exam. No respiratory distress. No accessory muscle use. Cardiovascular: Regular rate and rhythm. Abdomen: Nontender to palpation. Normal bowel sounds hear throughout. No guarding. Abdomen is soft and nontender. Extremities: No edema, cyanosis. Normal ROM Neuro: Alert, Oriented x 3. CN II-XII grossly intact. Sensation and motor function grossly intact. Psych: Mood and affect are normal. Assessment & Plan Hypoxic respiratory failure with multiple pulmonary nodules: 1. Hypoxia: Likely associated with tumor emboli to the lung. High flow oxygen is maintaining oxygen saturation currently. Continue to taper FiO2 and flow rate of O2 supplementation. Continue abx pending further workup and improvement. 2. Pulmonary nodules: Can consider bronchoscopic evaluation if necessary, but will await pathology results of U/S guided bx- pending. Likely this is metastatic disease, but differential dx includes atypical infection as well as metastatic melanoma, atypical lymphoid tumors, etc. We will continue to follow this patient, but overall feel he is improving from a respiratory standpoint. Data Medications: Current Inpatient Medications Medications (Trade) Dose Ordered Sig/Kevin Route Start Time Stop Time Status Last Admin Dose Admin Acetaminophen (Tylenol Tab) 650 mg Q4H PRN PO 04/19/17 14:30 05/19/17 14:29 Ondansetron HCl (Zofran Inj) 4 mg Q6H PRN IV 04/19/17 14:30 05/19/17 14:29 Aspirin (Ecotrin Tab) 81 mg DAILY PO 04/20/17 09:00 05/20/17 08:59 04/23/17 08:02 81 MG Azathioprine (Imuran Tab) 50 mg DAILY PO 04/20/17 09:00 05/20/17 08:59 04/23/17 08:04 50 MG Levothyroxine Sodium (Synthroid Tab) 50 mcg DAILYBB PO 04/20/17 06:00 05/20/17 06:59 04/23/17 06:02 50 MCG Pyridostigmine [place] (Mestinon Tab) 60 mg QID PO 04/19/17 21:00 05/19/17 20:59 04/23/17 14:16 60 MG Pantoprazole Sodium (Protonix Tab) 40 mg DAILY PO 04/20/17 09:00 05/20/17 08:59 04/23/17 08:02 40 MG Glucose (Glucose 40% Gel) 15-30 GRAMS 15 GRAMS... UD PRN PO 04/19/17 17:15 05/19/17 17:14 Glucose (Glucose Chew Tab) 4-8 Tablets 4 Tabl... UD PRN PO 04/19/17 17:15 05/19/17 17:14 Dextrose (Dextrose 50% 50ML Syringe) 25-50ML OF 50% DW IV FOR... UD PRN IV 04/19/17 17:15 05/19/17 17:14 Glucagon (Glucagon Inj) 1 mg UD PRN SQ 04/19/17 17:15 05/19/17 17:14 Ioversol (Optiray 320) 100 ml UD PRN IV 04/19/17 17:45 04/23/17 17:44 Piperacillin Sod/ Tazobactam Sod (Consult) 1 ea UD PRN N/A 04/20/17 06:45 05/20/17 06:44 Cholecalciferol (Vitamin D Tab) 2,000 inter.unit DAILY PO 04/22/17 09:00 05/22/17 08:59 04/23/17 08:02 2,000 INTER.UNIT Methylprednisolone Sodium Succinate 40 mg/Syringe 0.64 ml @ 1.5 mls/min Q12@0900,2100 IV 04/22/17 21:00 05/22/17 20:59 04/23/17 08:03 1.5 MLS/MIN Piperacillin Sod/ Tazobactam Sod 3.375 gm/Dextrose 115 ml @ 28.75 mls/ hr Q8H IV 04/22/17 12:00 04/28/17 11:59 04/23/17 14:16 28.75 MLS/HR Amlodipine Besylate (Norvasc Tab) 7.5 mg DAILY PO 04/24/17 09:00 05/20/17 08:59 I & O: 24-Hour Column 04/24/17 08:00 Intake Total 240 ml Output Total 400 ml Balance -160 ml Vital Signs: Date Time Temp Pulse Resp B/P (MAP) Pulse Ox O2 Delivery O2 Flow Rate FiO2 04/23/17 12:00 94 High Flow Oxygen 45.0 40 04/23/17 11:39 36.4 79 18 148/87 (107) 94 04/23/17 08:00 93 High Flow Oxygen 45.0 40 04/23/17 07:10 36.5 62 18 147/77 (100) 93 45.0 40 04/23/17 04:13 36.7 68 20 149/83 (105) 100 High Flow Oxygen 45.0 04/23/17 04:00 95 High Flow Oxygen 45.0 50 04/23/17 00:00 95 High Flow Oxygen 45.0 50 04/22/17 23:30 36.7 70 18 171/94 (119) 96 High Flow Oxygen 45.0 04/22/17 20:00 95 High Flow Oxygen 45.0 50 04/22/17 19:47 36.3 77 20 166/96 (119) 95 High Flow Oxygen 45.0 04/22/17 18:25 97 High Flow Oxygen 45.0 50 04/22/17 17:08 98 High Flow Oxygen 45.0 50 04/22/17 16:00 High Flow Oxygen 45.0 65 04/22/17 15:27 36.6 79 18 151/80 (103) 99 High Flow Oxygen 45.0
--- NOTE | 2017-04-23 16:48 | PROGRESS NOTE ---
DATE: 04/23/2017 SUBJECTIVE: Stephane looks about the same. He is a little less dyspneic. His oxygen levels are diminishing in terms of his requirements, and he is maintaining his oxygenation. He is still on the IV steroids in the form of hydrocortisone, the Mestinon and Imuran as per the standard regimen. Right now, pathology still out on the biopsy sample. He is a man with multiple issues now with metastatic or presumptive widely metastatic disease from an unknown primary, who has pneumonia, underlying myasthenia gravis, has had thyroid cancer, has had prostate cancer and has had a melanoma removed recently. Prognosis in this setting is extremely poor, but at this point he is active, alert, seems to want to pursue some form of treatment for his cancer if indeed this proves to be the case and we are going to continue to support his myasthenia, which clinically is quiescent despite his multiple stress levels right now. He is going to need switched over to oral prednisone at some point, he is currently taking 30 mg a day, my suspicions are will have to have him on 60 mg a day for a while until the infectious process is treated adequately and his respiratory status can be stabilized and then taper this down accordingly. I will check back with him tomorrow. USMAN
--- NOTE | 2017-04-23 18:20 | Progress Note ---
Internal Med Progress Note Date of Service: Apr 23, 2017. Provider Documentation: SUBJECTIVE: feels much better , no complain of respiratory distress has mild non productive cough no fever or chills FiO2 was titrated from 60 -> 40 today. OBJECTIVE: Vital Signs-as noted below Exam: General-well appearing male, comfortable , no sign of respiratory distress Eyes-sclera non icteric , PERRLA/EOMI ENT-High flow 02 via nasal canula Neck-no JVD Lungs-diminished breath sound with, improved aeration Heart-regular S1/S2 , no JVD , no lower ext edema Abdomen-soft , non tender Extremities-no rash or deformity Neuro-AAO x3, no focal neurological deficit Lab data as noted below. ASSESSMENT & PLAN: ACUTE HYPOXEMIC RESPIRATORY FAILURE : improved possible due to tumor emboli to lungs - CTA chest showed Innumerable nodules throughout the lungs. Although nonspecific , extensive metastatic disease is favored. Upper lobe predominant airspace opacity within the lungs. NO PE identified presented with progressive SOB /ARIAS , hypoxic in RA spo2 80% was admitted to ICU for respiratory support required High flow 02 required Fio2 70-80% to maintain adequate 02 saturation appreciate input from [employer] pt been transferred out of ICU yesterday respiratory status gradually improving on 40 % Fio2 changed IV Solu Medrol to PO Prednisone 60 mg daily ( no audible wheeze noted ) pt may need bronchoscopic biopsy of nodule for definitive dx respiratory status has to be optimized prior to Bronch procedure pulmonology following waiting for pathology report form Left hip mass biopsy COMMUNITY ACQUIRED PNEUMONIA left upper lobe airspace density noted CT chest Cxray 04/20 mildly worsened airspace opacities on the left upper lobe suggestive of ongoing pneumonia has minimum cough negative for Influenza A and B no evidence of sepsis normal Prolactin level ( 0.31) . leukocytosis has resolved elevated Lactic acid - tissue hypoxemia due to respiratory failure -improved empiric abx with Zosyn ( day # 5 ) for Community acquired pneumonia ( ist day of therapy 04/19/17 ) was on vancomycin /Zosyn /Levaquin ( 04/19-04/20 ) 2 days will D/c Abx as completed # 7 days of tx METASTATIC LUNG /LIVER AND SUB CUTANEOUS NODULE : Unknown primary source hx of melanoma/ previous hx of prostate cancer/ thyroid mass Malignant Melanoma in situ s/p rt nasal side wall removal on 09/27/[address] [facility] in [facility] had additional resection from the left side of nasal sidewall on 10/10/2016 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 , . stable Heme onc following HTN BP stable continue amlodipine HCTZ on hold for hypokalemia Hypothyroidism TSH WNL _ 0.727 continue Synthroid FULL CODE Patient completed living Son, Danilo Shaikh (Stephane Shaikh Jr.) named as primary health care agent / Margarita (Harmony) and daughter Brandy as alternatives. At end stage, patient would not want any heroic measures. For now, he remains a level one full code. DVT PROPHYLAXIS moderate risk due to possible metastatic disease sub q Lovenox DISPOSITION expected to be discharged home when medically stable PT/OT eval prior to discharge Medicine follow up with Dr Hernandez will need Heme Onc follow up with Dr Elie Duke will need Pulmonary follow up with Dr Lyman Vital Signs: Date Time Temp Pulse Resp B/P (MAP) Pulse Ox O2 Delivery O2 Flow Rate FiO2 04/23/17 16:00 High Flow Oxygen 35.0 40 04/23/17 15:43 36.6 76 18 148/82 (104) 94 High Flow Oxygen 35.0 04/23/17 12:00 94 High Flow Oxygen 45.0 40 04/23/17 11:39 36.4 79 18 148/87 (107) 94 04/23/17 08:00 93 High Flow Oxygen 45.0 40 04/23/17 07:10 36.5 62 18 147/77 (100) 93 45.0 40 04/23/17 04:13 36.7 68 20 149/83 (105) 100 High Flow Oxygen 45.0 04/23/17 04:00 95 High Flow Oxygen 45.0 50 04/23/17 00:00 95 High Flow Oxygen 45.0 50 04/22/17 23:30 36.7 70 18 171/94 (119) 96 High Flow Oxygen 45.0 04/22/17 20:00 95 High Flow Oxygen 45.0 50 04/22/17 19:47 36.3 77 20 166/96 (119) 95 High Flow Oxygen 45.0
[2017-04-23] MEDS ORDERED: NRV5 PO (19:24)
[2017-04-23] MEDS ORDERED: PRD20 PO (19:24)
[2017-04-23] MEDS: ENOXAPARIN 40 MG/0.4 ML SYR SQ SCH (20:45)
[2017-04-24 00:39] VITALS: BP 149/81; PULSE 60; TEMP 36.5; O2SAT 91
[2017-04-24] MEDS: LEVOTHYROXINE 50 MCG TAB PO SCH (06:17)
[2017-04-24 07:31] VITALS: BP 119/74; PULSE 68; TEMP 36.5; O2SAT 95
[2017-04-24] MEDS: ASPIRIN 81 MG ECTAB PO SCH (07:40)
[2017-04-24] MEDS: AZATHIOPRINE 50 MG TAB PO SCH (07:40)
[2017-04-24] MEDS: PANTOprazole SOD 40 MG TAB PO SCH (07:40)
[2017-04-24] MEDS: AMLODIPINE BESYLATE 5 MG TAB PO SCH (07:40)
[2017-04-24] MEDS: PYRIDOSTIGMINE BROMIDE 60 MG TAB PO SCH ×4 (07:40→20:29)
[2017-04-24] MEDS: CHOLECALCIFEROL 1000 INTER.UNIT TAB PO SCH (07:41)
[2017-04-24 09:28] VITALS: O2SAT 95
--- NOTE | 2017-04-24 11:11 | Pulmonology Progress Note ---
Pulmonary Progress Note Date of Service Apr 24, 2017. Attending Dr. Lyman Subjective Patient stable today but continues to note dyspnea with exertion Objective VS: I/Os: +3.4L SaO2%: 901-95 % FiO2: High-flow system rate 40 L/FiO2 35% (gradual improved) RR: 18-22 HR: 60-68 Resp: Rhonchi bilaterally Card: S1 and S2 distant heart sounds but regular rate and rhythm Abd: Positive soft nontender Ext: No clubbing cyanosis or edema noted Studies Pathology: o Ultrasound FNA 04/22/2017: Left hip mass Microbiology o Nasal swallow 04/19/2017: Negative DNA specimen for MRSA o Blood culture x2 04/19/2017: No growth o Expectorated sputum 04/19/2017: Moderate normal tam Radiology o MRI without contrast 04/20/2017: High probability of metastatic lesion Active pulmonary Medications: 1. Prednisone 60 mg p.o. daily 2. Lovenox 40 mg subcu 3. Aspirin 81 mg daily 4. Azathioprine 50 mg daily 5. Pantoprazole 40 mg daily 6. Mestinon 60 mg q.i.d. Assessment & Plan 76-year-old gentleman with hypoxic respiratory insufficiency and diffuse/ metastatic melanoma: #1 Hypoxemia: Patient still requires high flow oxygen system at this time. The most likely source of this hypoxemia is diffuse tumor emboli to the lungs which will require chemotherapeutic intervention. This will be discussed with the patient later on this afternoon with his primary oncologist Dr. Duke. Suggest we slowly start titrating down on steroids as tolerated over the next 10-14 days. #2 Melanoma: The FNA from the left hip on 04/22/2017 is notable for melanoma at this time. This is consistent with his clinical history as well as current clinical radiographic presentation. Further treatment will be based off patient and oncology recommendations. At this time the pulmonary service will sign off thank you very much. Data Medications: Current Inpatient Medications Medications (Trade) Dose Ordered Sig/Kevin Route Start Time Stop Time Status Last Admin Dose Admin Acetaminophen (Tylenol Tab) 650 mg Q4H PRN PO 04/19/17 14:30 05/19/17 14:29 Ondansetron HCl (Zofran Inj) 4 mg Q6H PRN IV 04/19/17 14:30 05/19/17 14:29 Aspirin (Ecotrin Tab) 81 mg DAILY PO 04/20/17 09:00 05/20/17 08:59 04/24/17 07:40 81 MG Azathioprine (Imuran Tab) 50 mg DAILY PO 04/20/17 09:00 05/20/17 08:59 04/24/17 07:40 50 MG Levothyroxine Sodium (Synthroid Tab) 50 mcg DAILYBB PO 04/20/17 06:00 05/20/17 06:59 04/24/17 06:17 50 MCG Pyridostigmine Raymond (Mestinon Tab) 60 mg QID PO 04/19/17 21:00 05/19/17 20:59 04/24/17 07:40 60 MG Pantoprazole Sodium (Protonix Tab) 40 mg DAILY PO 04/20/17 09:00 05/20/17 08:59 04/24/17 07:40 40 MG Glucose (Glucose 40% Gel) 15-30 GRAMS 15 GRAMS... UD PRN PO 04/19/17 17:15 05/19/17 17:14 Glucose (Glucose Chew Tab) 4-8 Tablets 4 Tabl... UD PRN PO 04/19/17 17:15 05/19/17 17:14 Dextrose (Dextrose 50% 50ML Syringe) 25-50ML OF 50% DW IV FOR... UD PRN IV 04/19/17 17:15 05/19/17 17:14 Glucagon (Glucagon Inj) 1 mg UD PRN SQ 04/19/17 17:15 05/19/17 17:14 Cholecalciferol (Vitamin D Tab) 2,000 inter.unit DAILY PO 04/22/17 09:00 05/22/17 08:59 04/24/17 07:41 2,000 INTER.UNIT Amlodipine Besylate (Norvasc Tab) 7.5 mg DAILY PO 04/24/17 09:00 05/20/17 08:59 04/24/17 07:40 7.5 MG Prednisone (PredniSONE TAB) 60 mg DAILY PO 04/24/17 09:00 05/24/17 08:59 04/24/17 07:40 60 MG Enoxaparin Sodium (Lovenox Inj) 40 mg HS SQ 04/23/17 21:00 05/23/17 20:59 04/23/17 20:45 40 MG Vital Signs: Date Time Temp Pulse Resp B/P (MAP) Pulse Ox O2 Delivery O2 Flow Rate FiO2 04/24/17 09:28 95 High Flow Oxygen 40.0 35 04/24/17 07:31 36.5 68 22 119/74 (89) 95 40.0 35 04/24/17 00:39 36.5 60 18 149/81 (103) 91 40.0 35 04/24/17 00:00 High Flow Oxygen 40.0 35 04/23/17 20:00 High Flow Oxygen 40.0 35 04/23/17 19:44 36.7 73 18 134/80 (98) 91 High Flow Oxygen 35.0 04/23/17 16:00 High Flow Oxygen 35.0 40 04/23/17 15:43 36.6 76 18 148/82 (104) 94 High Flow Oxygen 35.0 04/23/17 12:00 94 High Flow Oxygen 45.0 40 04/23/17 11:39 36.4 79 18 148/87 (107) 94
[2017-04-24 14:44] VITALS: BP 149/83; PULSE 80; TEMP 36.4; O2SAT 97
--- NOTE | 2017-04-24 17:39 | PROGRESS NOTE ---
DATE: 04/24/2017 SUBJECTIVE: Stephane looks better today. He is now on nasal cannula oxygen, about 8 L. His oxygen saturations running in the 90s. He is less dyspneic. There is absolutely no evidence for significant myasthenia. 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 Speech is clear. Neck flexor strength is normal. Proximal strength is normal. He can get up and walk, but at this point, we are still waiting for the definitive pathology on the biopsy, which preliminarily looks like it may indeed be melanoma, although there is some question in the pathologist mind apparently. Dr. Duke is going to review this. Dr. Lyman in Pulmonary, I believe, is going to sign off. His pneumonia is being treated. At this point, the decision about how to approach the metastatic disease is paramount. Dr. Cervantes will be assuming neurologic consultation duties tomorrow. Now, Mr. Shaikh is on his Mestinon around the clock 4 doses a day, Imuran, and 60 mg of prednisone and his regular dose is 30 mg of prednisone. While he is impaired respiratory marinelli and going through the treatment of his cancer depending what it is, I suspect his steroid needs are going to be higher, but I suspect we can get him down to 40 mg of prednisone within the next week or so. For now, however, I would keep him on 60. I will let Dr. Cervantes make a decision about how fast to taper him.
--- NOTE | 2017-04-24 18:38 | Progress Note ---
Internal Med Progress Note Date of Service: Apr 24, 2017. Provider Documentation: SUBJECTIVE: continued to feel better weaned off high flow 02 on 4 L 02 via nasal canula able to walk on hallway ,no complain of SOB or ARIAS hoping to be discharge home tomorrow 2 step exercise ordered OBJECTIVE: Vital Signs-as noted below Exam: General-well appearing male, comfortable , no sign of respiratory distress Eyes-sclera non icteric , PERRLA/EOMI Neck-no JVD Lungs-diminished breath sound with, improved aeration Heart-regular S1/S2 , no JVD , no lower ext edema Abdomen-soft , non tender Extremities-no rash or deformity Neuro-AAO x3, no focal neurological deficit Lab data as noted below. ASSESSMENT & PLAN: ACUTE HYPOXEMIC RESPIRATORY FAILURE : improved able to be weaned off high flow 02 , transitioned to nasal canula on 2-4 L now respiratory failure possible due to tumor emboli to lungs - CTA chest showed Innumerable nodules throughout the lungs. Although nonspecific , extensive metastatic disease is favored. Upper lobe predominant airspace opacity within the lungs. NO PE identified presented with progressive SOB /ARIAS , hypoxic in RA spo2 80% required ICU for respiratory support High flow 02 required Fio2 70-80% to maintain adequate 02 saturation appreciate input from [employer] respiratory status gradually improved changed IV Solu Medrol to PO Prednisone 60 mg daily ( no audible wheeze noted ) Pathology report form Left hip mass biopsy -shows Metastatic melanoma very poor prognosis COMMUNITY ACQUIRED PNEUMONIA left upper lobe airspace density noted CT chest Cxray 04/20 mildly worsened airspace opacities on the left upper lobe suggestive of ongoing pneumonia has minimum cough negative for Influenza A and B no evidence of sepsis normal Prolactin level ( 0.31) . leukocytosis has resolved elevated Lactic acid - tissue hypoxemia due to respiratory failure -improved empiric abx with Zosyn ( day # 5 ) for Community acquired pneumonia ( ist day of therapy 04/19/17 ) was on vancomycin /Zosyn /Levaquin ( 04/19-04/20 ) 2 days Abx D/micheal completed # 7 days of tx METASTATIC LUNG /LIVER AND SUB CUTANEOUS NODULE/METASTATIC MELANOMA : Due to Metastatic Melanoma hx of melanoma/ previous hx of prostate cancer/ thyroid mass Malignant Melanoma in situ s/p rt nasal side wall removal on 09/27/[address] [facility] in [facility] had additional resection from the left side of nasal sidewall on 10/10/2016 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 Heme Onc consulted, appreciate input S/p USG guided biopsy of left hip sub q mass Pathology SHOWS MALIGNANT METASTATIC MELANOMA very poor prognosis -advance /aggressive metastatic Melanoma , very limited tx option /limited life expectancy Heme onc updated pt will be discharged home tomorrow , will continue to follow up with Heme onc as out pt for discussion of possible tx options HX OF Myasthenia Gravis no muscle weakness detected at this time on Azathioprine 50 mg daily /Pyridostigmine 60 mg QID on PO Prednisone 60 mg daily appreciate neurology eval no change in medication indicated given hx of MG , pt may not be able to receive immune therapy for malignant melanoma HX OF POLYCYTHEMIA VERA: JAK2 mutation -negative normal EPO level was treated with Intermittent Phlebotomy H/H 13.7 , 11.7 stable Heme onc following HTN BP stable continue amlodipine HCTZ on hold for hypokalemia Hypothyroidism TSH WNL _ 0.727 continue Synthroid FULL CODE-very poor prognosis will discuss with pt regarding code status Patient has a living will Son, Danilo Shaikh (Stephane Shaikh Jr.) named as primary health care agent / Margarita (Harmony) and daughter Brandy as alternatives. At end stage, patient would not want any heroic measures. For now, he remains a level one full code. DVT PROPHYLAXIS moderate risk due to possible metastatic disease sub q Lovenox DISPOSITION very poor prognosis 2 step exercise ordered to assess home 02 need discharged home tomorrow social service consulted for discharge planning Medicine follow up with Dr Hernandez Vital Signs: Date Time Temp Pulse Resp B/P (MAP) Pulse Ox O2 Delivery O2 Flow Rate FiO2 04/25/17 11:45 36.4 64 18 95 Nasal Cannula 04/25/17 08:00 Nasal Cannula 2.0 04/25/17 07:37 36.4 64 18 145/76 (99) 95 Nasal Cannula 2.0 04/25/17 00:00 Nasal Cannula 2.0 04/24/17 23:41 36.4 65 19 144/85 (104) 93 Nasal Cannula 2.0
[2017-04-24] MEDS: ENOXAPARIN 40 MG/0.4 ML SYR SQ SCH (20:30)
--- NOTE | 2017-04-24 21:09 | Hematology/Oncology Prog Note ---
Hematology/Onc Progress Note Date of Service Apr 24, 2017. Subjective I saw him at bedside at around 5:30 p.m., his , his son and daughter well also bedside, I reviewed his chart, since today morning, he is on nasal cannula supplemental oxygen at 4 L/min, over to saturation is around 965 - 97%, no fever , hemodynamically he has remained stable. He says that his shortness of breath has improved to some extent. No increasing chest pain. Dry cough present. No hemoptysis, no new abdominal symptoms, no leg edema. Good appetite, no weight loss, denies any increasing back pain or bone pain, no focal neurological symptoms. Able to stand at the bedside without any new symptoms. He has underlying myasthenia gravis, no new doses other than slight changes noted in the left eyelid which is there for some time, no speech disturbances, presently he is on Mestinon (60 mg 4 times a day), Imuran (50 mg) and prednisone at 60 mg per day. His usual dose of prednisone is around 30 mg per day. He is on Lovenox prophylaxis. Blood culture negative. Now he is off the antibiotic treatment. Biopsy from left hip intramuscular soft tissue mass--> malignant cells, consistent with metastatic melanoma. MITF positive (myelocyte marker), Will test for BRAF mutation. (04/22/2017). Blood workup done on 04/22/2017: -WBC 9000, H&H of 11.5/39.5, Platelet count of 406,000. -BUN/Creat: Is 20/0.8, calcium 8.4, phosphorus 3.2. I reviewed with the patient as well as family members regarding the diagnosis of metastatic melanoma (has involvement of the lungs, liver, multiple soft tissue implants involving intramuscular metastatic deposits. Improvement of the pulmonary symptoms noted, requiring less oxygen, nowadays he is on nasal cannula supplemental oxygen at 4 liters/minute and no worsening myasthenia gravis symptoms. Will test melanoma cells for BRAF mutation (which can be positive 50% of cases close. If he has positive, will consider specific treatment for BRAF positive melanoma with Dabrafenib and the Trametinib combination. Male therapy can be considered for metastatic melanoma but that treatment would be challenging with the presence of myasthenic gravis. He follows up with few physicians in [place]. I would also like to have 2nd opinion from [facility] regarding further management in his case. Vital Signs Vital Signs Past 12 Hours Date Time Temp Pulse Resp B/P (MAP) Pulse Ox O2 Delivery O2 Flow Rate FiO2 04/24/17 16:00 Nasal Cannula 4.0 04/24/17 14:44 36.4 80 20 149/83 (105) 97 Nasal Cannula 4.0 04/24/17 09:28 95 High Flow Oxygen 40.0 35
[2017-04-24 23:41] VITALS: BP 144/85; PULSE 65; TEMP 36.4; O2SAT 93
[2017-04-25] MEDS: LEVOTHYROXINE 50 MCG TAB PO SCH (06:19)
[2017-04-25 07:37] VITALS: BP 145/76; PULSE 64; TEMP 36.4; O2SAT 95
[2017-04-25] MEDS: PANTOprazole SOD 40 MG TAB PO SCH (08:15)
[2017-04-25] MEDS: AMLODIPINE BESYLATE 5 MG TAB PO SCH (08:16)
[2017-04-25] MEDS: CHOLECALCIFEROL 1000 INTER.UNIT TAB PO SCH (08:17)
[2017-04-25] MEDS: ASPIRIN 81 MG ECTAB PO SCH (08:17)
[2017-04-25] MEDS: PYRIDOSTIGMINE BROMIDE 60 MG TAB PO SCH (08:18)
[2017-04-25] MEDS: AZATHIOPRINE 50 MG TAB PO SCH (08:19)
--- NOTE | 2017-04-25 10:27 | Discharge Instructions ---
Discharge Instructions Date of Service Apr 25, 2017. Admission Reason for Admission: Acute Respiratory Failure Discharge Discharge Diagnosis / Problem: METASTATIC MELANOMA /HYPOXIA /RESPIRATORY FAILURE Discharge Goals Goal(s): Improve function, Increase independence, Improve disease control, Diagnostic testing, Therapeutic intervention Activity Recommendations Activity Limitations: as noted below ( TOLERATED ) . Instructions / Follow-Up Instructions / Follow-Up HOSPITAL FOLLOW UP 04/28/2017 11:00 AM Ladarius Hernandez MD General Internal Medicine [facility] FOLLOW UP WITH DR CARREON IN 2-3 WEEKS, OFFICE WILL CALL WITH APPOINTMENT PET-CT SCAN OF WHOLE SCAN ORDERED TODAY 04/25/17 FOR THE STAGING PURPOSE CAN BE DONE WITH IN A WEEK FOLLOW UP WITH DR JAMILAH STALLWORTH AT [facility] REFERAL MADE BY DR CARREON ALREADY PLEASE CALL [facility] REGARDING THE PREDNISONE TAPER YOUR NEXT APPOINTMENT IS ON : Appointment Notes [facility] prednisone F/U Date & Time Provider Department Encounter # 05/15/2017 5:00 PM [facility] PULMONOLOGY FOLLOW UP WITH DR FORREST NEEDED FOR SHORTNESS OF BREATH Current Hospital Diet Patient's current hospital diet: Regular Diet Discharge Diet Recommended Diet: Regular Diet Pending Studies Studies pending at discharge: no Medical Emergencies . Who to Call and When: Medical Emergencies: If at any time you feel your situation is an emergency, please call 911 immediately. . Non-Emergent Contact Non-Emergency issues call your: Primary Care Provider . . "Provider Documentation" section prepared by Olimpia Bernal. . VTE Core Measure Inpt VTE Proph given/why not?: Enoxaparin (Lovenox)SQ
[2017-04-25] MEDS ORDERED: PRD20 PO (10:52)
[2017-04-25] MEDS ORDERED: [UNRECOGNIZED DRUG - CODE] (10:55)
[2017-04-25] MEDS ORDERED: [UNRECOGNIZED DRUG - CODE] (11:37)
[2017-04-25 11:45] VITALS: BP 145/76; PULSE 64; TEMP 36.4; O2SAT 95
--- NOTE | 2017-04-25 18:39 | Discharge Summary ---
Discharge Summary Date of Service Apr 25, 2017. Discharge Summary Admission Date: Apr 19, 2017 at 16:18 Discharge Date: Apr 25, 2017 Discharge Disposition: Home Principal Diagnosis: METASTATIC MELANOMA /HYPOXIA /RESPIRATORY FAILURE Procedures: USG GUIDED BIOPSY : fine-needle aspiration biopsy of an intramuscular left hip mass by radiology Dr Miguel Barba M.D. on 04/22/2017 MRI OF BRAIN WITH OUT CONTRAST IMPRESSION: 1. Limited evaluation for metastatic disease without the use of IV contrast. 2. 5 x 5 mm focus of mildly increased T1 signal involving the medial aspect of the posterior right frontal lobe near the vertex adjacent to the falx cerebri as above is suspicious for possible melanoma metastasis. 3. No acute infarction identified. CT ABDOMEN/PELVIS WITH CONTRAST : IMPRESSION: Findings consistent with extensive metastatic disease with innumerable pulmonary and hepatic metastases and numerous soft tissue implants, including intramuscular metastases. This distribution raises the possibility of metastatic melanoma. Additional sites of metastatic disease, as detailed above. Discussed with Dr. Lnatigua at time of dictation. CTA OF CHEST WITH CONTRAST /PULMONARY EMBOLISM PROTOCOL : IMPRESSION: 1. No pulmonary emboli identified although segmental and subsegmental pulmonary arteries suboptimally assessed due to respiratory motion. 2. Innumerable pulmonary nodule is consistent with extensive metastatic disease. 3. Upper lobe predominant airspace opacity within the lungs which could reflect superimposed pneumonia. 4. Mild mediastinal lymphadenopathy and multiple soft tissue implants. This is consistent with metastatic disease and this distribution raises the possibility of metastatic melanoma. Consultations: Landscape Architecture Professor Neuro Hem/Oncology Pulmonary Medication Reconciliation New Medications: Misc. Devices ([facility]vs Pulse Oximeter) 1 Mis Mis EA N/A UD, #1 Amlodipine Besylate (Amlodipine Besylate) 5 Mg Tab 7.5 MG PO DAILY for 30 Days, #45 TAB 2 Refills Prednisone (Prednisone) 20 Mg Tab 60 MG PO UD for 30 Days, #30 TAB 60MG DAILY 1 WEEK 50 MG DAILY 1 WEEK 40 MG DAILY 1 WEEK 30 MG DAILY -AND CONTINUE Continued Medications: Aspirin (Aspirin Ec) 81 Mg Tab 81 MG PO DAILY Azathioprine (Imuran) 50 Mg Tab 50 MG PO DAILY, TAB Cholecalciferol (Vitamin D3) 2,000 Unit Cap 1 CAP PO DAILY, CAP Levothyroxine Sodium (Levothyroxine Sodium) 50 Mcg Tab 1 TAB PO DAILY, TAB Omeprazole (Prilosec) 40 Mg Cap 40 MG PO DAILY, CAP Pyridostigmine Curtis (Mestinon) 60 Mg Tab 60 MG PO QID, TAB Discontinued Medications: Amlodipine (Norvasc) 5 Mg Tab 5 MG PO DAILY, TAB Hydrochlorothiazide (Hctz) 25 Mg Tab 25 MG PO DAILY, TAB Prednisone (Prednisone) 10 Mg Tab 1.5 TAB PO UD Referrals At Discharge Follow up Referrals: Oncology/Hematology Referral - Within 2 Weeks with Elie Duke M.D. Language And Literature Division Chair Referral - Please Call For Appointment with Tre Forrest MD Admission Information HPI (per Admitting provider): This is a 76 year old male with a PMH of myasthenia gravis on long-term pyridostigmine, azathioprine, and prednisone; hx. of hypothyroidism, HTN, melanoma, polycythemia vera - presents with a four day history of shortness of breath and dyspnea on exertion. As per patient, he has been developing this facial congestion, cough and difficulty breathing for the past four days. On the day of arrival, he was seen by primary care doctor and was found to be hypoxic in the upper 70's. He was sent to the ED for further evaluation. In the ED, patient was found to be hypoxic on room air and was placed on 5L O2 via NC. He had a CXR which favored bilateral pneumonia and he was started on antibiotics. He denied chest pain or palpitations. Denied fevers/chills. After the admission, pulmonary saw the patient and decided that due to increased work of breathing, patient should be transferred to the ICU. Chest CT was then performed and patient was found to have nodular appearance likely secondary to metastatic melanoma. Abdominal CT was also performed - which suggested metastatic disease to liver and intramuscularly. Patient was then placed on bipap for improved oxygenation. Physical Exam (per Admitting): General Appearance: + moderate distress (secondary to shortness of breath), + pertinent finding (unable to complete full sentences without shortness of breath) Head: normocephalic, atraumatic Eyes: normal inspection ENT: hearing grossly normal Respiratory/Chest: chest non-tender, + respiratory distress, + decreased breath sounds, + crackles Cardiovascular: regular rate, rhythm, no edema, no gallop, no JVD, no murmur , normal peripheral pulses Abdomen/GI: normal bowel sounds, non tender, soft Extremities/Musculoskelatal: normal inspection, no calf tenderness, normal capillary refill, no pedal edema, normal range of motion Neurologic/Psych: medical technologist clinical II-XII nml as tested, no motor/sensory deficits, alert , normal mood/affect, oriented x 3 Skin: normal color Lymphatic: no adenopathy Hospital Course no complain of SOB , minimum SOB 2 step exercise today shows , no 02 requirement at rest , will need 3 L 02 via NC on activity /ambulation arrangements made for home o2 stable to be discharged home today P/E: Exam: General-well appearing male, comfortable , no sign of respiratory distress . Conversing , in good spirit Eyes-sclera non icteric , PERRLA/EOMI Neck-no JVD Lungs-diminished breath sound at base , no wheeze or rales Heart-regular S1/S2 , no JVD , no lower ext edema Abdomen-soft , non tender Extremities-no rash or deformity Neuro-AAO x3, no focal neurological deficit ACUTE HYPOXEMIC RESPIRATORY FAILURE : improved able to be weaned off high flow 02 , transitioned to nasal canula Results of 2 Step Exercise Test * Patient qualifies for Home O2 with ambulation. arrangements made for home 02 respiratory failure possible due to tumor emboli to lungs - CTA chest showed Innumerable nodules throughout the lungs. Although nonspecific , extensive metastatic disease is favored. Upper lobe predominant airspace opacity within the lungs. NO PE identified presented with progressive SOB /ARIAS , hypoxic in RA spo2 80% required ICU for respiratory support High flow 02 required Fio2 70-80% to maintain adequate 02 saturation appreciate input from Landscape Architecture Professor and Language And Literature Division Chair respiratory status gradually improved discharged with taper dose of PO Prednisone 60 mg Pathology report form Left hip mass biopsy -shows Metastatic melanoma very poor prognosis pt will be followed with [facility] onc Dr Elie Duke referral made for out pt Follow up at [facility] onc center in [facility] COMMUNITY ACQUIRED PNEUMONIA completed abx tx left upper lobe airspace density noted CT chest Cxray 04/20 mildly worsened airspace opacities on the left upper lobe suggestive of ongoing pneumonia has minimum cough negative for Influenza A and B no evidence of sepsis normal Prolactin level ( 0.31) . leukocytosis has resolved elevated Lactic acid - tissue hypoxemia due to respiratory failure -improved empiric abx with Zosyn ( day # 5 ) for Community acquired pneumonia ( ist day of therapy 04/19/17 ) was on vancomycin /Zosyn /Levaquin ( 04/19-04/20 ) 2 days Abx D/micheal completed # 7 days of tx METASTATIC LUNG /LIVER AND SUB CUTANEOUS NODULE/METASTATIC MELANOMA : Due to Metastatic Melanoma hx of melanoma/ previous hx of prostate cancer/ thyroid mass Malignant Melanoma in situ s/p rt nasal side wall removal on 09/27/[address] [facility] in [facility] had additional resection from the left side of nasal sidewall on 10/10/2016 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 Heme Onc consulted, appreciate input S/p USG guided biopsy of left hip sub q mass Pathology SHOWS MALIGNANT METASTATIC MELANOMA very poor prognosis -advance /aggressive metastatic Melanoma , very limited tx option /limited life expectancy Heme onc updated pt is discharged home today will continue to follow up with Heme onc as out pt for discussion of possible tx options referral made for follow up at Cancer center in [facility] by Dr Duke HX OF Myasthenia Gravis no muscle weakness detected at this time on Azathioprine 50 mg daily /Pyridostigmine 60 mg QID on PO Prednisone 60 mg daily -will be discharged on slow taper appreciate neurology eval no change in medication indicated given hx of MG , pt may not be able to receive immune therapy for malignant melanoma HX OF POLYCYTHEMIA VERA: JAK2 mutation -negative normal EPO level was treated with Intermittent Phlebotomy H/H 13.7 , 11. stable Heme onc following HTN BP stable continue amlodipine HCTZ on hold for hypokalemia Hypothyroidism TSH WNL _ 0.727 continue Synthroid FULL CODE-very poor prognosis will discuss with pt regarding code status Patient has a living will Son, Danilo Shaikh (Stephane Shaikh Jr.) named as primary health care agent / Margarita (Harmony) and daughter Brandy as alternatives. At end stage, patient would not want any heroic measures. For now, he remains a level one full code. DVT PROPHYLAXIS moderate risk due to possible metastatic disease sub q Lovenox DISPOSITION stable to be discharged home today with home Medicine follow up with Dr Hernandez Heme onc follow up with Dr Elie Duke Total time spent on discharge = 50 mins This includes examination of the patient, discharge planning, medication reconciliation, and communication with other providers. Discharge Instructions Discharge Instructions Date of Service Apr 25, 2017. Admission Reason for Admission: Acute Respiratory Failure Discharge Discharge Diagnosis / Problem: METASTATIC MELANOMA /HYPOXIA /RESPIRATORY FAILURE Discharge Goals Goal(s): Improve function, Increase independence, Improve disease control, Diagnostic testing, Therapeutic intervention Activity Recommendations Activity Limitations: as noted below ( TOLERATED ) . Instructions / Follow-Up Instructions / Follow-Up HOSPITAL FOLLOW UP 04/28/2017 11:00 AM Ladarius Hernandez MD General Internal Medicine [facility] HEME ONC FOLLOW UP WITH DR DUKE IN 2-3 WEEKS, OFFICE WILL CALL WITH APPOINTMENT PET-CT SCAN OF WHOLE SCAN ORDERED TODAY 04/25/17 FOR THE STAGING PURPOSE CAN BE DONE WITH IN A WEEK FOLLOW UP WITH DR JAMILAH STALLWORTH AT [facility] REFERAL MADE BY DR DUKE ALREADY PLEASE CALL [facility] REGARDING THE PREDNISONE TAPER YOUR NEXT APPOINTMENT IS ON : Appointment Notes Imuran, prednisone F/U Date & Time Provider Department Encounter # 05/15/2017 5:00 PM [facility], [facility] PULMONOLOGY FOLLOW UP WITH DR FORREST NEEDED FOR SHORTNESS OF BREATH Current Hospital Diet Patient's current hospital diet: Regular Diet Discharge Diet Recommended Diet: Regular Diet Pending Studies Studies pending at discharge: no Medical Emergencies . Who to Call and When: Medical Emergencies: If at any time you feel your situation is an emergency, please call 911 immediately. . Non-Emergent Contact Non-Emergency issues call your: Primary Care Provider . . "Provider Documentation" section prepared by Olimpia Bernal. . VTE Core Measure Inpt VTE Proph given/why not?: Enoxaparin (Lovenox)SQ Additional Copies To Elie Duke M.D. Doberstein, Ladarius Gutierrez MD
--- NOTE | 2017-04-29 07:32 | EDITING REQUIRED CODING QUERY ---
CODING QUERY To promote full compliance with coding requirements relating to patient care, provider participation is requested in all cases of community product specialist uncertainty. Please assist us with the question(s) below: Coding Question(s): There is documentation of Acute Hypoxemic Respiratory Failure with respiratory failure possible due to tumor emboli to lungs. Please clarify below, in your clinical opinion, regarding the tumor emboli to lungs. ( ) Tumor Emboli to lungs means Pulmonary Embolism ( )Tumor Emboli to lungs means Lung Cancer ( X) Tumor Emboli to lungs means other: Specify METASTATIC MELANOMA WITH METS TO LUNG Physician's Response(s): Thank you Nadine Dominguez Principal Diagnosis: "_that condition established after study, to be chiefly responsible for occasioning the admission of the patient to the hospital for care." Co-Existing Principal Diagnosis: "_when two or more diagnoses equally meet the criteria for principal diagnosis as determined by the circumstances of admission, diagnostic work up, and/or therapy provided, and the Alphabetic Index, Tabular List, or another coding guideline does not provide sequencing direction, any one of the diagnoses may be sequenced first." "When the physician has documented what appears to be a current diagnosis in the body of the record, but has not included the diagnosis in the final diagnostic statement, the physician should be asked whether the diagnosis should be added." (Source Coding Clinic 2 QTR90. p3-4)
[2017-05-03] MEDS ORDERED: LVNIS100 SQ (11:58)
== END 2017-04-25 14:50 | disposition home or self-care (01) | DRG 981 ==
LOC: EDBD 11:58 → C.EDC 11:59 → ENRESERV 15:08 → CANRESERV 15:08 → ENRESERV 15:32 → EDBEDREQSVC 15:32 → C.MSICU 16:18 → ENRESERV 04-22 11:15 → C.MED 04-22 11:49
PROVIDERS: ADMIT Family Medicine; ATTEND Hospitalist
PROC: 0KBP3ZX Excision of Left Hip Muscle, Percutaneous Approach, Diagnostic (ICD-10-PCS; principal; 2017-04-22)
DX: J96.01 Acute respiratory failure with hypoxia (principal); J18.9 Pneumonia, unspecified organism; C78.00 Secondary malignant neoplasm of unspecified lung; C79.89 Secondary malignant neoplasm of other specified sites; C78.7 Secondary malignant neoplasm of liver and intrahepatic bile duct; E87.2 Acidosis; E87.6 Hypokalemia; G70.00 Myasthenia gravis without (acute) exacerbation; D45 Polycythemia vera; H54.8 Legal blindness, as defined in USA; I10 Essential (primary) hypertension; E03.9 Hypothyroidism, unspecified; Z51.81 Encounter for therapeutic drug level monitoring; Z79.899 Other long term (current) drug therapy; Z79.82 Long term (current) use of aspirin; Z79.52 Long term (current) use of systemic steroids; Z85.820 Personal history of malignant melanoma of skin; Z85.46 Personal history of malignant neoplasm of prostate; Z87.891 Personal history of nicotine dependence

== ENCOUNTER 2017-05-02 08:49 | Inpatient (IN) | payer BC, OTHER ==
[2017-05-02] VITALS (7 sets, daily range): BP systolic 125–129; BP diastolic 73–76; PULSE 68–88; TEMP 35.9–37.2; O2SAT 92–98; Ht 172.7 cm; Wt 95.2 kg
[~2017-05-02] VITALS: Ht 172.7 cm; Wt 95.2 kg
[~2017-05-02 08:49] MED LIST: ASPI81TA28 PO; AZAT50TA17 PO; CHOL2000 PO; LEVO50TA6 PO; NRV5 PO; OMEP40CA41 PO; PRD20 PO; PYRI60TA2 PO; [UNRECOGNIZED DRUG - CODE]
--- NOTE | 2017-05-02 09:29 | EMERGENCY ROOM VISIT NOTE ---
History Report prepared by Taco: Juana Vieira Under the Supervision of: Dr. Angela Vega M.D. First contact with patient: 09:10 Chief Complaint: SHORTNESS OF BREATH Stated Complaint: CHECK OXYGEN LEVEL Nursing Triage Summary: pt reports he was seen here on apr 20 dx with pneumonia, today feels sob bilat legs swollen History of Present Illness The patient is a 76 year old male who presents to the Emergency Room with complaints of constant shortness of breath beginning this morning. The patient was in the ED on April 20 and was diagnosed with pneumonia. The patient was discharged home with oxygen. Per , when in the ED they also found "spots " on the patient's lungs. He followed up with Dr. Duke for the "spots" on his lungs. The patient had a biopsy and will be going to [facility] in May because his case is "more specialized" due to his other outstanding medical problems. The patient was supposed to a full body scan last week but the machine malfunctioned and he has been unable to reschedule since. He notes some chest discomfort but denies pain with a deep breath. His pain is temporarily relieved when sitting up. He notes a clear productive cough but denies any fever. Per , the patient's oxygen saturation went down to 83 percent this morning. Source of History: patient Onset: this morning Position: other (global) Quality: other (shortness of breath) Timing: constant Modifying Factors (Relieving): other (sitting up ) Associated Symptoms: + cough, + chest pain, + SOB, No fevers Review of Systems See HPI for pertinent positives & negatives. A total of 10 systems reviewed and were otherwise negative. Past Medical & Surgical Medical Problems: (1) Acute respiratory failure with hypoxia (2) Larry esophagus (3) Bilateral pneumonia (4) HTN (hypertension) (5) Hypokalemia (6) Hypothyroidism (7) Legal blindness (8) Malignant melanoma, metastatic (9) Myasthenia gravis (10) Polycythemia vera Family History Patient reports no known family medical history. Social History Smoking Status: Never Smoker Alcohol Use: none Drug Use: none Marital Status: Housing Status: lives with family Current/Historical Medications Scheduled Amlodipine (Norvasc), 7.5 MG PO QAM Aspirin (Aspirin Ec), 81 MG PO DAILY Azathioprine (Imuran), 50 MG PO QPM Cholecalciferol (Vitamin D3), 2,000 UNIT PO DAILY Enoxaparin (Enoxaparin Sodium), 100 MG SQ Q12H Levothyroxine Sodium (Levothyroxine Sodium), 1 TAB PO DAILY Omeprazole (Prilosec), 40 MG PO DAILY Prednisone (Prednisone), 50 MG PO DAILY Pyridostigmine Henley (Mestinon), 60 MG PO QID Durable Medical Equipment Misc. Devices ([facility]vs Pulse Oximeter), EA N/A UD Allergies Coded Allergies: Quinolones (Verified Allergy, Severe, MYASTHENIA GRAVIS PT, 05/02/17) Physical Exam Vital Signs Date Time Temp Pulse Resp B/P (MAP) Pulse Ox O2 Delivery O2 Flow Rate FiO2 05/02/17 12:00 80 22 114/72 88 Nasal Cannula 6.0 05/02/17 12:00 86 28 114/72 86 Nasal Cannula 6.0 05/02/17 11:00 93 20 123/74 97 BiPAP 05/02/17 10:31 128/85 05/02/17 10:12 97 33 95 BiPAP 50 05/02/17 10:07 87 25 95 BiPAP 50 05/02/17 10:01 130/72 05/02/17 09:55 85 16 116/68 98 BiPAP 50 05/02/17 09:54 116/68 05/02/17 09:49 86 20 98 BiPAP 50 05/02/17 09:48 88 98 50 05/02/17 09:37 89 22 90 05/02/17 09:32 91 27 130/69 87 Mask 7.0 05/02/17 09:21 91 25 94 05/02/17 09:17 95 Non-Rebreather 15.0 05/02/17 09:16 92 31 95 Non-Rebreather 15.0 05/02/17 09:13 90 05/02/17 09:11 91 30 141/82 95 Non-Rebreather 15.0 05/02/17 08:55 36.6 96 24 104/44 80 Nasal Cannula 3.0 Physical Exam Vital signs reviewed. General: Dusky-appearing male, in no significant distress. HEENT: No scleral icterus, PERRLA, neck supple. Atraumatic. Cardiovascular: Regular rate and rhythm, no extra sounds. Pulmonary: Clear to auscultation bilaterally, increased work of breathing. Abdomen: Soft, nontender, nondistended, positive bowel sounds. Musculoskeletal: Atraumatic, no peripheral edema. Neurologic: Patient awake alert and oriented x 3, full strength in all 4 extremities. Cranial nerves 2 through 12 grossly intact. Skin: Warm, dry, no rash Medical Decision & Procedures ER Provider Diagnostic Interpretation: Radiology results as stated below per my review and radiologist interpretation: CHEST ONE VIEW PORTABLE FINDINGS: There is no pneumothorax or pleural effusion. Innumerable pulmonary nodules are again noted and are consistent with metastatic disease. Left upper lobe superimposed airspace opacity shown exam of April 20, 2017 has improved. However, right mid and left mid to upper lung airspace opacities may be present. Cardiomediastinal silhouette is stable. Patient is mildly rotated. IMPRESSION: Innumerable bilateral pulmonary nodules consistent with extensive metastatic disease. Redemonstration of bilateral airspace opacities which could reflect superimposed pneumonia. Electronically signed by: Andre Tripathi M.D. Laboratory Results Test 05/02/17 09:30 05/02/17 09:37 05/02/17 10:28 Immature Granulocyte % (Auto) 0.6 % White Blood Count 21.02 K/uL (4.8-10.8) Red Blood Count 5.05 M/uL (4.7-6.1) Hemoglobin 12.5 g/dL (14.0-18.0) Hematocrit 40.0 % (42-52) Mean Corpuscular Volume 79.2 fL (80-100) Mean Corpuscular Hemoglobin 24.8 pg (25-34) Mean Corpuscular Hemoglobin Concent 31.3 g/dl (32-36) Platelet Count 348 K/uL (130-400) Mean Platelet Volume 9.8 fL (7.4-10.4) Neutrophils (%) (Auto) 94.7 % Lymphocytes (%) (Auto) 2.6 % Monocytes (%) (Auto) 2.1 % Eosinophils (%) (Auto) 0.0 % Basophils (%) (Auto) 0.0 % Neutrophils # (Auto) 19.87 K/uL (1.4-6.5) Lymphocytes # (Auto) 0.55 K/uL (1.2-3.4) Monocytes # (Auto) 0.45 K/uL (0.11-0.59) Eosinophils # (Auto) 0.01 K/uL (0-0.5) Basophils # (Auto) 0.01 K/uL (0-0.2) Immature Granulocyte # (Auto) 0.13 K/uL (0.00-0.02) Nucleated RBC Absolute Count (auto) 0.05 K/uL (0-0) Nucleated Red Blood Cells % 0.2 % Magnesium Level 1.9 mg/dl (1.8-2.4) Direct Bilirubin 0.8 mg/dl (0-0.2) Pro-B-Type Natriuretic Peptide 328 pg/ml (0-900) Bedside Troponin I 0.070 ng/ml (0-0.045) Arterial Blood pH 7.46 (7.35-7.45) Arterial Blood Partial Pressure CO2 34 mmHg (35-46) Arterial Blood Partial Pressure O2 73 mm/Hg (80-95) Arterial Blood HCO3 23 mmol/L (19-24) Arterial Blood Oxygen Saturation 93.7 % (90-95) Arterial Blood Base Excess 0.0 mEq/L (-9-1.8) Arterial Blood Gas Delivery FIO2 50% Morro Test POS (POS) Laboratory results per my review. Medications Administered Medications (Trade) Dose Ordered Sig/Kevin Route Start Time Stop Time Status Last Admin Dose Admin Albuterol/ Ipratropium (Duoneb) 3 ml NOW STAT INH 05/02/17 09:41 05/02/17 09:42 DC 05/02/17 09:46 3 ML Furosemide (Lasix Inj) 20 mg NOW STAT IV 05/02/17 09:41 05/02/17 09:42 DC 05/02/17 09:47 20 MG Sodium Chloride 1,000 ml @ 125 mls/hr Q8H STAT IV 05/02/17 10:53 05/02/17 14:15 DC 05/02/17 11:07 125 MLS/HR Levofloxacin (Levaquin / D5W) 750 mg NOW STAT IV 05/02/17 10:53 05/02/17 11:13 DC 05/02/17 11:07 750 MG ECG Indication: SOB/dyspnea Rate (beats per minute): 90 Rhythm: normal sinus Findings: no ectopy, other (poor quality baseline, no acute ST abnormality) ED Course 0915: Past medical records reviewed. The patient was evaluated in room A1. A complete history and physical examination was performed. 0941: Ordered Lasix Inj 20 mg IV, Duoneb 3 ml INH. 1053: Ordered Levofloxacin 750 mg IV, Sodium Chloride 1000 ml @ 125 mls/hr IV. 1116: I reviewed the patient's case with Sydney Brock. She will evaluate the patient for further management. 1132: I updated the patient on the treatment plan. He is resting comfortably and is agreeable to plan. Medical Decision Differential diagnosis: Etiologies such as infections, reactive airway disease, pneumonia, pneumothorax , COPD, CHF, cardiac ischemia, pulmonary embolism, musculoskeletal, gastrointestinal, as well as others were entertained. This patient was evaluated and appeared to be in no respiratory discomfort on high flow oxygen. Chest x-ray was obtained and revealed multiple bilateral pulmonary nodules, and is difficult to exclude underlying fluid or infection. Patient did seem to improve on BiPAP. He was given 20 mg of IV Lasix. Patient' s WBC count is elevated, he was given Levaquin 750 mg IV. He did receive a DuoNeb treatment. Patient was resting comfortably. He will be evaluated by the hospitalist service for further management. Medication Reconcilliation Current Medication List: was personally reviewed by me Blood Pressure Screening Patient's blood pressure: Normal blood pressure Blood pressure disposition: Referred to PCP (evaluated further by hospitalist) Consults Time Called: 1114 Consulting Physician: Sydney Brock Returned Call: [phone] I reviewed the patient's case with Sydney Brock. She will evaluate the patient for further management. Impression Primary Impression: Respiratory failure Additional Impressions: Hypoxia Lung cancer Scribe Attestation The scribe's documentation has been prepared under my direction and personally reviewed by me in its entirety. I confirm that the note above accurately reflects all work, treatment, procedures, and medical decision making performed by me. Departure Information Dispostion Being Evaluated By Hospitalist Prescriptions Enoxaparin (Enoxaparin Sodium) 100 Mg/Ml Inj 100 MG SQ Q12H for 1 Day Prov: Rebel Trammell MD 05/03/17 Referrals Ladarius Hernandez MD (PCP) Patient Instructions My [facility] Problem Qualifiers
[2017-05-02] MEDS ORDERED: FUROSEMIDE 40 MG/4 ML VIAL IV STA (09:41)
[2017-05-02] MEDS ORDERED: ALBUT/IPRATROP 3MG/0.5MG NEB 3 ML VIAL INH STA (09:41)
[2017-05-02 09:51] LABS: BASO ABS # 0.01 K/uL (0-0.2); COMPLETE YES; IG% 0.6 %; LYMPH % 2.6 %; LYMPH ABS # 0.55 K/uL (1.2-3.4); MEAN CELL VOLUME 79.2 fL (80-100); MEAN CORPUSCULAR HEMOGLOBIN 24.8 pg (25-34); MEAN CORPUSCULAR HGB CONC 31.3 g/dl (32-36); MEAN PLATELET VOLUME 9.8 fL (7.4-10.4); MONO % 2.1 %; NEUT % 94.7 %; PLATELET COUNT 348 K/uL (130-400); RED BLOOD COUNT 5.05 M/uL (4.7-6.1); WHITE BLOOD COUNT 21.02 K/uL (4.8-10.8)
--- NOTE | 2017-05-02 09:56 | DIAGNOSTIC IMAGING REPORT ---
CHEST ONE VIEW PORTABLE CLINICAL HISTORY: Shortness of breath. Hypoxia. COMPARISON STUDY: Chest CT April 19, 2017 and chest radiograph April 20, 2017. FINDINGS: There is no pneumothorax or pleural effusion. Innumerable pulmonary nodules are again noted and are consistent with metastatic disease. Left upper lobe superimposed airspace opacity shown exam of April 20, 2017 has improved. However, right mid and left mid to upper lung airspace opacities may be present. Cardiomediastinal silhouette is stable. Patient is mildly rotated. IMPRESSION: Innumerable bilateral pulmonary nodules consistent with extensive metastatic disease. Redemonstration of bilateral airspace opacities which could reflect superimposed pneumonia. Electronically signed by: Andre Tripathi M.D. 05/02/2017 9:54 AM Dictated Date/Time: 05/02/2017 9:51 AM
[2017-05-02 10:08] LABS: BUN/CREATININE RATIO 18.3 (10-20); CALCIUM 8.1 mg/dl (8.5-10.1); CREATININE 1.09 mg/dl (0.60-1.40); MAGNESIUM 1.9 mg/dl (1.8-2.4); POTASSIUM 3.6 mmol/L (3.5-5.1)
[2017-05-02 10:13] LABS: CKMB/CK RATIO 3.1 (0-3.0)
[2017-05-02 10:44] LABS: ALLEN TEST POS (POS); ARTERIAL BLD GAS O2 SATURATION 93.7 % (90-95); ARTERIAL BLOOD GAS HCO3 23 mmol/L (19-24); ARTERIAL BLOOD GAS PO2 73 mm/Hg (80-95); ARTERIAL BLOOD GAS pH 7.46 (7.35-7.45)
[2017-05-02 10:45] LABS: O2 ADMINISTRATION FIO2 50%
[2017-05-02] MEDS ORDERED: PRED50TA PO (10:47)
[2017-05-02] MEDS ORDERED: AMLO-110 PO (10:47)
[2017-05-02] MEDS ORDERED: CHOL2000 PO (10:49)
[2017-05-02] MEDS ORDERED: SODIUM CHLORIDE 0.9% 1000ML 1,000 ML IV STA (10:53)
[2017-05-02] MEDS ORDERED: LEVAQUIN 750MG / 150ML D5W IV STA (10:53)
[2017-05-02] MEDS ORDERED: OPTIRAY 320 IV PRN (12:30)
[2017-05-02] MEDS ORDERED: ONDANSETRON INJ 2 MG/ML 2 ML VIAL IV PRN (12:30)
[2017-05-02] MEDS ORDERED: LEVOFLOXACIN / D5W 750 MG in PREMIXED IN D5W 150 ML IV SCH (12:45)
[2017-05-02] MEDS ORDERED: VANCOMYCIN INJ 0 MG in SODIUM CHLORIDE 0.9% 500ML 500 ML IV SCH (12:45)
--- NOTE | 2017-05-02 12:53 | History and Physical ---
History & Physical Date & Time of Service: May 02, 2017 at 12:53 Chief Complaint: Check Oxygen Level Primary Care Physician: Ladarius Hernandez MD History of Present Illness Source: patient, family (at bedside), clinic records, hospital records This is a 76yo M with recently diagnosed melanoma with diffuse metastasis, chronic hypoxemic respiratory failure 2/2 lung mets, myasthenia gravis, HTN, hypothyroidism who presents with worsening SOB and a home O2 saturation reading of 83%. Was recently admitted 04/19-04/25 for acute hypoxemic respiratory failure in the setting of CAP. Had a CT of the chest/abd/pelvis with findings consistent with extensive metastatic disease with innumerable pulmonary and hepatic mass and numerous soft tissue implants, including intramuscular metastasis. Previously had malignant Melanoma in situ s/p rt nasal side wall removal on 09/27/[address] [facility] in [facility]. Was evaluated by Dr. Duke and a referral was made further evaluation at a cancer center in [facility] on 05/14. PNA was treated with zosyn and the patient was sent home on 3L NC. Blood and sputum cultures without growth. Since discharge, patient was wearing O2 continuously at home and feeling fine until last night, when he was SOB at rest. Sat up during the night because it was earlier to breath. This morning, O2 saturation was down to 83% on 3L NC so patient came to ED for further evaluation. Also endorses worsening productive cough with yellow sputum. Denies fever, chills, lightheadedness, chest pain, abd pain, nausea, vomiting, dysuria, constipation. Has chronic LE swelling but states that it is presently worse. 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 Social History Smoking Status: Former Smoker Alcohol Use: occasionally Drug Use: none Marital Status: Housing status: lives with significant other Allergies Coded Allergies: Quinolones (Verified Allergy, Severe, MYASTHENIA GRAVIS PT, 05/02/17) Home Medications Scheduled Amlodipine (Norvasc), 7.5 MG PO QAM Aspirin (Aspirin Ec), 81 MG PO DAILY Azathioprine (Imuran), 50 MG PO QPM Cholecalciferol (Vitamin D3), 2,000 UNIT PO DAILY Levothyroxine Sodium (Levothyroxine Sodium), 1 TAB PO DAILY Omeprazole (Prilosec), 40 MG PO DAILY Prednisone (Prednisone), 50 MG PO DAILY Pyridostigmine [place] (Mestinon), 60 MG PO QID Review of Systems Ten systems reviewed and negative except as noted in the HPI. Physical Exam Vital Signs Date Time Temp Pulse Resp B/P (MAP) Pulse Ox O2 Delivery O2 Flow Rate FiO2 05/02/17 12:32 87 05/02/17 12:30 88 20 123/88 96 BiPAP 05/02/17 12:00 80 22 114/72 88 Nasal Cannula 6.0 05/02/17 12:00 86 28 114/72 86 Nasal Cannula 6.0 05/02/17 11:00 93 20 123/74 97 BiPAP 05/02/17 10:31 128/85 05/02/17 10:12 97 33 95 BiPAP 50 05/02/17 10:07 87 25 95 BiPAP 50 05/02/17 10:01 130/72 05/02/17 09:55 85 16 116/68 98 BiPAP 50 05/02/17 09:54 116/68 05/02/17 09:49 86 20 98 BiPAP 50 05/02/17 09:48 88 98 50 05/02/17 09:37 89 22 90 05/02/17 09:32 91 27 130/69 87 Mask 7.0 05/02/17 09:21 91 25 94 05/02/17 09:17 95 Non-Rebreather 15.0 05/02/17 09:16 92 31 95 Non-Rebreather 15.0 05/02/17 09:13 90 05/02/17 09:11 91 30 141/82 95 Non-Rebreather 15.0 05/02/17 08:55 36.6 96 24 104/44 80 Nasal Cannula 3.0 General Appearance: no apparent distress (conversational on bipap ), + obese Head: normocephalic, atraumatic Eyes: normal inspection, PERRL, sclerae normal ENT: hearing grossly normal, + pertinent finding (bipap mask ) Neck: supple, thyroid normal, trachea midline Respiratory/Chest: chest non-tender, lungs clear, normal breath sounds, no respiratory distress, no accessory muscle use Cardiovascular: regular rate, rhythm, no murmur, normal peripheral pulses, + pertinent finding (2+ pretibial pitting edema in bilateral LE ) Abdomen/GI: non tender, soft, no organomegaly Back: normal inspection Extremities/Musculoskelatal: normal inspection, no calf tenderness, non-tender Neurologic/Psych: no motor/sensory deficits, alert, normal mood/affect, oriented x 3 Skin: normal color, warm/dry, no rash Diagnostics Laboratory Results Results Past 24 Hours Test 05/02/17 09:30 05/02/17 09:37 05/02/17 10:28 Range/Units White Blood Count 21.02 4.8-10.8 K/uL Red Blood Count 5.05 4.7-6.1 M/uL Hemoglobin 12.5 14.0-18.0 g/dL Hematocrit 40.0 42-52 % Mean Corpuscular Volume 79.2 80-100 fL Mean Corpuscular Hemoglobin 24.8 25-34 pg Mean Corpuscular Hemoglobin Concent 31.3 32-36 g/dl Platelet Count 348 130-400 K/uL Mean Platelet Volume 9.8 7.4-10.4 fL Neutrophils (%) (Auto) 94.7 % Lymphocytes (%) (Auto) 2.6 % Monocytes (%) (Auto) 2.1 % Eosinophils (%) (Auto) 0.0 % Basophils (%) (Auto) 0.0 % Neutrophils # (Auto) 19.87 1.4-6.5 K/uL Lymphocytes # (Auto) 0.55 1.2-3.4 K/uL Monocytes # (Auto) 0.45 0.11-0.59 K/uL Eosinophils # (Auto) 0.01 0-0.5 K/uL Basophils # (Auto) 0.01 0-0.2 K/uL RDW Standard Deviation 50.1 36.4-46.3 fL RDW Coefficient of Variation 17.7 11.5-14.5 % Immature Granulocyte % (Auto) 0.6 % Immature Granulocyte # (Auto) 0.13 0.00-0.02 K/uL Nucleated RBC Absolute Count (auto) 0.05 0-0 K/uL Nucleated Red Blood Cells % 0.2 % Sodium Level 137 136-145 mmol/L Potassium Level 3.6 3.5-5.1 mmol/L Chloride Level 101 98-107 mmol/L Carbon Dioxide Level 27 21-32 mmol/L Anion Gap 9.0 3-11 mmol/L Blood Urea Nitrogen 20 7-18 mg/dl Creatinine 1.09 0.60-1.40 mg/dl Est Creatinine Clear Calc Drug Dose 65.9 ml/min Estimated GFR () 76.5 Estimated GFR (Non- 66.0 BUN/Creatinine Ratio 18.3 10-20 Random Glucose 109 70-99 mg/dl Calcium Level 8.1 8.5-10.1 mg/dl Magnesium Level 1.9 1.8-2.4 mg/dl Total Bilirubin 1.5 0.2-1 mg/dl Direct Bilirubin 0.8 0-0.2 mg/dl Aspartate Amino Transf (AST/SGOT) 159 15-37 U/L Alanine Aminotransferase (ALT/SGPT) 128 12-78 U/L Alkaline Phosphatase 209 45-117 U/L Total Creatine Kinase 170 39-308 U/L Creatine Kinase MB 5.2 0.5-3.6 ng/ml Creatine Kinase MB Ratio 3.1 0-3.0 Pro-B-Type Natriuretic Peptide 328 0-900 pg/ml Total Protein 5.4 6.4-8.2 gm/dl Albumin 2.4 3.4-5.0 gm/dl Bedside Troponin I 0.070 0-0.045 ng/ml Arterial Blood pH 7.46 7.35-7.45 Arterial Blood Partial Pressure CO2 34 35-46 mmHg Arterial Blood Partial Pressure O2 73 80-95 mm/Hg Arterial Blood HCO3 23 19-24 mmol/L Arterial Blood Oxygen Saturation 93.7 90-95 % Arterial Blood Base Excess 0.0 -9-1.8 mEq/L Arterial Blood Gas Delivery FIO2 50% [place] Test POS POS Microbiology Results 05/02/17 Blood Culture, Received Pending 05/02/17 Blood Culture, Received Pending Diagnostic Radiology CXR: IMPRESSION: Innumerable bilateral pulmonary nodules consistent with extensive metastatic disease. Redemonstration of bilateral airspace opacities which could reflect superimposed pneumonia. EKG Normal sinus rhythm Nonspecific ST and T wave abnormality No change from prior EKG Impression Assessment and Plan This is a 76yo M with recently diagnosed melanoma with diffuse metastasis, chronic hypoxemic respiratory failure 2/2 lung mets, myasthenia gravis, HTN, hypothyroidism who presents with worsening SOB and a home O2 saturation reading of 83%. Acute on chronic hypoxemic respiratory failure: -In setting of bilateral lower lobe PEs, PNA, diffuse mets to lungs -Initiated bipap in ED. Saturation in the 90s -Tried weaning to 6L NC but hypoxic to mid-80s -Continue bipap with respiratory help -ABG without respiratory acidosis -Pulm consulted -Monitor on tele Bilateral lower lobe PEs: -Some concern for initiating therapeutic Lovenox in setting of brain mets -Discussed with Dr. Duke. Recommended starting -Will discuss bleeding risk with patient -No evidence of R heart strain per CT read PNA: -CXR with bilateral opacities suggestive of superimposed PNA -Leukocytosis of 21 but no signs of sepsis -Received one dose of Levaquin in ED -Can exacerbate myasthenia gravis, so monitoring closely for respiratory decline -Continue empiric abx with Zosyn, vanc -Blood, sputum cultures pending Metastatic melanoma: [place] [facility] [place] chest/abdomen/pelvis 04/20 with innumerable pulmonary and hepatic mass and numerous soft tissue implants, including intramuscular and brain metastasis -Poor prognosis -Evaluated by palliative care last admission -Still a full code, but palliative consulted again -Heme onc consulted. Dr. Duke to see patient today Mild troponin elevation: -Likely 2/2 demand ischemia -No CP, ischemic changes on EKG -CTA without R sided heart strain -Trend cardiac enzymes Transaminitis: -Likely 2/2 hepatic metastasis -Hepatitis panel negative Myasthenia gravis: -No muscle weakness detected at this time -Cont Azathioprine 50 mg daily, Pyridostigmine 60 mg QID -Solu-medrol 40mg Q8 -Caution with any medications that can exacerbate MG Polycythemia vera: -JAK2 mutation -negative -Treated with Intermittent Phlebotomy in the past -H/H stable -Heme onc consulted HTN: -Normotensive -Continue amlodipine Hypothyroidism: -Continue Synthroid DVT Ppx: Therapeutic dose lovenox Code status: FULL CODE. Son (Stephane Shaikh Jr.) named as POA during last admission. Per discussion with palliative on last admission, patient is not interested in heroic measures at end stage but remains a full code for now. Palliative to reassess. Dispo: Plan to return home once medically stable Patient seen in collaboration with Dr. Mckenzie. Please see addendum. Attending Addendum: The patient was seen and examined Was diagnosed with Metastatic Melanoma on 04/19/17 when he was admitted with Respiratory failure and Pneumonia-discharged on 04/25/17 H/O Rt nasal Nasal side Wall melanoma treated surgically on 09/27/16 at [facility] ER with SOB and Desaturation No Chest pain CTA-Bilateral lower lobes PE -started on Lovenox and admitted to Tele O/E Moderate Distress at rest Saturating well with BIPAP Chest-decreased breath sound bilaterally Bibasilar crackles Heart-regular,no murmur appreciated Abdomen-benign Extremities-bilateral 1+ pitting edema Labs and Imaging studies were reviewed Agree with the assessment and plan. Dr Magalie Mckenzie Level of Care Telemetry Resuscitation Status FULL RESUSCITATION VTE Prophylaxis VTE Risk Assessment Done? Y/N: Yes Risk Level: High Given or contraindicated: Enoxaparin (Lovenox)SQ
--- NOTE | 2017-05-02 13:27 | DIAGNOSTIC IMAGING REPORT ---
CHEST CTA for PULMONARY ARTERIES CT DOSE: 574.72 mGycm HISTORY: Atypical chest pain TECHNIQUE: Multiaxial CT images of the chest were performed following the intravenous administration of contrast to evaluate the pulmonary arteries. Maximal intensity projection images were also obtained. A dose lowering technique was utilized adhering to the principles of ALARA. COMPARISON STUDY: Chest CTA 04/19/2017. FINDINGS: Normal caliber thoracic aorta with no evidence for dissection. There are bilateral lower lobe segmental and subsegmental pulmonary emboli. The main pulmonary arteries remain patent. No significant right-sided heart strain at this time. No pleural or pericardial effusions. Mild mediastinal and hilar lymphadenopathy persists. The right thyroid lobe is surgically absent. Progression of the scattered soft tissue nodules within the visualized abdomen. Hepatic metastatic deposits are again noted with the largest in the right hepatic lobe measuring 2.3 cm. Progression of the soft tissue nodule/lymph nodes within the bilateral axilla. No suspicious lytic or blastic osseous lesions. No pneumothorax. The central airways are patent. Innumerable pulmonary nodules with conglomerate masslike opacification in the apices has progressed which is consistent with metastatic disease. Dominant nodule within the left lower lobe measures 2.2 cm, unchanged. IMPRESSION: 1. Bilateral lower lobe pulmonary emboli. 2. No evidence for right-sided heart strain. 3. Progression of metastatic disease most pronounced within the lungs as described above. Electronically signed by: Howard Lewis M.D. 05/02/2017 1:25 PM Dictated Date/Time: 05/02/2017 1:17 PM
[2017-05-02] MEDS ORDERED: VANCOMYCIN INJ 2,500 MG in SODIUM CHLORIDE 0.9% 500ML 500 ML IV STA (14:03)
[2017-05-02] MEDS ORDERED: VANCOMYCIN CONSULT ACTIVE PRN (14:15)
[2017-05-02] MEDS ORDERED: PIPERACILL/TAZOBAC CONSULT ACTIVE PRN (14:15)
[2017-05-02] MEDS ORDERED: PIPERACILL/TAZOBAC IV 3.375 GM in DEXTROSE 5% 100ML IV ONE (14:15)
--- NOTE | 2017-05-02 14:26 | Pharmacy Progress Note ---
Pharmacy Abx Initial Consult Date of Service May 02, 2017. Pharmacy Dosing Scope Date of Consult: 05/02/17 Consultation requested by: Sydney Gordillo Pharmacy is consulted to initiate Vanco/Zosyn IV dosing therapy, order appropriate labs and adjust drug dose/frequency. Subjective The patient is a 76 year old male admitted on May 02, 2017 at 12:21. Objective Height (Feet): 5 Height (Inches): 8.00 Weight (Kilograms): 96.400 Vital Signs (Past 12Hrs) Vital Signs Past 12 Hours Date Time Temp Pulse Resp B/P (MAP) Pulse Ox O2 Delivery O2 Flow Rate FiO2 05/02/17 13:28 77 97 50 05/02/17 12:32 87 05/02/17 12:30 88 20 123/88 96 BiPAP 05/02/17 12:00 80 22 114/72 88 Nasal Cannula 6.0 05/02/17 12:00 86 28 114/72 86 Nasal Cannula 6.0 05/02/17 11:00 93 20 123/74 97 BiPAP 05/02/17 10:31 128/85 05/02/17 10:12 97 33 95 BiPAP 50 05/02/17 10:07 87 25 95 BiPAP 50 05/02/17 10:01 130/72 05/02/17 09:55 85 16 116/68 98 BiPAP 50 05/02/17 09:54 116/68 05/02/17 09:49 86 20 98 BiPAP 50 05/02/17 09:48 88 98 50 05/02/17 09:37 89 22 90 05/02/17 09:32 91 27 130/69 87 Mask 7.0 05/02/17 09:21 91 25 94 05/02/17 09:17 95 Non-Rebreather 15.0 05/02/17 09:16 92 31 95 Non-Rebreather 15.0 05/02/17 09:13 90 05/02/17 09:11 91 30 141/82 95 Non-Rebreather 15.0 05/02/17 08:55 36.6 96 24 104/44 80 Nasal Cannula 3.0 Lab Results (24Hrs) Laboratory Tests (24 Hours) Test 05/02/17 09:30 White Blood Count 21.02 K/uL (4.8-10.8) H Red Blood Count 5.05 M/uL (4.7-6.1) Hemoglobin 12.5 g/dL (14.0-18.0) L Hematocrit 40.0 % (42-52) L Mean Corpuscular Volume 79.2 fL (80-100) L Mean Corpuscular Hemoglobin 24.8 pg (25-34) L Mean Corpuscular Hemoglobin Concent 31.3 g/dl (32-36) L Platelet Count 348 K/uL (130-400) Mean Platelet Volume 9.8 fL (7.4-10.4) Neutrophils (%) (Auto) 94.7 % Lymphocytes (%) (Auto) 2.6 % Monocytes (%) (Auto) 2.1 % Eosinophils (%) (Auto) 0.0 % Basophils (%) (Auto) 0.0 % Neutrophils # (Auto) 19.87 K/uL (1.4-6.5) H Lymphocytes # (Auto) 0.55 K/uL (1.2-3.4) L Monocytes # (Auto) 0.45 K/uL (0.11-0.59) Eosinophils # (Auto) 0.01 K/uL (0-0.5) Basophils # (Auto) 0.01 K/uL (0-0.2) Total Creatine Kinase 170 U/L (39-308) Micro Results Date/Time Source Procedure Growth Status 05/02/17 09:15 Blood Blood Culture Pending Received 05/02/17 09:03 Blood Blood Culture Pending Received 05/02/17 13:54 Nasal MRSA DNA Surveillance Screen Pending Received Risk Factors for Resistance * Hospitalization for 48 hours or more within the past 90 days * Immunocompromised Azathioprine * Antimicrobial use within the last 90 days Assessment & Plan Pt being started on empiric Vanco/Zosyn for Pulmonary source. He was recently admitted and is immunosuppressed. He was originally ordered LVQ + Vanco but given his h/o Myasthenia gravis I recommended we switch him over to Zosyn + Vanco. I added Quinolones as an "allergy" to avoid this in the future. MRSA nares and BC both pending. May consider double Pseudomonal coverage if he doesn' t improve. Vanco: * 2500mg (26mg/kg) x1 to achieve a peak of about 37mcg/mL * Then Vanco 1500mg (15.6mg/kg) q12 * Trough ordered for 05/04 @ 0130, prior to the third dose * Goal trough 15-20mcg/mL Zosyn: * Set to receive 30 min Zosyn bolus * Then EI Zosyn 3.375g q8, appropriate for clinical status and eCrCl>20cc/min Pharmacy will continue to follow and will adjust dose/frequency as necessary. Thank you.
--- NOTE | 2017-05-02 14:28 | Pulmonary Consultation ---
History General Date of Service: May 02, 2017. Stated Complaint: Check Oxygen Level HPI The patient is a 76 year old male who presents to [facility] with complaints of Check Oxygen Level. The patient's primary care provider is Ladarius Hernandez MD. Mr. Shaikh is 76-year old pleasant male who presents with acute on chronic hypoxic respiratory failure. He has PMH of myasthenia gravis on long-term pyridostigmine, azathioprine, and prednisone; hx. of hypothyroidism, hypertension, melanoma, polycythemia vera. Patient was seen by me on last admission, 04/19/2017 when he presented with 4- day history of cough and profound hypoxemia a. CT chest, abdomen and pelvis revealed innumerable nodule consistent with metastatic disease. He was admitted to ICU for hypoxemic respiratory failure. He was treated empirically with broad spectrum antibiotics for superimposed pneumonia and with systemic corticosteroids for possible adrenal insufficiency as he is on chronic steroids for myasthenia gravis maintenance therapy and also for hypoxemia. MRI of brain showed 5x5 mm focus of increased T1 signal suspicious for cerebral metastasis as well. On 04/22/2017, he underwent ultrasound-guided biopsy of an intramuscular left hip mass consistent with metastatic melanoma. Dr. Duke, hematology/oncology is following him and he was scheduled to have PET/CT done on 04/25/2017, but this was rescheduled due to machine malfunction. He was discharged home on oxygen on 3L/min nasal cannula and prednisone taper, currently on 50 mg daily. He presents to the ED today, with complains of persistent dyspnea ns shortness of breath that started this morning. He denies any fever or chills. He does have mild chest discomfort and pleuritic chest pain with deep inspiration. This is somewhat relieved with elevation. He has mild productive cough with whitish sputum. He denies any orthopnea, paroxysmal nocturnal dyspnea. He does admit to bilateral lower extremity edema. He denies any change in the appetite or weight loss. Initial VS in the ED were Tm 36.6, pulse 96, RR 24, BP 104/44, pulse oximetry 80 % on 3L. He was subsequently placed on non-rebreather mask and oxygen levels increased to 95%. Over the course of the morning he was transferred to BIPAP 50 % with saturation 95-98%. Laboratory data shows white blood cell count 21, .5, BUN 20 and creatinine 1.09. The liver function panel was within normal limits. Troponin and BNP were normal. ABG was 7.46/34/73/23/93.7% FiO2 50%, consistent with hypoxemic respiratory failure. EKG was normal sinus rhythm at 90 beats per minute. CXR done today shows persistent innumerable bilateral pulmonary nodules consistent with extensive metastatic disease. CT chest again consistent innumerable pulmonary nodules, however bilateral lower lobe pulmonary emboli now seen. He received, Lasix 20 mg IV, Duoneb 3 ml inhalation, Levaquin 750 mg IV, NaCl @ 125 ml/h and admitted to the for further management. Historian: patient Onset: this morning Review of Systems Constitutional: reports: as stated in HPI Eyes: reports: as stated in HPI ENT: reports: as stated in HPI Cardiovascular: reports: as stated in HPI Respiratory: reports: as stated in HPI, cough, shortness of breath, ARIAS Gastrointestinal: reports: as stated in HPI Genitourinary - Male: reports: as stated in HPI Musculoskeletal: reports: as stated in HPI Integumentary: reports: as stated in HPI Neurologic: reports: as stated in HPI Psychiatric: reports: as stated in HPI Endocrine: as stated in HPI Hematologic / Lymphatic: as stated in HPI Allergic / Immunologic: as stated in HPI All Other Symptoms All Other Systems: Reviewed and Negative Past Medical History Past Medical History: Chronic hypoxemic respiratory failure Metastatic melanoma Hyperlipidemia Larry's esophagus Myasthenia gravis Hyperparathyroidism 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 No significant family history. 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 He move to [place] to be closer to family. He denies any alcohol, illicit drug use. He smoked 4-5 cigarettes per day for about 10 years. Quit 30 years ago. Hx Tobacco Use In Past Year?: No Smoking Status: Never Smoker Marital status: Allergies Coded Allergies: Quinolones (Verified Allergy, Severe, MYASTHENIA GRAVIS PT, 05/02/17) Current Medications Reported Home Medications Medications Dose Route/Sig Max Daily Dose Days Date Category Dose Instructions Vitamin D3 (Cholecalciferol) 2,000 Unit Cap 2,000 Unit PO DAILY 05/02/17 Reported Norvasc (Amlodipine Besylate) 5 Mg Tab 7.5 Mg PO QAM 05/02/17 Reported Prednisone 50 Mg Tab 50 Mg PO DAILY 05/02/17 Reported TAPER DOSAGE, JUST STARTED 50MG TODAY (05/02) FOR 7 DAYS THEN 40 FOR 7 THEN 30 FOR 7 [facility] Pulse Oximeter (Misc. Devices) 1 Mis Mis Ea N/A UD 04/25/17 Rx Aspirin Ec (Aspirin) 81 Mg Tab 81 Mg PO DAILY 04/19/17 Reported Mestinon (Pyridostigmine Amberg) 60 Mg Tab 60 Mg PO QID 04/19/17 Reported Imuran (Azathioprine) 50 Mg Tab 50 Mg PO QPM 04/19/17 Reported Prilosec (Omeprazole) 40 Mg Cap 40 Mg PO DAILY 04/19/17 Reported Levothyroxine Sodium 50 Mcg Tab 1 Tab PO DAILY 04/19/17 Reported Physical Physical Exam Vital Signs: Date Time Temp Pulse Resp B/P (MAP) Pulse Ox O2 Delivery O2 Flow Rate FiO2 05/02/17 12:32 87 05/02/17 12:30 88 20 123/88 96 BiPAP 05/02/17 12:00 80 22 114/72 88 Nasal Cannula 6.0 05/02/17 12:00 86 28 114/72 86 Nasal Cannula 6.0 05/02/17 11:00 93 20 123/74 97 BiPAP 05/02/17 10:31 128/85 05/02/17 10:12 97 33 95 BiPAP 50 05/02/17 10:07 87 25 95 BiPAP 50 05/02/17 10:01 130/72 05/02/17 09:55 85 16 116/68 98 BiPAP 50 05/02/17 09:54 116/68 05/02/17 09:49 86 20 98 BiPAP 50 05/02/17 09:48 88 98 50 05/02/17 09:37 89 22 90 05/02/17 09:32 91 27 130/69 87 Mask 7.0 05/02/17 09:21 91 25 94 05/02/17 09:17 95 Non-Rebreather 15.0 05/02/17 09:16 92 31 95 Non-Rebreather 15.0 05/02/17 09:13 90 05/02/17 09:11 91 30 141/82 95 Non-Rebreather 15.0 05/02/17 08:55 36.6 96 24 104/44 80 Nasal Cannula 3.0 General Appearance: WD/WN, uncomfortable Head: NORMOCEPHALIC, ATRAUMATIC Eyes: PERRLA, NO DISCHARGE, EOMI, SCLERAE NORMAL, CONJUNCTIVAE NORMAL ENT: NORMAL MOUTH EXAM Neck: NORMAL RANGE OF MOTION, NO TENDERNESS, TRACHEA MIDLINE, NO STRIDOR, SUPPLE, NO LYMPHADENOPATHY, NO NUCHAL RIGIDITY Respiratory: Good air entry bilaterally, + coarse crackls Cardiovascular: REGULAR RATE/RHYTHM, NORMAL S1S2, NORMAL PERIPHERAL PULSES Abdomen: NON TENDER, NORMAL BOWEL SOUNDS, NO REBOUND Back: NORMAL INSPECTION, NO MIDLINE TENDERNESS, NO CVA TENDERNESS Upper Extremities: NO EDEMA, NO DEFORMITY, NORMAL ROM Lower Extremities: NO EDEMA, NO DEFORMITY, NORMAL ROM Pulses: dorsalis pedis (R) (2+), dorsalis pedis (L) (3+) Neuro: ALERT, ORIENTED x 3, NORMAL MOTOR EXAM, NORMAL SENSATION, NORMAL CEREBELLAR EXAM, NORMAL SPEECH, NORMAL MEMORY Psychiatric: NORMAL AFFECT, NO SUICIDAL IDEATION, CONTRACTS FOR SAFETY Diagnostics Labs Results Past 24 Hours Test 05/02/17 09:30 05/02/17 09:37 05/02/17 10:28 Range/Units White Blood Count 21.02 4.8-10.8 K/uL Red Blood Count 5.05 4.7-6.1 M/uL Hemoglobin 12.5 14.0-18.0 g/dL Hematocrit 40.0 42-52 % Mean Corpuscular Volume 79.2 80-100 fL Mean Corpuscular Hemoglobin 24.8 25-34 pg Mean Corpuscular Hemoglobin Concent 31.3 32-36 g/dl Platelet Count 348 130-400 K/uL Mean Platelet Volume 9.8 7.4-10.4 fL Neutrophils (%) (Auto) 94.7 % Lymphocytes (%) (Auto) 2.6 % Monocytes (%) (Auto) 2.1 % Eosinophils (%) (Auto) 0.0 % Basophils (%) (Auto) 0.0 % Neutrophils # (Auto) 19.87 1.4-6.5 K/uL Lymphocytes # (Auto) 0.55 1.2-3.4 K/uL Monocytes # (Auto) 0.45 0.11-0.59 K/uL Eosinophils # (Auto) 0.01 0-0.5 K/uL Basophils # (Auto) 0.01 0-0.2 K/uL RDW Standard Deviation 50.1 36.4-46.3 fL RDW Coefficient of Variation 17.7 11.5-14.5 % Immature Granulocyte % (Auto) 0.6 % Immature Granulocyte # (Auto) 0.13 0.00-0.02 K/uL Nucleated RBC Absolute Count (auto) 0.05 0-0 K/uL Nucleated Red Blood Cells % 0.2 % Sodium Level 137 136-145 mmol/L Potassium Level 3.6 3.5-5.1 mmol/L Chloride Level 101 98-107 mmol/L Carbon Dioxide Level 27 21-32 mmol/L Anion Gap 9.0 3-11 mmol/L Blood Urea Nitrogen 20 7-18 mg/dl Creatinine 1.09 0.60-1.40 mg/dl Est Creatinine Clear Calc Drug Dose 65.9 ml/min Estimated GFR () 76.5 Estimated GFR (Non- 66.0 BUN/Creatinine Ratio 18.3 10-20 Random Glucose 109 70-99 mg/dl Calcium Level 8.1 8.5-10.1 mg/dl Magnesium Level 1.9 1.8-2.4 mg/dl Total Bilirubin 1.5 0.2-1 mg/dl Direct Bilirubin 0.8 0-0.2 mg/dl Aspartate Amino Transf (AST/SGOT) 159 15-37 U/L Alanine Aminotransferase (ALT/SGPT) 128 12-78 U/L Alkaline Phosphatase 209 45-117 U/L Total Creatine Kinase 170 39-308 U/L Creatine Kinase MB 5.2 0.5-3.6 ng/ml Creatine Kinase MB Ratio 3.1 0-3.0 Pro-B-Type Natriuretic Peptide 328 0-900 pg/ml Total Protein 5.4 6.4-8.2 gm/dl Albumin 2.4 3.4-5.0 gm/dl Bedside Troponin I 0.070 0-0.045 ng/ml Arterial Blood pH 7.46 7.35-7.45 Arterial Blood Partial Pressure CO2 34 35-46 mmHg Arterial Blood Partial Pressure O2 73 80-95 mm/Hg Arterial Blood HCO3 23 19-24 mmol/L Arterial Blood Oxygen Saturation 93.7 90-95 % Arterial Blood Base Excess 0.0 -9-1.8 mEq/L Arterial Blood Gas Delivery FIO2 50% [place] Test POS POS Microbiology Results 05/02/17 Blood Culture, Received Pending 05/02/17 Blood Culture, Received Pending Diagnostic Radiology CHEST ONE VIEW PORTABLE CLINICAL HISTORY: Shortness of breath. Hypoxia. COMPARISON STUDY: Chest CT April 19, 2017 and chest radiograph April 20, 2017. FINDINGS: There is no pneumothorax or pleural effusion. Innumerable pulmonary nodules are again noted and are consistent with metastatic disease. Left upper lobe superimposed airspace opacity shown exam of April 20, 2017 has improved. However, right mid and left mid to upper lung airspace opacities may be present. Cardiomediastinal silhouette is stable. Patient is mildly rotated. IMPRESSION: Innumerable bilateral pulmonary nodules consistent with extensive metastatic disease. Redemonstration of bilateral airspace opacities which could reflect superimposed pneumonia. EKG EKG 05/02/2017 Normal sinus rhythm, [address] and T wave abnormality Abnormal ECG Impression Assessment and Plan Acute on chronic hypoxemic respiratory failure Melanoma with metastasis to brain, bone, lung, liver Pulmonary emboli Myasthenia gravis Hypothyroidism Mr Shaikh has the unfortunate diagnosis of metastatic melanoma to multiple organ including the lung. He now presents with one day history of worsening dyspnea and cough. CT chest with contrast now shows bilateral pulmonary emboli. Likely provoked from underlying malignancy. Overall Mr. Shaikh has a very prognosis. He does not have much respiratory reserve. At the current time, I would treat him for acute pulmonary emboli. In his case, Lovenox is the best option for patient's with malignancy. He should remain on this for the remainder of his life, unless otherwise contraindicated, ie, life- threatening bleeding. Continue with supplemental oxygenation to maintain SaO2 > 92%. He likely switch between high flow nasal and BIPAP as tolerated. Continue with nebulizer treatments prn. WBC is likely elevated due to steroids and previous groundglass opacities seen on prior CT chest have resolved. I do not think antibiotics are needed at this time as we have a likely cause for his worsening shortness and cough. Continue with steroid taper. Recommend hematology/oncology to follow up while inpatient. He still need PET/ CT for staging. Continue all other management per primary team. His overall prognosis is poor. Recommend palliative care consult to address goals of care. I appreciated the consult. Please contact me if you have any other questions or concerns.
[2017-05-02 14:36] LABS: INFLUENZA A PCR Neg for Influ A (NEG); INFLUENZA B PCR Neg for Influ B (NEG)
[2017-05-02] MEDS: METHYLPREDNISOLONE IV 40 MG in SYRINGE 0 ML IV SCH ×2 (15:16→21:45)
[2017-05-02] MEDS: PYRIDOSTIGMINE BROMIDE 60 MG TAB PO SCH ×3 (15:17→20:05)
[2017-05-02] MEDS ORDERED: ENOXAPARIN 40 MG/0.4 ML SYR SC SCH (16:00)
--- NOTE | 2017-05-02 18:54 | Medical Consult ---
Consultation Date of Consultation: May 02, 2017. Attending Physician: Rebel Trammell MD History of Present Illness Hematology/Oncology consult: Evaluation management of metastatic melanoma. Date of consultation: 05/02/[address] Mckenzie. HPI: 76-year-old male, who is known to me from the recent hospitalization has few comorbid conditions as outlined below: -Myasthenia gravis, on Mestinon, Azathoprine and prednisone. -Hypothyroidism - Polycythemia vera, treated with intermittent phlebotomy. Normal EPO level and BRENDA 2 mutation negative. -Melanoma of the situ removed from the right side of the nose. (Sep, 2016). During recent hospitalization in the hospital (he had acute on chronic hypoxic respiratory failure, requiring significant oxygen therapy, between 04/19/2017-), he underwent ultrasound-guided biopsy of the intramuscular left hip soft tissue mass, final pathology--> metastatic melanoma. BRAF mutation testing pending. Staging workup showed extensive innumerable pulmonary nodules, liver lesions, implants in the abdomen as well as intramuscular metastatic deposits. -MRI of the brain showed some 5 mm focus which could be suspicious for metastatic disease. Recently when he was admitted Hospital, he had acute on chronic hypoxic respiratory failure, he was then discharged at home with nasal cannula supplemental oxygen at 3 L/min. Since morning he started having increasing shortness of breath, no fever or chills, has some discomfort in the chest with deep breathing, cough with scanty white expectant, also some blackish sputum noted recently. He denies any increasing headache, also noticed to have some swelling in the right lower extremity but no significant local discomfort, denies any new abdominal symptoms. Now he is admitted at [facility], I saw him at bedside, his and the son was also at bedside, receiving BiPAP 50% with improvement of the O2 saturation noted. -CT scan of the chest done today showed innumerable lung nodules, bilateral lower lobe pulmonary embolism, now started him on Lovenox therapy for the diagnosis of pulmonary embolism. No new bleeding complications at this time. REVIEW OF SYSTEMS: GENERAL: No change in weight, he says that he is feeling weak and tired,, no fever, sweats or chills. SKIN: No skin rash, no bruising. HEAD: No new headache, no dizziness. EYES: No recent change in the vision, no diplopia, EARS: No earache no tinnitus, NOSE: No epistaxis, No nasal discharge or stuffiness, MOUTH: No sores, no dysphagia, no hoarseness of voice, NECK: No lumps, No swelling in thyroid area. No stiffness. PULMONARY: As described above CARDIOVASCULAR: No anginal chest pain, no PND, no orthopnea. No palpitation, no leg edema. No syncope. GASTROINTESTINAL: No abdominal pain, no nausea or vomiting. No diarrhea, No constipation. No blood in stool or black tarry stools. No abdominal distention. UROLOGIC: No burning urination. No hematuria. MUSCULOSKELETAL: No joint pain, No joint swelling, no muscle weakness. HEMATOLOGIC: No anemia, no bleeding disorder, No bruising. No history of blood transfusion. NEUROLOGIC: No seizures, no focal weakness, no speech difficulty, No memory disturbances. No tingling or numbness of the extremities. PSYCHIATRIC: No depression. He is somewhat concerned about increasing shortness of breath and 2nd admission in short period of time. No psychosis. SLEEP: No sleep disorder. Past medical and surgical history: As outlined above. Social history: Former smoker, no ETOH abuse. . Family history: Not significant Medications: Please review his chart for detailed list of medications. Allergies: None. On exam: - Alert and oriented x3, well built man, not in any distress. - HEENT: no icterus, no pallor, Throat: Normal. - Neck: No palpable cervical lymphadenopathy. - Chest: Bilateral crepitations noted.. - Abdomen: soft, nontender, no hepatomegaly, no splenomegaly. - No focal neuro deficit. - Extremities: no finger clubbing, right leg edema present. Lab: Blood workup done on 05/02/2017:-WBC 31792, H&H of 12/40, MCV 79, Platelet count of 348,000. -ANC 89927. Some nucleated RBCs noted. -BUN/Creat: 20/1.0, AST 159, ALT 120, 1 phosphatase 209, Total bilirubin: 1.5. -Pro-BNP 328. Calcium 8.1, albumin 2.4 Pathology: - Biopsy from left hip intramuscular soft tissue mass--> malignant cells, consistent with metastatic melanoma. MITF positive (myelocyte marker), Will test for BRAF mutation. (04/22/2017). Imaging: -CT scan of the chest done on 04/19/2017--> her dense of pulmonary emboli, innumerable pulmonary nodules, airspace opacity which could be superimposed pneumonia. Mild mediastinal lymphadenopathy. -CT scan of the abdomen pelvis done on 04/19/2017--> innumerable lung and hepatic metastatic disease, numerous soft tissue implants including may intramuscular metastatic implants noted. -MRI of the brain done on 04/20/2017 without contrast --> Large calcification of the falx cerebri is noted adjacent to the frontal lobes, 3.3 x 0.8 x 1.7 cm. The midline structures including the corpus callosum, brainstem, optic chiasm, pineal gland and cerebellar tonsils are unremarkable the sagittal T1 series. Evaluation for the metastatic disease limited because of lack of intravenous contrast. 5 x 5 mm focus of increased T1 signal noted involving the medial aspect of the posterior right frontal lobe near the vertex, -CT scan of chest with PE protocol done on 05/02/2017 showed bilateral lower lobe pulmonary emboli, no right-sided heart strain noted, innumerable lung nodules noted in both lungs. The largest left lower lobe nodule measuring 2.2 cm. ASSESSMENT AND PLAN: 76-year-old male, who has few comorbid conditions mainly myasthenia gravis, polycythemia, melanoma in-situ was removed from the right side of the nasal sidewall in Sep, 2016, recently when he was admitted, found to have metastatic melanoma involving multiple sites including lungs ( innumerable lung nodules practical involving bilateral lungs every where), liver , intra-abdominal, intramuscular soft tissue deposits, he received antibiotic treatment with some improvement of the pulmonary symptoms but now once again admitted for acute on chronic hypoxic respiratory failure, requiring high FiO2, imaging studies done showed evidence of bilateral lower lobe pulmonary emboli, had some questionable 5 mm lesion in the brain, now started him on Lovenox therapy, has some right lower extremity edema and there may be DVT in the right leg. BRAF mutation testing pending. If he has positive, will consider for starting Dabrafenib and Trametinib combination. Me know therapy can be considered for metastatic melanoma but I am concerned about underlying mycin negative wheeze which is likely to get worse with immunotherapy. He has an appointment with Dr. Hunter at [facility] in early May. Earlier we plan for outpatient PET-CT scan but that was not done because of some CT scan of failure. I am not sure we will be able to complete PET-CT scan at this time looking at his clinical condition. I would consider for Doppler evaluation of both lower extremities. It will not change medical management but it would help us to identify the source of the blood clot in his case. Will continue Lovenox therapy at this time I spoke with the patient 's and the son separately regarding his clinical condition, reviewed the imaging studies, blood workup findings, worsening liver function test noted also suggest liver infiltrative changes because of melanoma , overall prognosis remains quite poor. Also discussed with them regarding the role of Advance directive including DNR/DNI, they said that they have paperwork for that at home, they will bring it to the hospital. Thanks for the consultation. Dr. Elie Duke Hem/Onc (This note was completed using the dictation program Fluency Direct. As such, there may be misspellings, word substitutions, or other variations that should not change the essence of the clinical content of this encounter note. If there is need for further clarification, please direct questions to the provider listed above.) Past Medical/Surgical History Medical Problems: (1) Bilateral pneumonia Status: Acute (2) Hypoxia Status: Acute (3) Hypoxia Status: Acute Family History Patient reports no known family medical history. Social History Smoking Status: Never Smoker Alcohol Use: occasionally Drug Use: none Marital Status: Housing Status: lives with family Allergies Coded Allergies: Quinolones (Verified Allergy, Severe, MYASTHENIA GRAVIS PT, 05/02/17) Current Inpatient Medications Current Inpatient Medications Medications (Trade) Dose Ordered Sig/Kevin Route Start Time Stop Time Status Last Admin Dose Admin Ondansetron HCl (Zofran Inj) 4 mg Q6H PRN IV 05/02/17 12:30 06/01/17 12:29 Ioversol (Optiray 320) 125 ml UD PRN IV 05/02/17 12:30 05/06/17 12:29 Methylprednisolone Sodium Succinate 40 mg/Syringe 0.64 ml @ 1.5 mls/min Q8 IV 05/02/17 14:42 06/01/17 13:59 05/02/17 15:16 1.5 MLS/MIN Amlodipine Besylate (Norvasc Tab) 7.5 mg QAM PO 05/03/17 09:00 06/02/17 08:59 Aspirin (Ecotrin Tab) 81 mg DAILY PO 05/03/17 09:00 06/02/17 08:59 Azathioprine (Imuran Tab) 50 mg QPM PO 05/02/17 21:00 06/01/17 20:59 Levothyroxine Sodium (Synthroid Tab) 50 mcg DAILYBB PO 05/03/17 06:00 06/02/17 05:59 Pyridostigmine [place] (Mestinon Tab) 60 mg QID PO 05/02/17 13:00 06/01/17 12:59 05/02/17 15:17 60 MG Cholecalciferol (Vitamin D Tab) 2,000 inter.unit DAILY PO 05/03/17 09:00 06/02/17 08:59 Pantoprazole Sodium (Protonix Tab) 40 mg DAILY PO 05/03/17 09:00 06/02/17 08:59 Vancomycin HCl 1500 mg/Sodium Chloride 530 ml @ 200 mls/hr Q12H IV 05/03/17 02:00 05/10/17 01:59 Vancomycin HCl (Consult) 1 ea UD PRN N/A 05/02/17 14:15 06/01/17 14:14 Piperacillin Sod/ Tazobactam Sod 3.375 gm/Dextrose 115 ml @ 28.75 mls/ hr Q8H IV 05/02/17 20:00 05/09/17 19:59 Piperacillin Sod/ Tazobactam Sod (Consult) 1 ea UD PRN N/A 05/02/17 14:15 06/01/17 14:14 Enoxaparin Sodium (Lovenox Inj) 100 mg Q12H SQ 05/02/17 20:00 06/01/17 19:59 Physical Exam Date Time Temp Pulse Resp B/P (MAP) Pulse Ox O2 Delivery O2 Flow Rate FiO2 05/02/17 16:14 35.9 74 20 128/76 (93) 92 BiPAP 05/02/17 16:00 BiPAP 05/02/17 14:02 36.5 83 20 125/74 97 BiPAP 50 05/02/17 13:28 77 97 50 05/02/17 12:32 87 05/02/17 12:30 88 20 123/88 96 BiPAP 05/02/17 12:00 80 22 114/72 88 Nasal Cannula 6.0 05/02/17 12:00 86 28 114/72 86 Nasal Cannula 6.0 05/02/17 11:00 93 20 123/74 97 BiPAP 05/02/17 10:31 128/85 05/02/17 10:12 97 33 95 BiPAP 50 05/02/17 10:07 87 25 95 BiPAP 50 05/02/17 10:01 130/72 05/02/17 09:55 85 16 116/68 98 BiPAP 50 05/02/17 09:54 116/68 05/02/17 09:49 86 20 98 BiPAP 50 05/02/17 09:48 88 98 50 05/02/17 09:37 89 22 90 05/02/17 09:32 91 27 130/69 87 Mask 7.0 05/02/17 09:21 91 25 94 05/02/17 09:17 95 Non-Rebreather 15.0 05/02/17 09:16 92 31 95 Non-Rebreather 15.0 05/02/17 09:13 90 05/02/17 09:11 91 30 141/82 95 Non-Rebreather 15.0 05/02/17 08:55 36.6 96 24 104/44 80 Nasal Cannula 3.0 Laboratory Results Last 24 Hours Test 05/02/17 09:30 05/02/17 09:37 05/02/17 10:28 05/02/17 13:54 White Blood Count 21.02 K/uL Red Blood Count 5.05 M/uL Hemoglobin 12.5 g/dL Hematocrit 40.0 % Mean Corpuscular Volume 79.2 fL Mean Corpuscular Hemoglobin 24.8 pg Mean Corpuscular Hemoglobin Concent 31.3 g/dl Platelet Count 348 K/uL Mean Platelet Volume 9.8 fL Neutrophils (%) (Auto) 94.7 % Lymphocytes (%) (Auto) 2.6 % Monocytes (%) (Auto) 2.1 % Eosinophils (%) (Auto) 0.0 % Basophils (%) (Auto) 0.0 % Neutrophils # (Auto) 19.87 K/uL Lymphocytes # (Auto) 0.55 K/uL Monocytes # (Auto) 0.45 K/uL Eosinophils # (Auto) 0.01 K/uL Basophils # (Auto) 0.01 K/uL RDW Standard Deviation 50.1 fL RDW Coefficient of Variation 17.7 % Immature Granulocyte % (Auto) 0.6 % Immature Granulocyte # (Auto) 0.13 K/uL Nucleated RBC Absolute Count (auto) 0.05 K/uL Nucleated Red Blood Cells % 0.2 % Sodium Level 137 mmol/L Potassium Level 3.6 mmol/L Chloride Level 101 mmol/L Carbon Dioxide Level 27 mmol/L Anion Gap 9.0 mmol/L Blood Urea Nitrogen 20 mg/dl Creatinine 1.09 mg/dl Est Creatinine Clear Calc Drug Dose 65.9 ml/min Estimated GFR () 76.5 Estimated GFR (Non- 66.0 BUN/Creatinine Ratio 18.3 Random Glucose 109 mg/dl Calcium Level 8.1 mg/dl Magnesium Level 1.9 mg/dl Total Bilirubin 1.5 mg/dl Direct Bilirubin 0.8 mg/dl Aspartate Amino Transf (AST/SGOT) 159 U/L Alanine Aminotransferase (ALT/SGPT) 128 U/L Alkaline Phosphatase 209 U/L Total Creatine Kinase 170 U/L Creatine Kinase MB 5.2 ng/ml Creatine Kinase MB Ratio 3.1 Pro-B-Type Natriuretic Peptide 328 pg/ml Total Protein 5.4 gm/dl Albumin 2.4 gm/dl Bedside Troponin I 0.070 ng/ml Arterial Blood pH 7.46 Arterial Blood Partial Pressure CO2 34 mmHg Arterial Blood Partial Pressure O2 73 mm/Hg Arterial Blood HCO3 23 mmol/L Arterial Blood Oxygen Saturation 93.7 % Arterial Blood Base Excess 0.0 mEq/L Arterial Blood Gas Delivery FIO2 50% [place] Test POS Influenza Type A (RT-PCR) Neg for Influ A Influenza Type B (RT-PCR) Neg for Influ B Test 05/02/17 15:52 Total Creatine Kinase 133 U/L Creatine Kinase MB 4.0 ng/ml Creatine Kinase MB Ratio 3.0 Troponin I 0.044 ng/ml
[2017-05-02] MEDS: PIPERACILL/TAZOBAC IV 3.375 GM in DEXTROSE 5% 100ML IV SCH (20:03)
[2017-05-02] MEDS: ENOXAPARIN 100 MG/1ML SYR SQ SCH (20:04)
[2017-05-02] MEDS ORDERED: AZATHIOPRINE 50 MG TAB PO SCH (21:00)
[2017-05-03] MEDS: VANCOMYCIN INJ 1,500 MG in SODIUM CHLORIDE 0.9% 500ML 500 ML IV SCH ×2 (02:04→13:40)
[2017-05-03 03:19] VITALS: BP 152/82; PULSE 70; TEMP 36.7; O2SAT 94
[2017-05-03 04:00] VITALS: O2SAT 94
[2017-05-03] MEDS: PIPERACILL/TAZOBAC IV 3.375 GM in DEXTROSE 5% 100ML IV SCH ×2 (04:11→11:25)
[2017-05-03] MEDS: METHYLPREDNISOLONE IV 40 MG in SYRINGE 0 ML IV SCH ×2 (05:28→13:40)
[2017-05-03] MEDS ORDERED: LEVOTHYROXINE 50 MCG TAB PO SCH (06:00)
[2017-05-03 07:08] LABS: HEMATOCRIT 38.6 % (42-52); MEAN CELL VOLUME 80.1 fL (80-100); MEAN CORPUSCULAR HEMOGLOBIN 24.5 pg (25-34); MEAN CORPUSCULAR HGB CONC 30.6 g/dl (32-36); MEAN PLATELET VOLUME 9.4 fL (7.4-10.4); PLATELET COUNT 266 K/uL (130-400); RED BLOOD COUNT 4.82 M/uL (4.7-6.1); WHITE BLOOD COUNT 16.64 K/uL (4.8-10.8)
[2017-05-03 07:24] LABS: PARTIAL THROMBOPLASTIN RATIO 1.3; PROTHROMBIN TIME (PATIENT) 10.6 SECONDS (9.0-12.0)
[2017-05-03 07:40] LABS: BUN/CREATININE RATIO 20.5 (10-20); CALCIUM 8.2 mg/dl (8.5-10.1); CREATININE 0.83 mg/dl (0.60-1.40); POTASSIUM 3.6 mmol/L (3.5-5.1)
[2017-05-03 07:43] LABS: ALB/GLOB RATIO 0.6 (0.9-2)
[2017-05-03 08:13] VITALS: BP 122/69; PULSE 92; TEMP 36.7; O2SAT 92
[2017-05-03] MEDS: PYRIDOSTIGMINE BROMIDE 60 MG TAB PO SCH ×3 (08:21→16:57)
[2017-05-03] MEDS: ENOXAPARIN 100 MG/1ML SYR SQ SCH (08:22)
[2017-05-03] MEDS ORDERED: PANTOprazole SOD 40 MG TAB PO SCH (09:00)
[2017-05-03] MEDS ORDERED: ASPIRIN 81 MG ECTAB PO SCH (09:00)
[2017-05-03] MEDS ORDERED: AMLODIPINE BESYLATE 5 MG TAB PO SCH (09:00)
[2017-05-03] MEDS ORDERED: CHOLECALCIFEROL 1000 INTER.UNIT TAB PO SCH (09:00)
--- NOTE | 2017-05-03 11:18 | Progress Note ---
Internal Med Progress Note Date of Service: May 03, 2017. Provider Documentation: SUBJECTIVE: Seen ad examined at bedside Currently requiring 70% high flow oxygen to maintain sats Denies chest pain, dizziness. Not in Distress Family at bedside Patient and family requests patient to be transferred to [facility] for further management OBJECTIVE: Vital Signs-as noted below Physical Exam: General Appearance:Moderately built and nourished, no apparent distress Head: normocephalic, Atraumatic Eyes: normal inspection, EOMI, PERRL Neck: supple, Trachea midline Respiratory/Chest: Normal breath sounds, scattered creps Cardiovascular: S1, S2, No murmur Abdomen/GI:Soft, Non tender, Bowel sounds present Extremities/Musculoskelatal:normal inspection, 2+ b/l edema Neurologic/Psych:AAOX3, grossly no focal neurological deficits Skin: normal color, warm Lab data as noted below. ASSESSMENT & PLAN: Patient is a 76yr male with recently diagnosed melanoma with diffuse metastasis , chronic hypoxemic respiratory failure 2/2 lung mets, myasthenia gravis, Polycythemia Vera, HTN, hypothyroidism who presents with worsening SOB and a home O2 saturation reading of 83%. Acute on chronic hypoxemic respiratory failure: In setting of metastatic melanoma, bilateral lower lobe PEs, PNA Initially on bipap in ED. Saturation in the 90s Currently on High flow oxygen 70% Continue IV antibiotics (Vanco, Zosyn) Continue IV solu medrol Oxygen support Appreciate Pulmonology Input Patient would benefit by being transferred to Higher level of care for further management given his comorbidities and advanced disease. Patient requested [facility] as he is contact with and has a follow up in May, 2017. Given His Comorbidities, Discussed with Dr.Belinda Levy at [facility], who accepted the patient for further care. Bilateral lower lobe PEs: Likely secondary to Melanoma Continue IV Lovenox Discussed with Dr. Duke. at time of admission No evidence of R heart strain per CT read PNA: Leukocytosis improving Received one dose of Levaquin in ED Continue empiric abx with Zosyn, vanc Blood, sputum cultures pending Metastatic melanoma: [place] [facility] [place]/abdomen/pelvis 04/20 with innumerable pulmonary and hepatic mass and numerous soft tissue implants, including intramuscular and brain metastasis Poor prognosis Evaluated by palliative care last admission Patient preferred to be DNI/DNR Heme onc consulted. Appreciate Input BRAF mutation testing pending. If he has positive, will consider for starting Dabrafenib and Trametinib combination. Mild troponin elevation: Likely 2/2 demand ischemia No CP, ischemic changes on EKG CTA without R sided heart strain Trend cardiac enzymes Polycythemia Vera: Treated with intermittent phlebotomy. Normal EPO level and BRENDA 2 mutation negative Transaminitis: Likely 2/2 hepatic metastasis Hepatitis panel negative Myasthenia gravis: Continue Azathioprine 50 mg daily, Pyridostigmine 60 mg QID Solu-medrol 40mg Q8 HTN: Continue amlodipine Hypothyroidism: Continue Synthroid DVT Px: On Therapeutic dose lovenox Code status: DNI/DNR on my discussion with patient and his family Disposition: Plan to be discharged to [facility] for further care. Accepting Physician: Dr.Belinda Levy Vital Signs: Date Time Temp Pulse Resp B/P (MAP) Pulse Ox O2 Delivery O2 Flow Rate FiO2 05/03/17 15:58 36.8 72 24 132/80 (97) 95 High Flow Oxygen 50 05/03/17 12:12 36.7 91 22 128/75 (92) 94 High Flow Oxygen 50.0 70 05/03/17 12:00 High Flow Oxygen 50.0 70 05/03/17 08:30 High Flow Oxygen 50.0 70 05/03/17 08:13 36.7 92 22 122/69 (86) 92 High Flow Oxygen 50.0 70 05/03/17 04:00 94 High Flow Oxygen 50.0 70 05/03/17 03:19 36.7 70 18 152/82 (105) 94 High Flow Oxygen 05/02/17 23:59 92 High Flow Oxygen 50.0 70 05/02/17 23:59 36.8 68 20 129/73 (91) 93 High Flow Oxygen 50.0 70 05/02/17 20:00 92 High Flow Oxygen 45.0 65 05/02/17 19:15 37.2 75 20 126/75 (92) 92 High Flow Oxygen Lab Results: Results Past 24 Hours Test 05/02/17 21:42 05/03/17 06:15 Range/Units Total Creatine Kinase 133 39-308 U/L Creatine Kinase MB 4.0 0.5-3.6 ng/ml Creatine Kinase MB Ratio 3.0 0-3.0 Troponin I 0.057 0-0.045 ng/ml White Blood Count 16.64 4.8-10.8 K/uL Red Blood Count 4.82 4.7-6.1 M/uL Hemoglobin 11.8 14.0-18.0 g/dL Hematocrit 38.6 42-52 % Mean Corpuscular Volume 80.1 80-100 fL Mean Corpuscular Hemoglobin 24.5 25-34 pg Mean Corpuscular Hemoglobin Concent 30.6 32-36 g/dl RDW Standard Deviation 50.9 36.4-46.3 fL RDW Coefficient of Variation 17.7 11.5-14.5 % Platelet Count 266 130-400 K/uL Mean Platelet Volume 9.4 7.4-10.4 fL Prothrombin Time 10.6 9.0-12.0 SECONDS Prothromb Time International Ratio 1.0 0.9-1.1 Activated Partial Thromboplast Time 33.6 21.0-31.0 SECONDS Partial Thromboplastin Ratio 1.3 Sodium Level 138 136-145 mmol/L Potassium Level 3.6 3.5-5.1 mmol/L Chloride Level 102 98-107 mmol/L Carbon Dioxide Level 29 21-32 mmol/L Anion Gap 7.0 3-11 mmol/L Blood Urea Nitrogen 17 7-18 mg/dl Creatinine 0.83 0.60-1.40 mg/dl Est Creatinine Clear Calc Drug Dose 86.0 ml/min Estimated GFR () 99.8 Estimated GFR (Non- 86.1 BUN/Creatinine Ratio 20.5 10-20 Random Glucose 124 70-99 mg/dl Calcium Level 8.2 8.5-10.1 mg/dl Total Bilirubin 1.1 0.2-1 mg/dl Aspartate Amino Transf (AST/SGOT) 115 15-37 U/L Alanine Aminotransferase (ALT/SGPT) 106 12-78 U/L Alkaline Phosphatase 183 45-117 U/L Total Protein 5.1 6.4-8.2 gm/dl Albumin 2.0 3.4-5.0 gm/dl Globulin 3.1 2.5-4.0 gm/dl Albumin/Globulin Ratio 0.6 0.9-2 Microbiology Results 05/02/17 Gram Stain - Final, Resulted 05/02/17 Sputum Culture - Preliminary, Resulted MODERATE NORMAL LYDIA Present, Final ...
[2017-05-03] MEDS ORDERED: LVNIS100 SQ (11:58)
--- NOTE | 2017-05-03 12:01 | Discharge Instructions ---
Discharge Instructions Date of Service May 03, 2017. Admission Reason for Admission: Acute On Chronic Respiratory Failure With Hypoxia, Discharge Discharge Diagnosis / Problem: Acute on chronic Hypoxemic respiratory failure Discharge Goals Goal(s): Decrease discomfort, Improve function Activity Recommendations Activity Level: Bedrest . Additional Information Patient informed of condition: Yes Advance Directives: Yes DNR: Yes Level of Care: Other (Acute ) Communicable Disease: No Prognosis: Deteriorating Oxygen at (LPM): 70% High Flow Oxygen Instructions / Follow-Up Instructions / Follow-Up Follow up with Dr.Belinda Levy at [facility] for further Management as advised Please review Paper Chart for complete medication reconciliation Current Hospital Diet Patient's current hospital diet: Full Liquid Diet Discharge Diet Recommended Diet: Full Liquid Diet Pending Studies Studies pending at discharge: yes List of pending studies: Blood and Sputum cultures Medical Emergencies . Who to Call and When: Medical Emergencies: If at any time you feel your situation is an emergency, please call 911 immediately. . Non-Emergent Contact Non-Emergency issues call your: Primary Care Provider, Oncologist Call Non-Emergent contact if: you have a fever, your pain is not controlled, your pain is worsening, your pain is unusual for you, your pain is concerning you, you have any medication questions Seek immediate medical attention if your symptoms reoccur or worsen . . "Provider Documentation" section prepared by Rebel Trammell. . Core Measure Problem Core Measures: None
--- NOTE | 2017-05-03 12:04 | Discharge Summary ---
Discharge Summary Date of Service May 03, 2017. Discharge Summary Admission Date: May 02, 2017 at 12:21 Discharge Date: May 03, 2017 Discharge Disposition: Acute care facility Principal Diagnosis: Acute on chronic Hypoxemic respiratory failure, B/L PE, Metastatic melanoma, Myasthenia Gravis Procedures: CTA: 1. Bilateral lower lobe pulmonary emboli. 2. No evidence for right-sided heart strain. 3. Progression of metastatic disease most pronounced within the lungs as described above. Consultations: Pulmonology, Heme Oncology Pending Studies/Follow-Up: Follow up with Dr.Belinda Levy at [facility] for further Management as advised Medication Reconciliation New Medications: Enoxaparin (Enoxaparin Sodium) 100 Mg/Ml Inj 100 MG SQ Q12H for 1 Day Continued Medications: Amlodipine (Norvasc) 5 Mg Tab 7.5 MG PO QAM, TAB Aspirin (Aspirin Ec) 81 Mg Tab 81 MG PO DAILY Azathioprine (Imuran) 50 Mg Tab 50 MG PO QPM, TAB Cholecalciferol (Vitamin D3) 2,000 Unit Cap 2000 UNIT PO DAILY, 3 Refills Levothyroxine Sodium (Levothyroxine Sodium) 50 Mcg Tab 1 TAB PO DAILY, TAB Omeprazole (Prilosec) 40 Mg Cap 40 MG PO DAILY, CAP Pyridostigmine [place] (Mestinon) 60 Mg Tab 60 MG PO QID, TAB Discontinued Medications: Prednisone (Prednisone) 50 Mg Tab 50 MG PO DAILY, TAB TAPER DOSAGE, JUST STARTED 50MG TODAY (05/02) FOR 7 DAYS THEN 40 FOR 7 THEN 30 FOR 7 Admission Information HPI (per Admitting provider): This is a 76yo M with recently diagnosed melanoma with diffuse metastasis, chronic hypoxemic respiratory failure 2/2 lung mets, myasthenia gravis, HTN, hypothyroidism who presents with worsening SOB and a home O2 saturation reading of 83%. Was recently admitted 04/19-04/25 for acute hypoxemic respiratory failure in the setting of CAP. Had a CT of the chest/abd/pelvis with findings consistent with extensive metastatic disease with innumerable pulmonary and hepatic mass and numerous soft tissue implants, including intramuscular metastasis. Previously had malignant Melanoma in situ s/p rt nasal side wall removal on 09/27/[address] [facility] in [facility]. Was evaluated by Dr. Duke and a referral was made further evaluation at a cancer center in [facility] on 05/14. PNA was treated with zosyn and the patient was sent home on 3L NC. Blood and sputum cultures without growth. Since discharge, patient was wearing O2 continuously at home and feeling fine until last night, when he was SOB at rest. Sat up during the night because it was earlier to breath. This morning, O2 saturation was down to 83% on 3L NC so patient came to ED for further evaluation. Also endorses worsening productive cough with yellow sputum. Denies fever, chills, lightheadedness, chest pain, abd pain, nausea, vomiting, dysuria, constipation. Has chronic LE swelling but states that it is presently worse. Physical Exam (per Admitting): General Appearance: no apparent distress (conversational on bipap ), + obese Head: normocephalic, atraumatic Eyes: normal inspection, PERRL, sclerae normal ENT: hearing grossly normal, + pertinent finding (bipap mask ) Neck: supple, thyroid normal, trachea midline Respiratory/Chest: chest non-tender, lungs clear, normal breath sounds, no respiratory distress, no accessory muscle use Cardiovascular: regular rate, rhythm, no murmur, normal peripheral pulses, + pertinent finding (2+ pretibial pitting edema in bilateral LE ) Abdomen/GI: non tender, soft, no organomegaly Back: normal inspection Extremities/Musculoskelatal: normal inspection, no calf tenderness, non- tender Neurologic/Psych: no motor/sensory deficits, alert, normal mood/affect, oriented x 3 Skin: normal color, warm/dry, no rash Hospital Course Patient is a 76yr male with recently diagnosed melanoma with diffuse metastasis , chronic hypoxemic respiratory failure 2/2 lung mets, myasthenia gravis, Polycythemia Vera, HTN, hypothyroidism who presents with worsening SOB and a home O2 saturation reading of 83%. Acute on chronic hypoxemic respiratory failure: In setting of metastatic melanoma, bilateral lower lobe PEs, PNA Initially on bipap in ED. Saturation in the 90s Currently on High flow oxygen 70% Continue IV antibiotics (Vanco, Zosyn) Continue IV solu medrol Oxygen support Appreciate Pulmonology Input Patient would benefit by being transferred to Higher level of care for further management given his comorbidities and advanced disease. Patient requested [facility] as he is contact with and has a follow up in May, 2017. Given His Comorbidities, Discussed with Dr.Belinda Levy at [facility], who accepted the patient for further care. Bilateral lower lobe PEs: Likely secondary to Melanoma Continue IV Lovenox Discussed with Dr. Duke. at time of admission No evidence of R heart strain per CT read PNA: Leukocytosis improving Received one dose of Levaquin in ED Continue empiric abx with Zosyn, vanc Blood, sputum cultures pending Metastatic melanoma: S/p rt nasal side wall removal on 09/27/16 [address] [facility] CT of the chest/abdomen/pelvis 04/20 with innumerable pulmonary and hepatic mass and numerous soft tissue implants, including intramuscular and brain metastasis Poor prognosis Evaluated by palliative care last admission Patient preferred to be DNI/DNR Heme onc consulted. Appreciate Input BRAF mutation testing pending. If he has positive, will consider for starting Dabrafenib and Trametinib combination. Mild troponin elevation: Likely 2/2 demand ischemia No CP, ischemic changes on EKG CTA without R sided heart strain Trend cardiac enzymes Polycythemia Vera: Treated with intermittent phlebotomy. Normal EPO level and BRENDA 2 mutation negative Transaminitis: Likely 2/2 hepatic metastasis Hepatitis panel negative Myasthenia gravis: Continue Azathioprine 50 mg daily, Pyridostigmine 60 mg QID Solu-medrol 40mg Q8 HTN: Continue amlodipine Hypothyroidism: Continue Synthroid DVT Px: On Therapeutic dose lovenox Code status: DNI/DNR on my discussion with patient and his family Disposition: Plan to be discharged to [facility] for further care. Accepting Physician: Dr.Belinda Levy Total time spent on discharge = 45 minutes This includes examination of the patient, discharge planning, medication reconciliation, and communication with other providers. Discharge Instructions Discharge Instructions Date of Service May 03, 2017. Admission Reason for Admission: Acute On Chronic Respiratory Failure With Hypoxia, Discharge Discharge Diagnosis / Problem: Acute on chronic Hypoxemic respiratory failure Discharge Goals Goal(s): Decrease discomfort, Improve function Activity Recommendations Activity Level: Bedrest . Additional Information Patient informed of condition: Yes Advance Directives: Yes DNR: Yes Level of Care: Other (Acute ) Communicable Disease: No Prognosis: Deteriorating Oxygen at (LPM): 70% High Flow Oxygen Instructions / Follow-Up Instructions / Follow-Up Follow up with Dr.Belinda Levy at [facility] for further Management as advised Current Hospital Diet Patient's current hospital diet: Full Liquid Diet Discharge Diet Recommended Diet: Full Liquid Diet Pending Studies Studies pending at discharge: yes List of pending studies: Blood and Sputum cultures Medical Emergencies . Who to Call and When: Medical Emergencies: If at any time you feel your situation is an emergency, please call 911 immediately. . Non-Emergent Contact Non-Emergency issues call your: Primary Care Provider, Oncologist Call Non-Emergent contact if: you have a fever, your pain is not controlled, your pain is worsening, your pain is unusual for you, your pain is concerning you, you have any medication questions Seek immediate medical attention if your symptoms reoccur or worsen . . "Provider Documentation" section prepared by Rebel Trammell. . Core Measure Problem Core Measures: None <Electronically signed by Rebel Trammell MD> Signed: 05/03/17 1201 Signed: The status of this report is Signed * If report status is Draft, the document has not been finalized by the responsible provider.
[2017-05-03 12:12] VITALS: BP 128/75; PULSE 91; TEMP 36.7; O2SAT 94
--- NOTE | 2017-05-03 12:15 | Pulmonology Progress Note ---
Pulmonary Progress Note Date of Service May 03, 2017. Attending Dr. Hodges Subjective Patient seen and examined at bedside. Patient requested a family meeting with Dr. Trammell, to discuss goal of care. Patient states that he slept well overnight on high flow nasal cannula. He denies any shortness of breath, cough or chest pain. His main concern is that the melanoma is not being adequately addressed. Has requested to be transferred [facility] to be seen at [facility] for further management of melanoma and myasthenia gravis. Objective Vital signs reviewed. MAXIMUM TEMPERATURE 36.7, blood pressure 122/69 to 152/ 82, pulse 70 92, respiratory rate 18-22, pulse oximetry 92-94% on 50 L/m and FiO2 70% high flow nasal cannula. He is currently 1.2 L positive balance since admission. Gen.: Awake alert oriented, speaking in full sentences without use of accessory muscles of respiration CVS: S1-S2 regular rate and rhythm Lungs: Good air entry bilaterally, crackles at bases, mildly tachypneic Abdomen: soft, nontender, nondistended, bowel sounds positive Extremities: Improvement of bilateral lower extremity edema. Right lower extremity still remains slightly enlarged compared to left. No cyanosis, no clubbing. Labs reviewed. White blood cell count down from 21 to 16. Troponin 0.07 0.044, 0.57. Sputum culture-pending. Blood cultures-pending Medications reviewed. Imaging reviewed. Assessment & Plan Acute on chronic hypoxemic respiratory failure Melanoma with metastasis to brain, bone, lung, liver Pulmonary emboli Myasthenia gravis Hypothyroidism Mr Shaikh has the unfortunate diagnosis of metastatic melanoma to multiple organs including the lung. He presented yesterday 05/02/2017 with worsening shortness of breath and hypoxemia. He was found to have new bilateral pulmonary emboli. He is currently on full dose anticoagulation with Lovenox. He continues to require increased amounts of oxygen to maintain saturations above 90%. He is currently on high flow nasal cannula 50 L/m, FiO2 70%. Patient has [place] He has been accepted and awaiting transfer pending bed availability. At the current time, I would treat him for acute pulmonary emboli with full dose Lovenox. Continue with HFNC supplemental oxygenation to maintain SaO2 > 92%. Continue with nebulizer treatments prn. Repeat white blood cell count likely elevated due to prednisone. Infectious etiology less likely, however can continue to treat empirically with broad- spectrum antibiotics to cover for hospital-acquired pneumonia. Continue with steroid taper. Continue all other management per primary team. Awaiting transfer. His overall prognosis is poor. Please contact me if you have any other questions or concerns. Data Medications: Current Inpatient Medications Medications (Trade) Dose Ordered Sig/Kevin Route Start Time Stop Time Status Last Admin Dose Admin Ondansetron HCl (Zofran Inj) 4 mg Q6H PRN IV 05/02/17 12:30 06/01/17 12:29 Ioversol (Optiray 320) 125 ml UD PRN IV 05/02/17 12:30 05/06/17 12:29 Methylprednisolone Sodium Succinate 40 mg/Syringe 0.64 ml @ 1.5 mls/min Q8 IV 05/02/17 14:42 06/01/17 13:59 05/03/17 05:28 1.5 MLS/MIN Amlodipine Bes[place] (Norvasc Tab) 7.5 mg QAM PO 05/03/17 09:00 06/02/17 08:59 05/03/17 08:22 7.5 MG Aspirin (Ecotrin Tab) 81 mg DAILY PO 05/03/17 09:00 06/02/17 08:59 05/03/17 08:22 81 MG Azathioprine (Imuran Tab) 50 mg QPM PO 05/02/17 21:00 06/01/17 20:59 05/02/17 20:05 50 MG Levothyroxine Sodium (Synthroid Tab) 50 mcg DAILYBB PO 05/03/17 06:00 06/02/17 05:59 05/03/17 05:28 50 MCG Pyridostigmine [place] (Mestinon Tab) 60 mg QID PO 05/02/17 13:00 06/01/17 12:59 05/03/17 08:21 60 MG Cholecalciferol (Vitamin D Tab) 2,000 inter.unit DAILY PO 05/03/17 09:00 06/02/17 08:59 05/03/17 08:21 2,000 INTER.UNIT Pantoprazole Sodium (Protonix Tab) 40 mg DAILY PO 05/03/17 09:00 06/02/17 08:59 05/03/17 08:22 40 MG Vancomycin HCl 1500 mg/Sodium Chloride 530 ml @ 200 mls/hr Q12H IV 05/03/17 02:00 05/10/17 01:59 05/03/17 02:04 200 MLS/HR Vancomycin HCl (Consult) 1 ea UD PRN N/A 05/02/17 14:15 06/01/17 14:14 Piperacillin Sod/ Tazobactam Sod 3.375 gm/Dextrose 115 ml @ 28.75 mls/ hr Q8H IV 05/02/17 20:00 05/09/17 19:59 05/03/17 11:25 28.75 MLS/HR Piperacillin Sod/ Tazobactam Sod (Consult) 1 ea UD PRN N/A 05/02/17 14:15 06/01/17 14:14 Enoxaparin Sodium (Lovenox Inj) 100 mg Q12H SQ 05/02/17 20:00 06/01/17 19:59 05/03/17 08:22 100 MG Vital Signs: Date Time Temp Pulse Resp B/P (MAP) Pulse Ox O2 Delivery O2 Flow Rate FiO2 05/03/17 08:30 High Flow Oxygen 50.0 70 05/03/17 08:13 36.7 92 22 122/69 (86) 92 High Flow Oxygen 50.0 70 05/03/17 04:00 94 High Flow Oxygen 50.0 70 05/03/17 03:19 36.7 70 18 152/82 (105) 94 High Flow Oxygen 05/02/17 23:59 92 High Flow Oxygen 50.0 70 05/02/17 23:59 36.8 68 20 129/73 (91) 93 High Flow Oxygen 50.0 70 05/02/17 20:00 92 High Flow Oxygen 45.0 65 05/02/17 19:15 37.2 75 20 126/75 (92) 92 High Flow Oxygen 05/02/17 16:14 35.9 74 20 128/76 (93) 92 BiPAP 05/02/17 16:00 BiPAP 05/02/17 14:02 36.5 83 20 125/74 97 BiPAP 50 05/02/17 13:28 77 97 50 05/02/17 12:32 87 05/02/17 12:30 88 20 123/88 96 BiPAP 05/02/17 12:00 80 22 114/72 88 Nasal Cannula 6.0 05/02/17 12:00 86 28 114/72 86 Nasal Cannula 6.0 Laboratory Results: Last 24 Hours Test 05/02/17 13:54 05/02/17 15:52 05/02/17 21:42 05/03/17 06:15 Influenza Type A (RT-PCR) Neg for Influ A Influenza Type B (RT-PCR) Neg for Influ B Total Creatine Kinase 133 U/L 133 U/L Creatine Kinase MB 4.0 ng/ml 4.0 ng/ml Creatine Kinase MB Ratio 3.0 3.0 Troponin I 0.044 ng/ml 0.057 ng/ml White Blood Count 16.64 K/uL Red Blood Count 4.82 M/uL Hemoglobin 11.8 g/dL Hematocrit 38.6 % Mean Corpuscular Volume 80.1 fL Mean Corpuscular Hemoglobin 24.5 pg Mean Corpuscular Hemoglobin Concent 30.6 g/dl RDW Standard Deviation 50.9 fL RDW Coefficient of Variation 17.7 % Platelet Count 266 K/uL Mean Platelet Volume 9.4 fL Prothrombin Time 10.6 SECONDS Prothromb Time International Ratio 1.0 Activated Partial Thromboplast Time 33.6 SECONDS Partial Thromboplastin Ratio 1.3 Sodium Level 138 mmol/L Potassium Level 3.6 mmol/L Chloride Level 102 mmol/L Carbon Dioxide Level 29 mmol/L Anion Gap 7.0 mmol/L Blood Urea Nitrogen 17 mg/dl Creatinine 0.83 mg/dl Est Creatinine Clear Calc Drug Dose 86.0 ml/min Estimated GFR () 99.8 Estimated GFR (Non- 86.1 BUN/Creatinine Ratio 20.5 Random Glucose 124 mg/dl Calcium Level 8.2 mg/dl Total Bilirubin 1.1 mg/dl Aspartate Amino Transf (AST/SGOT) 115 U/L Alanine Aminotransferase (ALT/SGPT) 106 U/L Alkaline Phosphatase 183 U/L Total Protein 5.1 gm/dl Albumin 2.0 gm/dl Globulin 3.1 gm/dl Albumin/Globulin Ratio 0.6
[2017-05-03 15:58] VITALS: BP 132/80; PULSE 72; TEMP 36.8; O2SAT 95
[2017-05-03 18:30] VITALS: BP 132/80; PULSE 72; TEMP 36.8; O2SAT 95
[2017-05-04] MEDS ORDERED: VANCOMYCIN TROUGH ONE (01:30)
--- NOTE | 2017-05-07 10:28 | Palliative Care Progress Note ---
Palliative Care Progress Note Date of Service May 07, 2017. Subjective Returned today after being off for holiday. Consult placed on 05/02, patient transferred to [facility] 05/03 before palliative consult completed.
== END 2017-05-03 19:45 | disposition short-term general hospital (02) | DRG 189 ==
LOC: C.EDB 08:50 → C.2E 12:21 → ENRESERV 12:33
PROVIDERS: ADMIT Internal Medicine; ATTEND Internal Medicine
DX: J96.21 Acute and chronic respiratory failure with hypoxia (principal); J18.9 Pneumonia, unspecified organism; I26.99 Other pulmonary embolism without acute cor pulmonale; C79.89 Secondary malignant neoplasm of other specified sites; E87.2 Acidosis; C78.7 Secondary malignant neoplasm of liver and intrahepatic bile duct; C78.00 Secondary malignant neoplasm of unspecified lung; I10 Essential (primary) hypertension; E03.9 Hypothyroidism, unspecified; H54.8 Legal blindness, as defined in USA; K22.70 Barrett's esophagus without dysplasia; D45 Polycythemia vera; Z79.82 Long term (current) use of aspirin; Z87.01 Personal history of pneumonia (recurrent)